=== PATIENT | male | born 1940 | race Hispanic/Latino ===

== ENCOUNTER 2018-05-10 09:44 | Emergency (ER) | payer OTHER ==
--- NOTE | 2018-05-10 10:45 | RAD REPORT ---
EXAM DESCRIPTION: RAD - Knee Left 3 View - 05/10/2018 10:40 am CLINICAL HISTORY: PAIN COMPARISON: No comparisons FINDINGS: Mild tricompartmental osteoarthritic changes are present, greatest in the medial joint com partment. No fracture, dislocation or joint effusion is evident. 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
--- NOTE | 2018-05-10 10:55 | ER ---
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 Transition of care: patient was not received from another setting of care. Onset of symptoms was May 10, 2018. Risk Assessment: Do you want to hurt yourself or someone else? Patient reports no desire to harm self or others. Initial Sepsis Screen: Does the patient meet any 2 criteria? No. Patient's initial sepsis screen is negative. Does the patient have a suspected source of infection? No. Patient's initial sepsis screen is negative. Care prior to arrival: None. 10:08 Method Of Arrival: Ambulatory tw2 10:08 Acuity: [place] 4 tw2 Triage Assessment: 10:12 General: Appears in no apparent distress. well groomed, Behavior is calm, cooperative, tw2 appropriate for age. Pain: Complains of pain in left knee. Historical: - Allergies: 10:11 No Known Allergies; tw2 - Home Meds: 10:11 metoprolol tartrate 25 mg Oral tab 2 tabs once daily [Active]; atorvastatin 80 mg oral tw2 tab 1 tab once daily [Active]; glucosamine-chondroitin oral oral [Active]; Multiple Vitamins oral tab [Active]; - PMHx: 10:11 Hypertension; Hyperlipidemia; tw2 - PSHx: 10:11 hydrocele repair; Heart stents; tw2 - Immunization history:: Adult Immunizations. - Social history:: Smoking status: . - Ebola Screening: : Patient denies travel to an Ebola-affected area in the 21 days before illness onset. Screenin:50 Abuse screen: Denies threats or abuse. Denies injuries from another. Nutritional iw screening: No deficits noted. Tuberculosis screening: No symptoms or risk factors identified. Fall Risk None identified. Assessment: 10:30 General: Appears in no apparent distress. comfortable, Behavior is calm, cooperative. iw Pain: Complains of pain in left knee. Neuro: Level of Consciousness is awake, alert, obeys commands, Oriented to person, place, time. Cardiovascular: Patient's skin is warm and dry. Respiratory: Respiratory effort is even, unlabored. Derm: Skin is intact, is healthy with good turgor. Musculoskeletal: Range of motion: limited in left knee. Vital Signs: 10:11 BP 146 / 51; Pulse 66; Resp 18; Temp 97.2(O); Pulse Ox 99% on R/A; Pain 4/10; tw2 ED Course: 09:48 Patient arrived in ED. dl4 09:48 Justen Starks MD is Private Physician. dl4 10:09 Triage completed. tw2 10:12 Arm band placed on. tw2 10:16 Jostin Patterson PA is PHCP. jr8 10:16 Hans Feldman MD is Attending Physician. jr8 10:30 Patient has correct armband on for positive identification. iw 10:40 X-ray completed. Portable x-ray completed in exam room. Patient tolerated procedure sw well. 10:40 XRAY Knee LEFT 3 view In Process Unspecified. EDMS 10:49 Riddhi Yung, RN is Primary Nurse. iw 10:54 Heath Garcia MD is Referral Physician. jr8 11:00 No provider procedures requiring assistance completed. Patient did not have IV access iw during this emergency room visit. Administered Medications: No medications were administered Outcome: 10:55 Discharge ordered by . jr8 11:00 Discharged to home ambulatory. iw 11:00 Condition: good 11:00 Discharge instructions given to patient, Instructed on discharge instructions, follow up and referral plans. medication usage, Demonstrated understanding of instructions, follow-up care, medications, Prescriptions given X 1. 11:03 Patient left the ED. iw Signatures: Dispatcher [employer] EDMS Riddhi Yung RN RN iw Jostin Patterson PA PA jr8 Virginia Lambert Chaparrita Grimaldo RN RN tw2 Dk Bee dl4
--- NOTE | 2018-05-10 10:55 | EDPHYS ---
Physician Documentation [facility] Name: Cordell Patterson Age: 78 yrs Sex: Male : 1940 Arrival Date: 05/10/2018 Time: 09:48 Bed 11 Private MD: Justen Starks ED Physician Hans Feldman HPI: 05/10 10:50 This 78 yrs old Male presents to ER via Ambulatory with complaints of Knee jr8 Pain. 10:50 The patient presents with pain. The complaints affect the left knee. Onset: The jr8 symptoms/episode began/occurred gradually, 2 day(s) ago. Modifying factors: The symptoms are alleviated by elevating leg, remaining still, the symptoms are aggravated by movement, weight bearing, bending knee. Associated signs and symptoms: The patient has no apparent associated signs or symptoms. Severity of symptoms: At their worst the symptoms were mild, in the emergency department the symptoms are unchanged. The patient has not experienced similar symptoms in the past. The patient has not recently seen a physician. 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 Stated that he started to have left knee pain with mild swelling. Denies trauma. Historical: - Allergies: 10:11 No Known Allergies; tw2 - Home Meds: 10:11 metoprolol tartrate 25 mg Oral tab 2 tabs once daily [Active]; atorvastatin 80 mg oral tw2 tab 1 tab once daily [Active]; glucosamine-chondroitin oral oral [Active]; Multiple Vitamins oral tab [Active]; - PMHx: 10:11 Hypertension; Hyperlipidemia; tw2 - PSHx: 10:11 hydrocele repair; Heart stents; tw2 - Immunization history:: Adult Immunizations. - Social history:: Smoking status: . - Ebola Screening: : Patient denies travel to an Ebola-affected area in the 21 days before illness onset. ROS: 10:50 Eyes: Negative for injury, pain, redness, and discharge, ENT: Negative for injury, jr8 pain, and discharge, Neck: Negative for injury, pain, and swelling, Cardiovascular: Negative for chest pain, palpitations, and edema, Respiratory: Negative for shortness of breath, cough, wheezing, and pleuritic chest pain, Abdomen/GI: Negative for abdominal pain, nausea, vomiting, diarrhea, and constipation, Back: Negative for injury and pain, Skin: Negative for injury, rash, and discoloration, Neuro: Negative for headache, weakness, numbness, tingling, and seizure. 10:50 MS/extremity: Positive for pain, swelling, tenderness, of the left knee. Exam: 10:50 Eyes: Pupils equal round and reactive to light, extra-ocular motions intact. Lids and jr8 lashes normal. Conjunctiva and sclera are non-icteric and not injected. Cornea within normal limits. Periorbital areas with no swelling, redness, or edema. ENT: Nares patent. No nasal discharge, no septal abnormalities noted. Tympanic membranes are normal and external auditory canals are clear. Oropharynx with no redness, swelling, or masses, exudates, or evidence of obstruction, uvula midline. Mucous membranes moist. Neck: Trachea midline, no thyromegaly or masses palpated, and no cervical lymphadenopathy. Supple, full range of motion without nuchal rigidity, or vertebral point tenderness. No Meningismus. Cardiovascular: Regular rate and rhythm with a normal S1 and S2. No gallops, murmurs, or rubs. Normal PMI, no JVD. No pulse deficits. Respiratory: Lungs have equal breath sounds bilaterally, clear to auscultation and percussion. No rales, rhonchi or wheezes noted. No increased work of breathing, no retractions or nasal flaring. Abdomen/GI: Soft, non-tender, with normal bowel sounds. No distension or tympany. No guarding or rebound. No evidence of tenderness throughout. Back: No spinal tenderness. No costovertebral tenderness. Full range of motion. Skin: Warm, dry with normal turgor. Normal color with no rashes, no lesions, and no evidence of cellulitis. Neuro: Awake and alert, GCS 15, oriented to person, place, time, and situation. Cranial nerves II-XII grossly intact. Motor strength 5/5 in all extremities. Sensory grossly intact. Cerebellar exam normal. Normal gait. 10:50 Musculoskeletal/extremity: Extremities: grossly normal except: noted in the left knee: pain, tenderness, ROM: intact in all extremities, Circulation is intact in all extremities. Sensation intact. Vital Signs: 10:11 BP 146 / 51; Pulse 66; Resp 18; Temp 97.2(O); Pulse Ox 99% on R/A; Pain 4/10; tw2 MDM: 10:22 Patient medically screened. jr8 10:50 Data reviewed: vital signs, nurses notes, radiologic studies, plain films, and as a jr8 result, I will discharge patient. Data interpreted: Pulse oximetry: on room air is 99 %. Interpretation: normal. Counseling: I had a detailed discussion with the patient and/or guardian regarding: the historical points, exam findings, and any diagnostic results supporting the discharge/admit diagnosis, radiology results, the need for outpatient follow up, a orthopedic surgeon, to return to the emergency department if symptoms worsen or persist or if there are any questions or concerns that arise at home. 05/10 10:22 Order name: XRAY Knee LEFT 3 view; Complete Time: 10:50 jr8 Administered Medications: No medications were administered Disposition: 11:05 Co-signature as Attending Physician, Hans Feldman MD I agree with the assessment and kdr plan of care. Disposition: 05/10/18 10:55 Discharged to Home. Impression: Osteoarthritis of knee, Pain in left knee. - Condition is Stable. - Discharge Instructions: Joint Pain, Arthritis, Knee Pain. - Prescriptions for Mobic 7.5 mg Oral Tablet - take 1 tablet by ORAL route once daily for 7 days take with food; 7 tablet. - Medication Reconciliation Form, Thank You Letter, Antibiotic Education, Prescription Opioid Use form. - Follow up: Heath Garcia MD; When: 1 week; Reason: Recheck today's complaints, Continuance of care, Re-evaluation by your physician. - Problem is new. - Symptoms have improved. Signatures: Dispatcher [employer] EDNC Hans Feldman MD MD kdr Riddhi Yung, RICKEY RN iw Jostin Patterson PA PA jr8 Chaparrita Grimaldo, RN RN tw2 Corrections: (The following items were deleted from the chart) 11:03 10:55 05/10/2018 10:55 Discharged to Home. Impression: Osteoarthritis of knee; Pain in iw left knee. Condition is Stable. Forms are Medication Reconciliation Form, Thank You Letter, Antibiotic Education, Prescription Opioid Use. Follow up: Heath Garcia; When: 1 week; Reason: Recheck today's complaints, Continuance of care, Re-evaluation by your physician. Problem is new. Symptoms have improved. jr8
[2018-05-10 11:15] VITALS: BP 146/51; TEMP 97.2; O2SAT 99
== END 2018-05-10 11:03 | disposition home or self-care (01) ==
LOC: ER 09:44
DX: M17.12 Unilateral primary osteoarthritis, left knee (principal); I10 Essential (primary) hypertension; E78.5 Hyperlipidemia, unspecified; Z95.818 Presence of other cardiac implants and grafts
CPT/HCPCS: 99283

== ENCOUNTER 2018-05-15 08:08 | Emergency (ER) | payer OTHER ==
--- NOTE | 2018-05-15 08:43 | EDPHYS ---
Physician Documentation [facility] Name: Cordell Patterson Age: 78 yrs Sex: Male : 1940 Arrival Date: 05/15/2018 Time: 08:11 Bed 13 Private MD: Justen Starks ED Physician Chau Berrios HPI: 05/15 08:33 This 78 yrs old Male presents to ER via Ambulatory with complaints of Pain cp meds not working, Knee Pain. 08:34 The patient presents with pain, that is acute. The complaints affect the left knee. cp Context: resulted from an unknown cause, the patient can fully bear weight, can ambulate using a cane. Onset: The symptoms/episode began/occurred 2 week(s) ago. Associated signs and symptoms: Pertinent negatives fever, swelling, warmth, weakness. Treatment prior to arrival includes: prescription medications, Mobic. 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 Denies injury to knee and believes getting in and out of forklift has caused pain. Patient was seen 05-10-2018 for similar complaints and had xrays taken at that visit . 08:34 Patient reports he has appt with DR Winn . cp Historical: - Allergies: 08:16 No Known Allergies; ss - Home Meds: 08:16 atorvastatin 80 mg Oral tab 1 tab once daily [Active]; metoprolol tartrate 25 mg Oral ss tab 2 tabs once daily [Active]; glucosamine-chondroitin Oral [Active]; Multiple Vitamins Oral tab [Active]; Mobic oral oral [Active]; - PMHx: 08:16 Hyperlipidemia; Hypertension; ss - PSHx: 08:16 hydrocele repair; Heart stents; ss - Immunization history:: Adult Immunizations up to date. - Social history:: Smoking status: Patient/guardian denies using tobacco. - Ebola Screening: : Patient denies exposure to infectious person Patient denies travel to an Ebola-affected area in the 21 days before illness onset. ROS: 08:36 Constitutional: Negative for body aches, fever. cp 08:36 Cardiovascular: Negative for chest pain. 08:36 Respiratory: Negative for cough, shortness of breath, wheezing. 08:36 Abdomen/GI: Negative for abdominal pain, nausea, vomiting, and diarrhea. 08:36 MS/extremity: Positive for pain, of the left knee, Negative for injury or acute deformity, decreased range of motion, swelling. 08:36 Skin: Negative for cellulitis, rash. 08:36 All other systems are negative. Exam: 08:38 Head/Face: Normocephalic, atraumatic. cp 08:38 Constitutional: The patient appears in no acute distress, alert, awake, comfortable, non-toxic, well developed, well nourished. 08:39 Eyes: Periorbital structures: appear normal, Conjunctiva: normal, no exudate, no cp injection, Sclera: no appreciated abnormality, Lids and lashes: appear normal, bilaterally. 08:39 ENT: External ear(s): are unremarkable, Nose: is normal, Mouth: is normal. 08:39 Chest/axilla: Inspection: normal. 08:39 Cardiovascular: Rate: normal. 08:39 Respiratory: the patient does not display signs of respiratory distress, Respirations: normal, no use of accessory muscles, no retractions, no splinting, no tachypnea. 08:39 Abdomen/GI: Exam negative for discomfort, distension, guarding, Inspection: abdomen appears normal. 08:39 Back: pain, is absent. 08:39 Musculoskeletal/extremity: Joints: All joints are normal except the left knee displays pain with weight bearing, no ROM limit, no swelling, no erythema noted. Vital Signs: 08:16 BP 170 / 69; Pulse 56; Resp 16; Temp 97.7(TE); Pulse Ox 99% on R/A; Weight 81.65 kg; ss Height 5 ft. 8 in. (172.72 cm); Pain 10/10; 09:05 BP 168 / 70; Pulse 56; Resp 18; Pulse Ox 100% on R/A; hj 08:16 Body Mass Index 27.37 (81.65 kg, 172.72 cm) ss MDM: 08:18 Patient medically screened. cp 08:41 Data reviewed: vital signs, nurses notes, old medical records, and as a result, I will cp discharge patient. 08:41 Counseling: I had a detailed discussion with the patient and/or guardian regarding: the cp historical points, exam findings, and any diagnostic results supporting the discharge/admit diagnosis, the need for outpatient follow up, for definitive care, a orthopedic surgeon, to return to the emergency department if symptoms worsen or persist or if there are any questions or concerns that arise at home. Administered Medications: No medications were administered Disposition: 09:15 Chart complete. cp 14:30 Co-signature as Attending Physician, Chau Berrios MD. rn Disposition: 05/15/18 08:42 Discharged to Home. Impression: Pain in left knee. - Condition is Stable. - Discharge Instructions: Elastic Bandage and RICE, Knee Pain. - Prescriptions for Tramadol 50 mg Oral Tablet - take 1 tablet by ORAL route every 8 hours as needed. 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 - Medication Reconciliation Form, Thank You Letter, Antibiotic Education, Prescription Opioid Use form. - Follow up: Howard Winn MD; When: as scheduled; Reason: Recheck today's complaints. - Problem is an ongoing problem. - Symptoms are unchanged. Signatures: Chau Berrios MD MD rn Smirch, Shelby, RN RN ss Joaquin, Henry, RN RN hj Page, Corey, PA PA cp Corrections: (The following items were deleted from the chart) 09:05 08:42 05/15/2018 08:42 Discharged to Home. Impression: Pain in left knee. Condition is hj Stable. Forms are Medication Reconciliation Form, Thank You Letter, Antibiotic Education, Prescription Opioid Use. Follow up: Howard Winn; When: as scheduled; Reason: Recheck today's complaints. Problem is an ongoing problem. Symptoms are unchanged. cp
--- NOTE | 2018-05-15 08:43 | ER ---
Nurse's Notes [facility] Name: Cordell Patterson Age: 78 yrs Sex: Male : 1940 Arrival Date: 05/15/2018 Time: 08:11 Bed 13 Private MD: Justen Starks Diagnosis: Pain in left knee Presentation: 05/15 08:14 Presenting complaint: Patient states: L knee pain x 2 weeks. Pt was prescribed Mobic ss for pain, but reports it isn't helping at all with his pain. Transition of care: patient was not received from another setting of care. Onset of symptoms was May 01, 2018. Risk Assessment: Do you want to hurt yourself or someone else? Patient reports no desire to harm self or others. Initial Sepsis Screen: Does the patient meet any 2 criteria? No. Patient's initial sepsis screen is negative. Does the patient have a suspected source of infection? No. Patient's initial sepsis screen is negative. Care prior to arrival: None. 08:14 Method Of Arrival: Ambulatory ss 08:14 Acuity: [place] 4 ss Triage Assessment: 08:33 General: Appears in no apparent distress. uncomfortable, Behavior is calm, cooperative, hj appropriate for age. Pain: Complains of pain in left knee. Historical: - Allergies: 08:16 No Known Allergies; ss - Home Meds: 08:16 atorvastatin 80 mg Oral tab 1 tab once daily [Active]; metoprolol tartrate 25 mg Oral ss tab 2 tabs once daily [Active]; glucosamine-chondroitin Oral [Active]; Multiple Vitamins Oral tab [Active]; Mobic oral oral [Active]; - PMHx: 08:16 Hyperlipidemia; Hypertension; ss - PSHx: 08:16 hydrocele repair; Heart stents; ss - Immunization history:: Adult Immunizations up to date. - Social history:: Smoking status: Patient/guardian denies using tobacco. - Ebola Screening: : Patient denies exposure to infectious person Patient denies travel to an Ebola-affected area in the 21 days before illness onset. Screenin:33 Abuse screen: Denies threats or abuse. Denies injuries from another. Nutritional hj screening: No deficits noted. Tuberculosis screening: No symptoms or risk factors identified. Fall Risk None identified. Assessment: 08:34 General: Appears in no apparent distress. uncomfortable, Behavior is calm, cooperative, hj appropriate for age. Pain: Complains of pain in left knee. Neuro: Level of Consciousness is awake, alert, obeys commands, Oriented to person, place, time, situation, Appropriate for age. Cardiovascular: Capillary refill < 3 seconds Patient's skin is warm and dry. Respiratory: Airway is patent Respiratory effort is even, unlabored, Respiratory pattern is regular, symmetrical. GI: No signs and/or symptoms were reported involving the gastrointestinal system. : No signs and/or symptoms were reported regarding the genitourinary system. EENT: No signs and/or symptoms were reported regarding the EENT system. Derm: No signs and/or symptoms reported regarding the dermatologic system. Musculoskeletal: Circulation, motion, and sensation intact. Range of motion:. 09:04 Reassessment: Patient and/or family updated on plan of care and expected duration. Pain hj level reassessed. Patient is alert, oriented x 3, equal unlabored respirations, skin warm/dry/pink. D/C instructions given;. Vital Signs: 08:16 BP 170 / 69; Pulse 56; Resp 16; Temp 97.7(TE); Pulse Ox 99% on R/A; Weight 81.65 kg; ss Height 5 ft. 8 in. (172.72 cm); Pain 10/10; 09:05 BP 168 / 70; Pulse 56; Resp 18; Pulse Ox 100% on R/A; hj 08:16 Body Mass Index 27.37 (81.65 kg, 172.72 cm) ED Course: 08:11 Patient arrived in ED. mr 08:12 Justen Starks MD is Private Physician. mr 08:15 Triage completed. ss 08:16 Arm band placed on left wrist. ss 08:18 Elder Yap PA is PHCP. cp 08:18 Chau Berrios MD is Attending Physician. cp 08:20 Daniel Valerio RN is Primary Nurse. hj 08:33 Patient has correct armband on for positive identification. Bed in low position. Call hj light in reach. Side rails up X 1. Adult w/ patient. 08:41 Howard Winn MD is Referral Physician. cp 09:03 No provider procedures requiring assistance completed. Patient did not have IV access hj during this emergency room visit. Administered Medications: No medications were administered Outcome: 08:42 Discharge ordered by . cp 09:04 Discharged to home ambulatory. 09:04 Condition: stable 09:04 Discharge instructions given to patient, Instructed on discharge instructions, follow up and referral plans. medication usage, Demonstrated understanding of instructions, follow-up care, medications, Prescriptions given X 1. 09:05 Patient left the ED. Signatures: Holly Ha Shelby, RN RN Daniel Valerio RN RN hj Elder Yap, [place] DO cp
[2018-05-15 09:41] VITALS: TEMP 97.7
[2018-05-15 09:42] VITALS: BP 168/70; O2SAT 100
== END 2018-05-15 09:05 | disposition home or self-care (01) ==
LOC: ER 08:08
DX: M25.562 Pain in left knee (principal); E78.5 Hyperlipidemia, unspecified; I10 Essential (primary) hypertension
CPT/HCPCS: 99282

== ENCOUNTER 2018-09-22 08:46 | Emergency (ER) | payer OTHER ==
[2018-09-22 10:43] LABS: Basophils % 0.6 % (0-1.3); Hematocrit 38.7 % (39.6-49.0); Lymphocytes % 20.1 % (15.3-44.8); MPV 9.8 fL (7.6-11.3); RBC Red Blood Cell Count 3.99 M/uL (4.33-5.43)
--- NOTE | 2018-09-22 10:46 | RAD REPORT ---
EXAM DESCRIPTION: Umesh Single View09/22/2018 10:40 am CLINICAL HISTORY: Shortness of breath COMPARISON: 2013 FINDINGS: The lungs appear clear of acute infiltrate. The heart is normal size. Aorta is tortuous/e ctatic IMPRESSION: No acute abnormalities displayed
[2018-09-22 10:58] LABS: Protime INR 0.99
[2018-09-22 11:18] LABS: ALT/SGPT 26 U/L (12-78); AST/SGOT 17 U/L (15-37); Albumin 3.7 g/dL (3.4-5.0); Alkaline Phosphatase 113 U/L (45-117); BUN Blood Urea Nitrogen 24 mg/dL (7-18); Bicarbonate 29 mmol/L (21-32); Bilirubin Direct 0.1 mg/dL (0-0.2); Bilirubin Total 0.4 mg/dL (0.2-1.0); Glucose Level 146 mg/dL (74-106); Magnesium 2.3 mg/dL (1.8-2.4); NT PRO-BNP 104 pg/mL (<450); Potassium 3.9 mmol/L (3.5-5.1); Protein, Total 7.3 g/dL (6.4-8.2); Sodium Level 143 mmol/L (136-145); Troponin (Emerg Dept Use Only) < 0.02 ng/mL (0.0-0.045)
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
--- NOTE | 2018-09-22 12:17 | ER ---
Nurse's Notes [facility] Name: Cordell Patterson Age: 78 yrs Sex: Male : 1940 Arrival Date: 09/22/2018 Time: 08:49 Bed 13 Private MD: Justen Starks Diagnosis: Anxiety disorder, unspecified Presentation: 09/22 09:05 Presenting complaint: Patient states: "I keep getting anxiety attacks for about 6 weeks aa5 now and when I get them it's hard to breath". Pt states "I've had them since I was little". Pt calm in triage, appears comfortable. Transition of care: patient was not received from another setting of care. 09:05 Method Of Arrival: Ambulatory aa5 09:05 Acuity: [place] 3 aa5 09:07 Onset of symptoms was 2019. Risk Assessment: Do you want to hurt yourself or someone aa5 else? Patient reports no desire to harm self or others. Initial Sepsis Screen: Does the patient meet any 2 criteria? No. Patient's initial sepsis screen is negative. Does the patient have a suspected source of infection? No. Patient's initial sepsis screen is negative. Care prior to arrival: None. Historical: - Allergies: 09:00 No Known Allergies; aa5 - PMHx: 09:00 Hyperlipidemia; Hypertension; aa5 - PSHx: 09:00 hydrocele repair; Heart stents; aa5 - Immunization history:: Flu vaccine is up to date. - Social history:: Smoking status: Patient/guardian denies using tobacco. - Ebola Screening: : No symptoms or risks identified at this time. Screenin:32 Abuse screen: Denies threats or abuse. Denies injuries from another. Nutritional sg screening: No deficits noted. Tuberculosis screening: No symptoms or risk factors identified. Never had TB. Fall Risk None identified. Assessment: 10:30 Reassessment: pt reports having increased anxiety that causes shortness of breath. sg General: Appears in no apparent distress. well groomed, well developed, well nourished, Behavior is calm, cooperative, appropriate for age, quiet. Pain: Denies pain. Neuro: Level of Consciousness is awake, alert, obeys commands, Oriented to person, place, time, situation, [employer] Supervisor are equal bilaterally Moves all extremities. Full function Gait is steady, Speech is normal, Facial symmetry appears normal. Cardiovascular: Capillary refill is brisk in bilateral fingers Patient's skin is warm and dry. Chest pain is denied. Respiratory: Airway is patent Respiratory effort is even, unlabored, Respiratory pattern is regular, symmetrical. GI: Abdomen is round non-distended, Reports normal bowel habits, tolerance of fluids, tolerance of food. : No signs and/or symptoms were reported regarding the genitourinary system. EENT: No signs and/or symptoms were reported regarding the EENT system. Derm: Skin is pink, warm \\T\\ dry. Derm: No signs and/or symptoms reported regarding the dermatologic system. Musculoskeletal: Circulation, motion, and sensation intact. Range of motion: intact in all extremities. Vital Signs: 09:09 BP 127 / 68; Pulse 64; Resp 16 S; Temp 98.2(TE); Pulse Ox 98% on R/A; Weight 81.65 kg aa5 (R); Height 5 ft. 8 in. (172.72 cm) (R); Pain 0/10; 10:56 BP 127 / 68; Pulse 47; Resp 16; Temp 98.0(O); Pulse Ox 98% ; mh5 12:01 BP 131 / 61; Pulse 47; Resp 16; Temp 98.2(O); Pulse Ox 97% on R/A; mh5 09:09 Body Mass Index 27.37 (81.65 kg, 172.72 cm) aa5 ED Course: 08:49 Patient arrived in ED. rg4 08:50 Justen Starks MD is Private Physician. rg4 09:05 Arm band placed on. aa5 09:07 Triage completed. aa5 09:59 Heath Nolen, RICKEY is Primary Nurse. sg 10:03 Veronica Michele FNP-C is PHCP. kb 10:03 Jason Shoemaker MD is Attending Physician. kb 10:30 Initial lab(s) drawn, by me, sent to lab. Inserted saline lock: 20 gauge in right upper sg arm, using aseptic technique. Blood collected. 10:39 X-ray completed. Portable x-ray completed in exam room. Patient tolerated procedure jb2 well. 10:43 XRAY Chest (1 view) In Process Unspecified. EDMS 10:59 Basic Metabolic Panel Sent. mh5 10:59 Basic Metabolic Panel Sent. mh5 10:59 CBC with Diff Sent. [facility] 11:07 EKG done, by radiation technician. reviewed by Jason Shoemaker MD. dt2 12:01 Patient has correct armband on for positive identification. Bed in low position. Call [facility] light in reach. Side rails up X 1. Pulse ox on. NIBP on. 12:16 Justen Starks MD is Referral Physician. kb 12:30 No provider procedures requiring assistance completed. IV discontinued, intact, sg bleeding controlled, No redness/swelling at site. Pressure dressing applied. Administered Medications: No medications were administered Outcome: 12:16 Discharge ordered by MD. kb 12:30 Discharged to home ambulatory, with family. sg 12:30 Condition: good 12:30 Discharge instructions given to patient, Instructed on discharge instructions, follow up and referral plans. no drinking with medication, no driving heavy equipment, medication usage, safety practices, Demonstrated understanding of instructions, follow-up care, medications, Prescriptions given X 1. 12:37 Patient left the ED. aa5 Signatures: Dispatcher [employer] [facility] Veronica Michele, COLLECTIONS SPECIALIST-C COLLECTIONS SPECIALIST-CkHeath Guo, RN RN Rito Bone Audri, RN RN [email or web address] Sonal Merritt Maria 5 Jannet Crenshaw dt2 Corrections: (The following items were deleted from the chart) 09:08 09:05 Presenting complaint: Patient states: "I keep getting anxiety attacks for about 6 aa5 weeks now". Pt states "I've had them since I was little". Pt calm in triage, appears comfortable. aa5
[2018-09-22 12:45] VITALS: BP 131/61; TEMP 98.2; O2SAT 97
--- NOTE | 2018-09-22 15:37 | EKG ---
Test Date: 2018-09-22 Test Time: 10:50:27 [employer] Detective: NGOZI MEASUREMENT RESULTS: Intervals: Rate: 45 HI: 186 QRSD: 94 QT: 420 QTc: 363 [place]: P: 60 HI: 186 QRS: 72 T: 65 INTERPRETIVE STATEMENTS: Marked sinus bradycardia Septal infarct, age undetermined Possible Lateral infarct, age undetermined Abnormal ECG Compared to ECG 01/21/2014 07:26:17 No significant changes Electronically Signed On 09-22-18 15:35:18 CDT by Mitul Villegas
== END 2018-09-22 12:37 | disposition home or self-care (01) ==
LOC: ER 08:46
DX: F41.9 Anxiety disorder, unspecified (principal); I10 Essential (primary) hypertension; Z95.818 Presence of other cardiac implants and grafts
CPT/HCPCS: 36415; 71045; 80048; 80076; 83735; 83880; 84484; 85025; 85610; 93005; 99284

== ENCOUNTER 2022-01-20 12:23 | Emergency (ER) | payer OTHER ==
--- OUTSIDE RECORDS SUMMARY | 2022-01-20 12:26 | XMS REPORT | Continuity of Care Document ---
:1940 Author Organization [facility] t Address 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, left knee [facility] [id number] Pain, Problem Common joint, Spirit knee, left - [facility] [id number] 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 Social History Social Habit Start Date Stop Date Quantity Comments Source History of Tobacco Use Co mmon Spirit - [facility] Sex Assigned At Com mon [facility] Smoking Status Start Date Stop Date Source Former Smoker 2021-11-19 00:00:00 2021-11-19 00:00:00 [facility] Medications Ordered Filled Start Stop Current Ordering Indication Dosage Frequency Signature Comments Components Source Medication Medication Date Date Medication? Clinician (SIG) Name Name LIDOCAINE LIDOCAINE 2018-0 No 10mg Com mon HCL 10MG/ML HCL 10MG/ML 3-14 S pirit 00:00: - [facility] Depo Medrol Depo Medrol 2018-0 No 40mg Common (40mg) (40mg) 05-18 Spirit 00:00: - [facility] Depo Medrol Depo Medrol 2018-0 No 40mg Common (40mg) (40mg) 05-18 Spirit 00:00: - [facility] LIDOCAINE LIDOCAINE 2018-0 No 10mg Com mon HCL 10MG/ML HCL 10MG/ML 3-14 S pirit 00:00: - [facility] Depo Medrol Depo Medrol 2019-0 No 40mg Common (40mg) (40mg) 05-18 Spirit 00:00: - [facility] LIDOCAINE LIDOCAINE 2018-0 No 10mg Com mon HCL 10MG/ML HCL 10MG/ML 3-14 S pirit 00:00: - [facility] Depo Medrol Depo Medrol 2019-0 No 40mg Common (40mg) (40mg) 14 Spirit 00:00: - [facility] LIDOCAINE LIDOCAINE 2019-0 No 10mg Com mon HCL 10MG/ML HCL 10MG/ML 3-14 S pirit 00:00: - [facility] Metoprolol Metoprolol No Metoprolol Tartrate 25 Tartrate 25 Tartrate MG MG 25 MG Atorvastati Atorvastati No Atorvastat n Calcium n Calcium in Calcium 80 MG 80 MG 80 MG metFORMIN metFORMIN No 1{table QD metFORMIN HCl ER 500 HCl ER 500 t_with_ HCl ER 500 MG MG evening MG _meal} Aspirin 81 Aspirin 81 No 1{table QD Aspirin 81 81 MG 81 MG t} 81 MG metFORMIN metFORMIN No metFORMIN HCl ER 500 HCl ER 500 HCl ER 500 MG MG MG Metoprolol Metoprolol No Metoprolol Tartrate 25 Tartrate 25 Tartrate MG MG 25 MG Atorvastati Atorvastati No Atorvastat n Calcium n Calcium in Calcium 80 MG 80 MG 80 MG metFORMIN metFORMIN No 1{table QD metFORMIN HCl ER 500 HCl ER 500 t_with_ HCl ER 500 MG MG evening MG _meal} Co Q 10 100 Co Q 10 100 No Co Q 10 MG MG 100 MG Glucosamine Glucosamine No 1{capsu Glucosamin 500 MG 500 MG le_with e 500 MG _a_meal } Aspirin 81 Aspirin 81 No 1{table QD Aspirin 81 81 MG 81 MG t} 81 MG Co Q 10 100 Co Q 10 100 No Co Q 10 MG MG 100 MG Glucosamine Glucosamine No 1{capsu Glucosamin 500 MG 500 MG le_with e 500 MG _a_meal } Atorvastati Atorvastati No Atorvastat n Calcium n Calcium in Calcium 80 MG 80 MG 80 MG Metoprolol Metoprolol No Metoprolol Tartrate 25 Tartrate 25 Tartrate MG MG 25 MG metFORMIN metFORMIN No 1{table QD metFORMIN HCl ER 500 HCl ER 500 t_with_ HCl ER 500 MG MG evening MG _meal} Aspirin 81 Aspirin 81 No 1{table QD Aspirin 81 81 MG 81 MG t} 81 MG Co Q 10 100 Co Q 10 100 No Co Q 10 MG MG 100 MG Glucosamine Glucosamine No 1{capsu Glucosamin 500 MG 500 MG le_with e 500 MG _a_meal } Atorvastati Atorvastati No Atorvastat n Calcium n Calcium in Calcium 80 MG 80 MG 80 MG Metoprolol Metoprolol No Metoprolol Tartrate 25 Tartrate 25 Tartrate MG MG 25 MG metFORMIN metFORMIN No 1{table QD metFORMIN HCl ER 500 HCl ER 500 t_with_ HCl ER 500 MG MG evening MG _meal} Aspirin 81 Aspirin 81 No 1{table QD Aspirin 81 81 MG 81 MG t} 81 MG Co Q 10 100 Co Q 10 100 No Co Q 10 MG MG 100 MG Glucosamine Glucosamine No 1{capsu Glucosamin 500 MG 500 MG le_with e 500 MG _a_meal } Atorvastati Atorvastati No Atorvastat n Calcium n Calcium in Calcium 80 MG 80 MG 80 MG Metoprolol Metoprolol No Metoprolol Tartrate 25 Tartrate 25 Tartrate MG MG 25 MG metFORMIN metFORMIN No 1{table QD metFORMIN HCl ER 500 HCl ER 500 t_with_ HCl ER 500 MG MG evening MG _meal} Atorvastati Atorvastati No Atorvastat n Calcium n Calcium in Calcium 80 MG 80 MG 80 MG metFORMIN metFORMIN No 1{table QD metFORMIN HCl ER 500 HCl ER 500 t_with_ HCl ER 500 MG MG evening MG _meal} Aspirin 81 Aspirin 81 No 1{table QD Aspirin 81 81 MG 81 MG t} 81 MG Glucosamine Glucosamine No 1{capsu Glucosamin 500 MG 500 MG le_with e 500 MG _a_meal } Metoprolol Metoprolol No Metoprolol Tartrate 25 Tartrate 25 Tartrate MG MG 25 MG Co Q 10 100 Co Q 10 100 No Co Q 10 MG MG 100 MG traMADol traMADol No traMADol HCl 50 MG HCl 50 MG HCl 50 MG Atorvastati Atorvastati No Atorvastat n Calcium n Calcium in Calcium 80 MG 80 MG 80 MG metFORMIN metFORMIN No 1{table QD metFORMIN HCl ER 500 HCl ER 500 t_with_ HCl ER 500 MG MG evening MG _meal} Aspirin 81 Aspirin 81 No 1{table QD Aspirin 81 81 MG 81 MG t} 81 MG Glucosamine Glucosamine No 1{capsu Glucosamin 500 MG 500 MG le_with e 500 MG _a_meal } Metoprolol Metoprolol No Metoprolol Tartrate 25 Tartrate 25 Tartrate MG MG 25 MG Co Q 10 100 Co Q 10 100 No Co Q 10 MG MG 100 MG traMADol traMADol No traMADol HCl 50 MG HCl 50 MG HCl 50 MG Glucosamine Glucosamine No 1{capsu Glucosamin 500 MG 500 MG le_with e 500 MG _a_meal } Co Q 10 100 Co Q 10 100 No Co Q 10 MG MG 100 MG Aspirin 81 Aspirin 81 No 1{table QD Aspirin 81 81 MG 81 MG t} 81 MG Immunizations Ordered Immunization Filled Immunization Date Status Commen ts Source Name Name LIDOCAINE HCL LIDOCAINE HCL 2018-05-18 Completed Common S pirit 10MG/ML 10MG/ML 09:28:00 - [facility] Depo Medrol (40mg) Depo Medrol (40mg) 2018-05-18 Completed Common Spirit 09:27:00 - [facility] Vital Signs Vital Name Observation Time Observation Value Comments Source height 2021-11-19 10:20:00 65.50 [in_i] [facility] 2021-11-19 10:20:00 172.2 [lb_av] Common [facility] temperature 2021-11-19 10:20:00 97.3 [degF] Common S pirit [facility] bmi 2021-11-19 10:20:00 28.22 kg/m2 Common S [facility] oximetry 2021-11-19 10:20:00 98 % Common S [facility] respiratory rate 2021-11-19 10:20:00 16 /min Comm on [facility] blood pressure 2021-11-19 10:20:00 130 mm[Hg] Common [facility] - systolic [facility] blood pressure 2021-11-19 10:20:00 62 mm[Hg] Common [facility] - diastolic [facility] height 2021-11-19 10:20:00 65.50 [in_i] Common [facility] weight 2021-11-19 10:20:00 172.2 [lb_av] Common [facility] temperature 2021-11-19 10:20:00 97.3 [degF] Common [facility] bmi 2021-11-19 10:20:00 28.22 kg/m2 [facility] oximetry 2021-11-19 10:20:00 98 % Common S [facility] respiratory rate 2021-11-19 10:20:00 16 /min Comm on [facility] blood pressure 2021-11-19 10:20:00 130 mm[Hg] Common [facility] - systolic [facility] blood pressure 2021-11-19 10:20:00 62 mm[Hg] Common [facility] - diastolic [facility] height 2021-09-24 08:20:00 65.50 [in_i] Common [facility] weight 2021-09-24 08:20:00 172.4 [lb_av] Common [facility] temperature 2021-09-24 08:20:00 97.2 [degF] Common [facility] bmi 2021-09-24 08:20:00 28.25 kg/m2 [facility] oximetry 2021-09-24 08:20:00 98 % [facility] respiratory rate 2021-09-24 08:20:00 16 /min Comm on [facility] blood pressure 2021-09-24 08:20:00 136 mm[Hg] Common [facility] - systolic [facility] blood pressure 2021-09-24 08:20:00 72 mm[Hg] Common [facility] diastolic [facility] height 2021-03-26 08:20:00 68 [in_i] [facility] weight 2021-03-26 08:20:00 172 [lb_av] [facility] temperature 2021-03-26 08:20:00 96.4 [degF] Common [facility] bmi 2021-03-26 08:20:00 26.15 kg/m2 [facility] oximetry 2021-03-26 08:20:00 99 % [facility] respiratory rate 2021-03-26 08:20:00 24 /min Comm on [facility] blood pressure 2021-03-26 08:20:00 138 mm[Hg] Common [facility] systolic [facility] blood pressure 2021-03-26 08:20:00 78 mm[Hg] Common [facility] diastolic [facility] Procedures This patient has no known procedures. Encounters Start End Encounter Admission Attending Care Care Encounter Source Date/Time Date/Time Type Type Clinicians Facility Department ID 2021-11-17 Outpatient Belle Luna [facility] [id number] 2 Common 10:22:02 [facility] 2021-09-22 Outpatient Belle Luna [facility] [id number] 2 Common 13:16:01 [facility] 2021-04-01 Outpatient Luna, Na STLMLC STLML[facility] [id number] 2 Common 14:37:38 [facility] 2021-04-01 Outpatient Luna, Na STLMLC STLMLC [id number] 2 Common 13:27:39 [id number] [facility] 2021-04-01 Outpatient Luna, Na STLMLC STLMLC [id number] 2 Common 13:05:35 [id number] [facility] 2021-04-01 Outpatient Luna, Na STLMLC STLMLC [id number] 2 Common 13:04:59 [id number] [facility] 2021-11-19 2021-11-19 SUB ANNUAL STLMLC STLMLC [id number] Common 00:00:00 00:00:00 MCR [facility] VISIT [facility] 2021-11-19 2021-11-19 NO CHARGE STLMLC STLMLC [id number] Common 00:00:00 00:00:00 [facility] 2021-09-24 2021-09-24 OFFICE STLMLC STLMLC [id number] Co mmon 00:00:00 00:00:00 VISIT [facility] PT - CHI LEVEL 4 [facility] 2021-03-26 2021-03-26 OFFICE STLMLC STLMLC [id number] Co mmon 00:00:00 00:00:00 VISIT [facility] PT - CHI LEVEL 4 [facility] 2021-02-23 2021-02-23 (TEL) STLMLC STLMLC [id number] Co mmon 00:00:00 00:00:00 [facility] 2020-12-22 2020-12-22 (TEL) STLMLC STLMLC [id number] Co mmon 00:00:00 00:00:00 [facility] 2020-09-23 2020-09-23 Outpatient STLMLC STLMLC [id number] Common 00:00:00 00:00:00 [facility] 2020-09-23 2020-09-23 Outpatient STLMLC STLMLC [id number] Common 00:00:00 00:00:00 [facility] 2020-09-23 2020-09-23 [facility] [id number] Common 00:00:00 00:00:00 [facility] Results This patient has no known results.
--- NOTE | 2022-01-20 13:43 | RAD REPORT ---
EXAM DESCRIPTION: CT - CTHCSPWOC - 01/20/2022 1:18 pm CLINICAL HISTORY: Trauma, head and neck injury. fall COMPARISON: No comparisons TECHNIQUE: Axial 5 mm thick images of the head were obtained. Axial 2 mm thick images of the cervical spine were obtained with sagittal and coronal reconstruction images generated and reviewed. All CT scans are performed using dose optimization technique as appropriate and may include automated exposure control or mA/KV adjustment according to patient size. FINDINGS: CT HEAD WITHOUT CONTRAST: No acute hemorrhage, hydrocephalus or extra-axial collection is identified.Moderate brain atrophy.No areas of brain edema or midline shift. The paranasal sinuses and mastoids are clear.Moderate lower cervical degenerative changes.The calvari um is intact. Mild carotid atherosclerosis. CT CERVICAL SPINE WITHOUT CONTRAST: No fracture or subluxation.No prevertebral soft tissues swelling is identified. IMPRESSION: No acute intracranial or cervical spine findings. Moderate lower cervical degenerative changes.
--- NOTE | 2022-01-20 13:45 | RAD REPORT ---
EXAM DESCRIPTION: RAD - Knee Left 3 View - 01/20/2022 1:41 pm CLINICAL HISTORY: PAIN COMPARISON: Knee Left 3 View dated 05/10/2018 FINDINGS: Multipart fracture is present involving the patella. Moderate soft tissue swelling anterio r to the patella. Small suprapatellar joint effusion. IMPRESSION: Multipart patella fracture.
--- NOTE | 2022-01-20 13:47 | RAD REPORT ---
EXAM DESCRIPTION: RAD - Hand Left 3 View - 01/20/2022 1:40 pm CLINICAL HISTORY: PAIN COMPARISON: No comparisons FINDINGS: Diffuse osteopenia is seen. The degree of osteopenia somewhat limits assessment. Slight co rtical step-off seen involving the region of the radial styloid, could be fracture if the patient is point tender in this region.
--- NOTE | 2022-01-20 14:47 | EDPHYS ---
Physician Documentation [facility] Name: Cordell Patterson Age: 81 yrs Sex: Male : 1940 Arrival Date: 01/20/2022 Time: 12:48 Bed DIS3 Private MD: ED Physician Elder Cruz HPI: 01/20 13:05 This 81 yrs old Male presents to ER via Wheelchair with complaints of Fall cp Injury. 13:05 Details of fall: The patient fell from an upright position, while walking. cp 13:05 Onset: The symptoms/episode began/occurred just prior to arrival. Associated injuries: cp The patient sustained injury to the head, abrasion, left hand, painful injury, swelling, left knee cap, decreased range of motion, deformity, painful injury. 13:05 Severity of symptoms: in the emergency department the symptoms are unchanged, despite cp home interventions. Historical: - Allergies: 13:00 No Known Allergies; ll1 - PMHx: 13:00 Hyperlipidemia; Hypertension; ll1 - PSHx: 13:00 heart stent; ll1 - Immunization history:: Client reports receiving the 2nd dose of the Covid vaccine. - Social history:: Smoking status: Patient denies any tobacco usage or history of. ROS: 13:10 Constitutional: Negative for body aches, chills, fever, poor PO intake. cp 13:10 Eyes: Negative for injury, pain, redness, and discharge. cp 13:10 ENT: Negative for drainage from ear(s), ear pain, sore throat, difficulty swallowing, difficulty handling secretions. 13:10 Neck: Negative for stiffness. 13:10 Cardiovascular: Negative for chest pain, palpitations. 13:10 Respiratory: Negative for cough, shortness of breath, wheezing. 13:10 Abdomen/GI: Negative for abdominal pain, nausea, vomiting, and diarrhea. 13:10 Back: Negative for pain at rest, pain with movement. 13:10 MS/extremity: Positive for injury or acute deformity, decreased range of motion, pain, swelling, tenderness, of the left knee. 13:10 Neuro: Negative for altered mental status, headache, numbness, syncope, weakness. 13:10 All other systems are negative. Exam: 13:20 Constitutional: The patient appears in no acute distress, alert, awake, non-toxic, well cp developed, well nourished. 13:20 Head/face: Noted is abrasion(s), that are mild, of the right yazidism. cp 13:20 Eyes: Periorbital structures: appear normal, Pupils: equal, round, and reactive to light and accomodation, Extraocular movements: intact throughout, Conjunctiva: normal, no exudate, no injection, Sclera: no appreciated abnormality, Lids and lashes: appear normal, bilaterally. 13:20 ENT: External ear(s): are unremarkable, Nose: is normal, Mouth: Lips: moist, Oral mucosa: pink and intact, moist, Posterior pharynx: Airway: no evidence of obstruction, patent. 13:20 Neck: C-spine: vertebral tenderness, is not appreciated, crepitus, is not appreciated, ROM/movement: is normal, is supple, without pain, no range of motions limitations, no nuchal rigidity. 13:20 Chest/axilla: Inspection: normal, Palpation: is normal, no crepitus, no tenderness. 13:20 Cardiovascular: Rate: tachycardic, Rhythm: regular. 13:20 Respiratory: the patient does not display signs of respiratory distress, Respirations: normal, no use of accessory muscles, no retractions, labored breathing, is not present, Breath sounds: are clear throughout, no decreased breath sounds, no stridor, no wheezing. 13:20 Abdomen/GI: Inspection: abdomen appears normal, Palpation: abdomen is soft and non-tender, in all quadrants. 13:20 Back: pain, is absent, ROM is normal, vertebral tenderness, is not appreciated. 13:20 Musculoskeletal/extremity: Extremities: noted in the left patella: decreased ROM, pain, swelling, tenderness, noted in the left hand: swelling, tenderness, ROM: limited active range of motion, in the left knee, Perfusion: the extremity is normally perfused throughout, Sensation intact. 13:20 Neuro: Orientation: to person, place \T\ time. Mentation: is normal, Motor: moves all fours, strength is normal. Vital Signs: 12:57 BP 155 / 72; Pulse 52; Resp 16; Temp 97.7; Pulse Ox 97% ; Weight 79.38 kg; Pain 9/10; ll1 15:04 BP 158 / 70; Pulse 51; Pulse Ox 98% ; ap3 Procedures: 15:00 Splinting: Splint applied to left knee using knee immobilizer, applied by nurse. cp Examined by me, post splint application: neurovascular intact, Patient tolerated well. MDM: 14:20 Patient medically screened. cp 14:45 Data reviewed: vital signs, nurses notes, radiologic studies, plain films, and as a cp result, I will discharge patient. 14:45 Test interpretation: by ED physician or midlevel provider: plain radiologic studies. cp Counseling: I had a detailed discussion with the patient and/or guardian regarding: the historical points, exam findings, and any diagnostic results supporting the discharge/admit diagnosis, radiology results. 14:45 Response to treatment: the patient's symptoms have markedly improved after treatment, cp and as a result, I will discharge patient. 01/20 13:00 Order name: CT Head C Spine; Complete Time: 14:20 cp 01/20 14:20 Interpretation: Reviewed report. cp 01/20 13:00 Order name: XRAY Hand LEFT 3 View; Complete Time: 14:20 cp 01/20 14:41 Interpretation: Report reviewed. cp 01/20 13:00 Order name: XRAY Knee LEFT 3 view; Complete Time: 14:20 cp 01/20 14:42 Order name: Wrist Splint; Complete Time: 14:58 cp 01/20 14:42 Order name: Knee Immobilizer; Complete Time: 14:57 cp 01/20 14:42 Order name: Crutches; Complete Time: 14:57 cp Administered Medications: 15:03 Drug: Hydrocodone-Acetaminophen (7.5 mg-325 mg) 1 tabs Route: PO; [facility] 15:04 Follow up: Response: Medication administered at discharge. [facility] 15:03 Drug: Ibuprofen 800 mg Route: PO; jl7 15:04 Follow up: Response: Medication administered at discharge. jl7 Disposition: 01/21 09:29 Co-signature as Attending Physician, Elder Cruz MD I agree with the assessment and aidee plan of care. Disposition Summary: 01/20/22 14:46 Discharge Ordered Location: Home cp Problem: new cp Symptoms: have improved cp Condition: Stable cp Diagnosis - Displaced comminuted fracture of left patella, initial encounter for closed fracturecp - Nondisplaced fracture of left radial styloid process, initial encounter for closed cp fracture - Contusion of other part of head, initial encounter cp Followup: cp - With: Franklyn Bates MD - When: 2 - 3 days - Reason: left patella fracture and left wrist fracture Discharge Instructions: - Discharge Summary Sheet cp - Facial or Scalp Contusion cp - Patellar Fracture, Adult cp - Radial Fracture cp Forms: - Medication Reconciliation Form cp - Thank You Letter cp - Antibiotic Education cp - Prescription Opioid Use cp Prescriptions: - Ibuprofen 800 mg Oral Tablet - take 1 tablet by ORAL route every 8 hours As needed take with food; 30 tablet; cp Refills: 0, Product Selection Permitted - Tramadol 50 mg Oral Tablet - take 1 tablet by ORAL route every 8 hours as needed; 12 tablet; Refills: 0, cp Product Selection Permitted Signatures: Dispatcher [employer] EDElder Roche MD MD cha Page, Corey, PA PA Dave Loo RN RN jl7 Rory Melgar RN RN ll1 Corrections: (The following items were deleted from the chart) 15:06 11/16 10:20 Constitutional: The patient appears in no acute distress, alert, awake, cp non-toxic, well developed, well nourished, cp
--- NOTE | 2022-01-20 14:47 | ER ---
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 States L knee ll1 "is broken in half". Slight L wrist pain,. Abrasion R side of head, baby aspirin only. Coronavirus screen: Vaccine status: Patient reports receiving the 2nd dose of the covid vaccine. Client denies travel out of the [place] in the last 14 days. At this time, the client does not indicate any symptoms associated with coronavirus-19. Ebola Screen: Patient denies travel to an Ebola-affected area in the 21 days before illness onset. Initial Sepsis Screen: Does the patient meet any 2 criteria? No. Patient's initial sepsis screen is negative. Does the patient have a suspected source of infection? Yes: Skin breakdown/wound Bone or joint infection. Risk Assessment: Do you want to hurt yourself or someone else? Patient reports no desire to harm self or others. Onset of symptoms was January 20, 2022. 12:57 Method Of Arrival: Wheelchair ll1 12:57 Acuity: [place] 3 ll1 Triage Assessment: 13:01 General: Appears uncomfortable, Behavior is cooperative, appropriate for age. Pain: ll1 Complains of pain in left leg. Neuro: Reports headache. Derm: abrasion R eye area. Musculoskeletal: Reports pain in left arm and left leg. Historical: - Allergies: 13:00 No Known Allergies; ll1 - PMHx: 13:00 Hyperlipidemia; Hypertension; ll1 - PSHx: 13:00 heart stent; ll1 - Immunization history:: Client reports receiving the 2nd dose of the Covid vaccine. - Social history:: Smoking status: Patient denies any tobacco usage or history of. Screenin:03 Abuse screen: Denies threats or abuse. Denies injuries from another. Nutritional jl7 screening: No deficits noted. Tuberculosis screening: No symptoms or risk factors identified. Fall Risk Total Miller Fall Scale indicates Low Risk Score (25-44 pts). Fall prevention measures have been instituted. As available Patient and Family Educated on Fall Prevention Program and strategies. Vital Signs: 12:57 BP 155 / 72; Pulse 52; Resp 16; Temp 97.7; Pulse Ox 97% ; Weight 79.38 kg; Pain 9/10; ll1 15:04 BP 158 / 70; Pulse 51; Pulse Ox 98% ; ap3 ED Course: 12:48 Patient arrived in ED. as 12:59 Elder Yap PA is PHCP. cp 12:59 Elder Cruz MD is Attending Physician. cp 13:00 Triage completed. ll1 13:01 Arm band placed on. ll1 13:20 CT Head C Spine In Process Unspecified. EDMS 13:41 XRAY Hand LEFT 3 View In Process Unspecified. EDMS 13:41 XRAY Knee LEFT 3 view In Process Unspecified. EDMS 14:42 Franklyn Bates MD is Referral Physician. cp 15:03 Dave Gardner, RICKEY is Primary Nurse. jl7 15:03 Patient has correct armband on for positive identification. jl7 15:03 Crutch training done. Velcro wrist splint applied to left wrist. Knee immobilizer jl7 applied on left knee. 15:04 No provider procedures requiring assistance completed. Patient did not have IV access ap3 during this emergency room visit. Administered Medications: 15:03 Drug: Hydrocodone-Acetaminophen (7.5 mg-325 mg) 1 tabs Route: PO; jl7 15:04 Follow up: Response: Medication administered at discharge. jl7 15:03 Drug: Ibuprofen 800 mg Route: PO; jl7 15:04 Follow up: Response: Medication administered at discharge. jl7 Medication: 15:04 VIS not applicable for this client. jl7 Outcome: 14:46 Discharge ordered by . cp 15:05 Discharged to home via wheelchair, with crutches. ap3 15:05 Condition: good 15:05 Discharge instructions given to patient, Instructed on discharge instructions, follow up and referral plans. medication usage, crutch walking, Demonstrated understanding of instructions, follow-up care, medications, crutch walking, Prescriptions given X 2. 15:09 Patient left the ED. jl7 Signatures: Dispatcher [employer] Maribeth Whaley Corey, PA PA cp Leal, Jahala RN RN jl7 Dianna Restrepo RN RN ap3 Rory Melgar RN RN ll1
[2022-01-20] MEDS ORDERED: HYDROCODONE/APAP 7.5/325 MG TAB ONE (15:00)
[2022-01-20] MEDS ORDERED: IBUPROFEN 400 MG TAB ONE (15:00)
[2022-01-20 15:14] VITALS: TEMP 97.7
[2022-01-20 15:15] VITALS: BP 158/70; O2SAT 98
== END 2022-01-20 15:09 | disposition home or self-care (01) ==
LOC: ER 12:23
PROC: 2W3MX1Z Immobilization of Left Lower Extremity using Splint (ICD-10-PCS; principal; 2022-01-20)
PROC: 2W3DX1Z Immobilization of Left Lower Arm using Splint (ICD-10-PCS; 2022-01-20)
DX: S82.042A Displaced comminuted fracture of left patella, initial encounter for closed fracture (principal); S52.515A Nondisplaced fracture of left radial styloid process, initial encounter for closed fracture; S00.83XA Contusion of other part of head, initial encounter; I10 Essential (primary) hypertension; Z95.818 Presence of other cardiac implants and grafts
CPT/HCPCS: 70450; 72125; 99284

== ENCOUNTER 2022-01-26 09:27 | Day surgery (SDC) | payer OTHER ==
[2022-01-25 09:55] LABS: Absolute Lymphocytes (CBC) 1.2 K/uL (0.7-4.9); Hematocrit 37.1 % (39.6-49.0); Lymphocytes % 18.5 % (15.3-44.8); MCV 95.8 fL (80-100); RBC Red Blood Cell Count 3.87 M/uL (4.33-5.43)
[2022-01-25 10:14] LABS: Potassium 4.2 mmol/L (3.5-5.1)
--- NOTE | 2022-01-25 15:28 | EKG ---
Test Date: 2022-01-25 Test Time: 08:49:05 Clinical Care Coordinator: JULIET MEASUREMENT RESULTS: Intervals: Rate: 53 MO: 150 QRSD: 86 QT: 408 QTc: 382 Alpha: P: MO: 150 QRS: 59 T: 56 INTERPRETIVE STATEMENTS: Sinus bradycardia Septal infarct, age undetermined Possible Lateral infarct, age undetermined Abnormal ECG Compared to ECG 09/22/2018 10:50:27 No significant changes Electronically Signed On 01-25-22 15:27:12 NURSE ADMINISTRATOR by Marcelo Castano
[2022-01-26] MEDS ORDERED: NA CHLORIDE 0.9% 1,000 ML ONE (09:55)
[2022-01-26] MEDS ORDERED: CEFAZOLIN SODIUM 1 GM/VIAL ONE (09:55)
[2022-01-26] MEDS ORDERED: FENTANYL CITR 100 MCG/2 ML ONE (10:32)
[2022-01-26] MEDS ORDERED: MIDAZOLAM HCL 2 MG/2 ML INJ ONE (10:32)
[2022-01-26] MEDS ORDERED: LIDOCAINE 1% MPF 5 ML VIAL ONE (10:32)
[2022-01-26] MEDS ORDERED: dexAMETHasone 10 MG/ML VIAL ONE (10:32)
[2022-01-26] MEDS ORDERED: EPINEPHRINE/PF 1 MG/ML AMP ONE (10:33)
[2022-01-26] MEDS ORDERED: TRANEXAMIC ACID 1,000 MG/10 ML VIAL IV ONE (10:40)
[2022-01-26] MEDS ORDERED: propofoL 200 MG/20 ML VIAL IV ONE (12:52)
[2022-01-26] MEDS ORDERED: LIDOCAINE 2% MPF 5 ML VIAL ONE (12:52)
[2022-01-26] MEDS ORDERED: GLYCOPYRROLATE 0.2 MG/ML SYR ONE (14:09)
[2022-01-26 17:34] VITALS: BP 155/64; TEMP 96.6; O2SAT 97
--- NOTE | 2022-01-26 19:19 | RAD REPORT ---
EXAM DESCRIPTION: RAD - Fluoroscopy <1 Hour - 01/26/2022 4:22 pm CLINICAL HISTORY: ORIF LT PATELLA COMPARISON: No comparisons FINDINGS/IMPRESSION: Nine intraoperative fluoroscopic images were submitted showing fixation of a pa tellar fracture. Fluoro time: 0.1 minutes Cumulative dose: 0.357 mGy
--- NOTE | 2022-01-26 20:03 | OP ---
Date of Procedure: 01/26/2022 Surgeon: Heath Garcia MD Preoperative Diagnoses: 1.Left radial styloid fracture. 2.Left comminuted highly displaced patellar fracture. Procedures: 1.Open reduction and internal fixation of highly comminuted patella fracture. 2.Casting of left distal radius fracture. Estimated Blood Loss: 20 cc. Complications: There were no complications. Indications For Operation: Mr. Patterson is a 81-year-old male, who unfortunately fell injuring his left lower extremity and left upper extremity. He came to see me in my office where he was in a knee immobilizer and arrived with x-rays, which demonstrated a nondisplaced radial styloid fracture as we ll as a highly displaced and comminuted left patella fracture. Risks, benefits, and alternatives of different methods of treatment of this have been discussed with him and at this time, we will treat h is left wrist nonoperatively in a cast as well as open reduction and internal fixation of his patella with possibility of partial patellectomy if too comminuted. He says he understands things as presen morena and wishes to proceed. Description Of Procedure: The patient was taken to the operating room, placed in supine position. G eneral anesthesia was obtained by the staff. Following this, a well-padded tourniquet was placed on the superior left thigh. Left lower extremity was then prepped and draped in the usual fashion proce josue. Following this, the leg was then elevated, but not exsanguinated and traction was placed on th e superior pole of the patella to try to lengthen the quadriceps. The tourniquet was raised. After this, a standard anterior incision was taken down carefully through the skin and soft tissues. Metic ulous hemostasis being maintained using Bovie electrocautery. This leads down to the patella. The f racture site was meticulously clean. It was found to be highly comminuted distal fragment; however, it appeared to hold together quite well. The decision was not to move forward with partial patellect janice and to attempt open reduction and internal fixation, and two 0.062 K-wires were then placed anter iorly, which appeared to hold well in the cortex. After this, the tension band wire was then placed and tightened with a Castorena clamp. After this was placed and tightened, the knee was then brought up to full flexion without any obvious gapping or loss of fixation. Decision was made to bend the pins and use this as the final construct. The wound was then copiously irrigated and the skin was closed using interrupted 2-0 Vicryl sutures followed by mitchell. The patient was then placed in extremely w ell-padded sterile dressing as well as a posterior slab of Ortho-Glass and a knee immobilizer. Atten tion was then turned to the left wrist where a standard short-arm cast was placed without difficulty and allowed to harden. After this, he was awakened and taken to recovery room. CHRISTOPHER Voice ID: [id number] Report ID: [id number]
== END 2022-01-26 17:30 | disposition home or self-care (01) ==
LOC: OR 09:27
PROVIDERS: ATTEND Orthopaedic Surgery
PROC: 2W3FX1Z Immobilization of Left Hand using Splint (ICD-10-PCS; 2022-01-26)
PROC: 0QSF04Z Reposition Left Patella with Internal Fixation Device, Open Approach (ICD-10-PCS; principal; 2022-01-26 12:00)
DX: S52.512A Displaced fracture of left radial styloid process, initial encounter for closed fracture (principal); S82.042A Displaced comminuted fracture of left patella, initial encounter for closed fracture; E11.9 Type 2 diabetes mellitus without complications; I10 Essential (primary) hypertension; I25.10 Atherosclerotic heart disease of native coronary artery without angina pectoris; I25.2 Old myocardial infarction
CPT/HCPCS: 93005; 85025; 80048; 36415; 82947 ×2; 97161; 27524; 29125; J2704; J0171; J2001 ×2; J2250; J3010; J1100; J7030; J0690; 76000

== ENCOUNTER 2023-03-17 15:40 | Observation (INO) | payer OTHER ==
--- OUTSIDE RECORDS SUMMARY | 2023-03-17 15:44 | XMS REPORT | Continuity of Care Document ---
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 Role Phone Tl Griffiths Attending Clinician Unavailable Belle Luna Attending Clinician Unavailable Payers Payer Name Policy Type Policy Number Effective Date Expirati on Date Source [employer] MEDICARE PPO 53 [id number] 2020 00:00:00 [facility] Problems Condition Name Condition Details Condition Category Status Onset Date Resolution Date Last Treatment Date Treating Clinician Comments Source [id number] Displaced comminuted fracture of left patella, initial encounter for closed fracture Problem [facility] [id number] Nondisplac ed fracture of left radial styloid process, initial encounter for closed fracture Problem [facility] [id number] Pain in joint of left wrist Problem [facility] [id number] Closed Colles' fracture of left radius with routine healing, subsequent encounter Problem [facility] [id number] Unilateral primary osteoarthr itis, left knee Problem [facility] [id number] Pain, joint, knee, left Problem [facility] [id number] Coronary artery disease involving [place] coronary artery of [place] heart without angina pectoris Problem [facility] [id number] Mixed hyperlipid emia Problem [facility] [id number] Vitamin D deficiency Problem [facility] [id number] Essential hypertensi on Problem [facility] [id number] Controlled type 2 diabetes mellitus without complicati on, without long-term current use of insulin Problem [facility] [id number] 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 Ordering Clinician Indication Dosage Frequency Signature (SIG) Comments Components Source HYDROcodone -Acetaminop hen 5-325 MG HYDROcodone -Acetaminop hen 5-325 MG 2021-03 00:00: 00 No 1{table t_as_ne eded} HYDROcodon e-Acetamin ophen 5-325 MG HYDROcodone -Acetaminop hen 5-325 MG HYDROcodone -Acetaminop hen 5-325 MG 2021-03 00:00: 00 No 1{table t_as_ne eded} HYDROcodon e-Acetamin ophen 5-325 MG HYDROcodone -Acetaminop hen 5-325 MG HYDROcodone -Acetaminop hen 5-325 MG 2021-03 00:00: 00 No 1{table t_as_ne eded} HYDROcodon e-Acetamin ophen 5-325 MG HYDROcodone -Acetaminop hen 5-325 MG HYDROcodone -Acetaminop hen 5-325 MG 2021-03 00:00: 00 No 1{table t_as_ne eded} HYDROcodon e-Acetamin ophen 5-325 MG HYDROcodone -Acetaminop hen 5-325 MG HYDROcodone -Acetaminop hen 5-325 MG 2021-03 00:00: 00 No 1{table t_as_ne eded} HYDROcodon e-Acetamin ophen 5-325 MG HYDROcodone -Acetaminop hen 5-325 MG HYDROcodone -Acetaminop hen 5-325 MG 2021-03 00:00: 00 No 1{table t_as_ne eded} HYDROcodon e-Acetamin ophen 5-325 MG HYDROcodone -Acetaminop hen 5-325 MG HYDROcodone -Acetaminop hen 5-325 MG 2021-03 00:00: 00 No 1{table t_as_ne eded} HYDROcodon e-Acetamin ophen 5-325 MG LIDOCAINE HCL 10MG/ML LIDOCAINE HCL 10MG/ML 14 00:00: 00 No 10mg [facility] Depo Medrol (40mg) Depo Medrol (40mg) 05-18 00:00: 00 No 40mg [facility] Depo Medrol (40mg) Depo Medrol (40mg) 05-18 00:00: 00 No 40mg [facility] LIDOCAINE HCL 10MG/ML LIDOCAINE HCL 10MG/ML 05-18 00:00: 00 No 10mg [facility] Depo Medrol (40mg) Depo Medrol (40mg) 05-18 00:00: 00 No 40mg [facility] LIDOCAINE HCL 10MG/ML LIDOCAINE HCL 10MG/ML 05-18 00:00: 00 No 10mg [facility] Depo Medrol (40mg) Depo Medrol (40mg) 05-18 00:00: 00 No 40mg [facility] LIDOCAINE HCL 10MG/ML LIDOCAINE HCL 10MG/ML 05-18 00:00: 00 No 10mg [facility] Depo Medrol (40mg) Depo Medrol (40mg) 05-18 00:00: 00 No 40mg [facility] LIDOCAINE HCL 10MG/ML LIDOCAINE HCL 10MG/ML 0 05-18 00:00: 00 No 10mg [facility] Depo Medrol (40mg) Depo Medrol (40mg) 05-18 00:00: 00 No 40mg [facility] LIDOCAINE HCL 10MG/ML LIDOCAINE HCL 10MG/ML 0 3-14 00:00: 00 No 10mg [facility] Depo Medrol (40mg) Depo Medrol (40mg) 0 3-14 00:00: 00 No 40mg [facility] LIDOCAINE HCL 10MG/ML LIDOCAINE HCL 10MG/ML 0 14 00:00: 00 No 10mg [facility] Depo Medrol (40mg) Depo Medrol (40mg) 0 14 00:00: 00 No 40mg [facility] LIDOCAINE HCL 10MG/ML LIDOCAINE HCL 10MG/ML 0 14 00:00: 00 No 10mg [facility] Depo Medrol (40mg) Depo Medrol (40mg) 0 14 00:00: 00 No 40mg [facility] LIDOCAINE HCL 10MG/ML LIDOCAINE HCL 10MG/ML 0 14 00:00: 00 No 10mg [facility] Depo Medrol (40mg) Depo Medrol (40mg) 0 14 00:00: 00 No 40mg [facility] LIDOCAINE HCL 10MG/ML LIDOCAINE HCL 10MG/ML 0 14 00:00: 00 No 10mg [facility] Depo Medrol (40mg) Depo Medrol (40mg) 0 14 00:00: 00 No 40mg [facility] LIDOCAINE HCL 10MG/ML LIDOCAINE HCL 10MG/ML 0 14 00:00: 00 No 10mg [facility] Depo Medrol (40mg) Depo Medrol (40mg) 0 3-14 00:00: 00 No 40mg [facility] LIDOCAINE HCL 10MG/ML LIDOCAINE HCL 10MG/ML 0 314 00:00: 00 No 10mg [facility] Depo Medrol (40mg) Depo Medrol (40mg) 05-18 00:00: 00 No 40mg [facility] LIDOCAINE HCL 10MG/ML LIDOCAINE HCL 10MG/ML 05-18 00:00: 00 No 10mg [facility] Depo Medrol (40mg) Depo Medrol (40mg) 05-18 00:00: 00 No 40mg [facility] LIDOCAINE HCL 10MG/ML LIDOCAINE HCL 10MG/ML 05-18 00:00: 00 No 10mg [facility] Depo Medrol (40mg) Depo Medrol (40mg) 05-18 00:00: 00 No 40mg [facility] LIDOCAINE HCL 10MG/ML LIDOCAINE HCL 10MG/ML 05-18 00:00: 00 No 10mg [facility] Depo Medrol (40mg) Depo Medrol (40mg) 05-18 00:00: 00 No 40mg [facility] LIDOCAINE HCL 10MG/ML LIDOCAINE HCL 10MG/ML 05-18 00:00: 00 No 10mg [facility] Depo Medrol (40mg) Depo Medrol (40mg) 05-18 00:00: 00 No 40mg [facility] LIDOCAINE HCL 10MG/ML LIDOCAINE HCL 10MG/ML 05-18 00:00: 00 No 10mg [facility] Depo Medrol (40mg) Depo Medrol (40mg) 05-18 00:00: 00 No 40mg [facility] LIDOCAINE HCL 10MG/ML LIDOCAINE HCL 10MG/ML 05-18 00:00: 00 No 10mg [facility] Aspirin 81 81 MG Aspirin 81 81 MG No 1{table t} QD Aspirin 81 81 MG metFORMIN HCl ER 500 MG metFORMIN HCl ER 500 MG No metFORMIN HCl ER 500 MG Metoprolol Tartrate 25 MG Metoprolol Tartrate 25 MG No Metoprolol Tartrate 25 MG Atorvastati n Calcium 80 MG Atorvastati n Calcium 80 MG No Atorvastat in Calcium 80 MG metFORMIN HCl ER 500 MG metFORMIN HCl ER 500 MG No 1{table t_with_ evening _meal} QD metFORMIN HCl ER 500 MG Co Q 10 100 MG Co Q 10 100 MG No Co Q 10 100 MG Glucosamine 500 MG Glucosamine 500 MG No 1{capsu le_with _a_meal } Glucosamin e 500 MG Aspirin 81 81 MG Aspirin 81 81 MG No 1{table t} QD Aspirin 81 81 MG Co Q 10 100 MG Co Q 10 100 MG No Co Q 10 100 MG Glucosamine 500 MG Glucosamine 500 MG No 1{capsu le_with _a_meal } Glucosamin e 500 MG Atorvastati n Calcium 80 MG Atorvastati n Calcium 80 MG No Atorvastat in Calcium 80 MG Metoprolol Tartrate 25 MG Metoprolol Tartrate 25 MG No Metoprolol Tartrate 25 MG metFORMIN HCl ER 500 MG metFORMIN HCl ER 500 MG No 1{table t_with_ evening _meal} QD metFORMIN HCl ER 500 MG Aspirin 81 81 MG Aspirin 81 81 MG No 1{table t} QD Aspirin 81 81 MG Co Q 10 100 MG Co Q 10 100 MG No Co Q 10 100 MG Glucosamine 500 MG Glucosamine 500 MG No 1{capsu le_with _a_meal } Glucosamin e 500 MG Atorvastati n Calcium 80 MG Atorvastati n Calcium 80 MG No Atorvastat in Calcium 80 MG Metoprolol Tartrate 25 MG Metoprolol Tartrate 25 MG No Metoprolol Tartrate 25 MG metFORMIN HCl ER 500 MG metFORMIN HCl ER 500 MG No 1{table t_with_ evening _meal} QD metFORMIN HCl ER 500 MG Glucosamine 500 MG Glucosamine 500 MG No 1{capsu le_with _a_meal } Glucosamin e 500 MG Co Q 10 100 MG Co Q 10 100 MG No Co Q 10 100 MG Aspirin 81 81 MG Aspirin 81 81 MG No 1{table t} QD Aspirin 81 81 MG Atorvastati n Calcium 80 MG Atorvastati n Calcium 80 MG No Atorvastat in Calcium 80 MG metFORMIN HCl ER 500 MG metFORMIN HCl ER 500 MG No 1{table t_with_ evening _meal} QD metFORMIN HCl ER 500 MG Metoprolol Tartrate 25 MG Metoprolol Tartrate 25 MG No Metoprolol Tartrate 25 MG Glucosamine 500 MG Glucosamine 500 MG No 1{capsu le_with _a_meal } Glucosamin e 500 MG Co Q 10 100 MG Co Q 10 100 MG No Co Q 10 100 MG Aspirin 81 81 MG Aspirin 81 81 MG No 1{table t} QD Aspirin 81 81 MG Atorvastati n Calcium 80 MG Atorvastati n Calcium 80 MG No Atorvastat in Calcium 80 MG metFORMIN HCl ER 500 MG metFORMIN HCl ER 500 MG No 1{table t_with_ evening _meal} QD metFORMIN HCl ER 500 MG Metoprolol Tartrate 25 MG Metoprolol Tartrate 25 MG No Metoprolol Tartrate 25 MG Glucosamine 500 MG Glucosamine 500 MG No 1{capsu le_with _a_meal } Glucosamin e 500 MG Co Q 10 100 MG Co Q 10 100 MG No Co Q 10 100 MG Aspirin 81 81 MG Aspirin 81 81 MG No 1{table t} QD Aspirin 81 81 MG metFORMIN HCl ER 500 MG metFORMIN HCl ER 500 MG No 1{table t_with_ evening _meal} QD metFORMIN HCl ER 500 MG Atorvastati n Calcium 80 MG Atorvastati n Calcium 80 MG No Atorvastat in Calcium 80 MG Metoprolol Tartrate 25 MG Metoprolol Tartrate 25 MG No Metoprolol Tartrate 25 MG metFORMIN HCl ER 500 MG metFORMIN HCl ER 500 MG No 1{table t_with_ evening _meal} QD metFORMIN HCl ER 500 MG Metoprolol Tartrate 25 MG Metoprolol Tartrate 25 MG No Metoprolol Tartrate 25 MG Glucosamine 500 MG Glucosamine 500 MG No 1{capsu le_with _a_meal } Glucosamin e 500 MG Aspirin 81 81 MG Aspirin 81 81 MG No 1{table t} QD Aspirin 81 81 MG Atorvastati n Calcium 80 MG Atorvastati n Calcium 80 MG No Atorvastat in Calcium 80 MG Co Q 10 100 MG Co Q 10 100 MG No Co Q 10 100 MG Glucosamine 500 MG Glucosamine 500 MG No 1{capsu le_with _a_meal } Glucosamin e 500 MG Aspirin 81 81 MG Aspirin 81 81 MG No 1{table t} QD Aspirin 81 81 MG Metoprolol Tartrate 25 MG Metoprolol Tartrate 25 MG No Metoprolol Tartrate 25 MG Co Q 10 100 MG Co Q 10 100 MG No Co Q 10 100 MG Atorvastati n Calcium 80 MG Atorvastati n Calcium 80 MG No Atorvastat in Calcium 80 MG metFORMIN HCl ER 500 MG metFORMIN HCl ER 500 MG No metFORMIN HCl ER 500 MG Glucosamine 500 MG Glucosamine 500 MG No 1{capsu le_with _a_meal } Glucosamin e 500 MG Atorvastati n Calcium 80 MG Atorvastati n Calcium 80 MG No Atorvastat in Calcium 80 MG Aspirin 81 81 MG Aspirin 81 81 MG No 1{table t} QD Aspirin 81 81 MG metFORMIN HCl ER 500 MG metFORMIN HCl ER 500 MG No metFORMIN HCl ER 500 MG Metoprolol Tartrate 25 MG Metoprolol Tartrate 25 MG No Metoprolol Tartrate 25 MG Co Q 10 100 MG Co Q 10 100 MG No Co Q 10 100 MG Glucosamine 500 MG Glucosamine 500 MG No 1{capsu le_with _a_meal } Glucosamin e 500 MG Vitamin D Vitamin D No Vitamin D Atorvastati n Calcium 80 MG Atorvastati n Calcium 80 MG No Atorvastat in Calcium 80 MG Metoprolol Tartrate 25 MG Metoprolol Tartrate 25 MG No Metoprolol Tartrate 25 MG metFORMIN HCl ER 500 MG metFORMIN HCl ER 500 MG No 1{table t_with_ evening _meal} QD metFORMIN HCl ER 500 MG Co Q 10 100 MG Co Q 10 100 MG No Co Q 10 100 MG Aspirin 81 81 MG Aspirin 81 81 MG No 1{table t} QD Aspirin 81 81 MG metFORMIN HCl ER 500 MG metFORMIN HCl ER 500 MG No metFORMIN HCl ER 500 MG Co Q 10 100 MG Co Q 10 100 MG No Co Q 10 100 MG Atorvastati n Calcium 80 MG Atorvastati n Calcium 80 MG No Atorvastat in Calcium 80 MG Vitamin D Vitamin D No Vitamin D metFORMIN HCl ER 500 MG metFORMIN HCl ER 500 MG No metFORMIN HCl ER 500 MG Metoprolol Tartrate 25 MG Metoprolol Tartrate 25 MG No Metoprolol Tartrate 25 MG Glucosamine 500 MG Glucosamine 500 MG No 1{capsu le_with _a_meal } Glucosamin e 500 MG Aspirin 81 81 MG Aspirin 81 81 MG No 1{table t} QD Aspirin 81 81 MG Co Q 10 100 MG Co Q 10 100 MG No Co Q 10 100 MG Atorvastati n Calcium 80 MG Atorvastati n Calcium 80 MG No Atorvastat in Calcium 80 MG Vitamin D Vitamin D No Vitamin D metFORMIN HCl ER 500 MG metFORMIN HCl ER 500 MG No metFORMIN HCl ER 500 MG Metoprolol Tartrate 25 MG Metoprolol Tartrate 25 MG No Metoprolol Tartrate 25 MG Glucosamine 500 MG Glucosamine 500 MG No 1{capsu le_with _a_meal } Glucosamin e 500 MG Aspirin 81 81 MG Aspirin 81 81 MG No 1{table t} QD Aspirin 81 81 MG Co Q 10 100 MG Co Q 10 100 MG No Co Q 10 100 MG Atorvastati n Calcium 80 MG Atorvastati n Calcium 80 MG No Atorvastat in Calcium 80 MG Vitamin D Vitamin D No Vitamin D metFORMIN HCl ER 500 MG metFORMIN HCl ER 500 MG No metFORMIN HCl ER 500 MG Metoprolol Tartrate 25 MG Metoprolol Tartrate 25 MG No Metoprolol Tartrate 25 MG Glucosamine 500 MG Glucosamine 500 MG No 1{capsu le_with _a_meal } Glucosamin e 500 MG Aspirin 81 81 MG Aspirin 81 81 MG No 1{table t} QD Aspirin 81 81 MG Co Q 10 100 MG Co Q 10 100 MG No Co Q 10 100 MG Atorvastati n Calcium 80 MG Atorvastati n Calcium 80 MG No Atorvastat in Calcium 80 MG Vitamin D Vitamin D No Vitamin D metFORMIN HCl ER 500 MG metFORMIN HCl ER 500 MG No metFORMIN HCl ER 500 MG Metoprolol Tartrate 25 MG Metoprolol Tartrate 25 MG No Metoprolol Tartrate 25 MG Glucosamine 500 MG Glucosamine 500 MG No 1{capsu le_with _a_meal } Glucosamin e 500 MG Aspirin 81 81 MG Aspirin 81 81 MG No 1{table t} QD Aspirin 81 81 MG Co Q 10 100 MG Co Q 10 100 MG No Co Q 10 100 MG Atorvastati n Calcium 80 MG Atorvastati n Calcium 80 MG No Atorvastat in Calcium 80 MG Vitamin D Vitamin D No Vitamin D metFORMIN HCl ER 500 MG metFORMIN HCl ER 500 MG No metFORMIN HCl ER 500 MG Metoprolol Tartrate 25 MG Metoprolol Tartrate 25 MG No Metoprolol Tartrate 25 MG Glucosamine 500 MG Glucosamine 500 MG No 1{capsu le_with _a_meal } Glucosamin e 500 MG Aspirin 81 81 MG Aspirin 81 81 MG No 1{table t} QD Aspirin 81 81 MG Co Q 10 100 MG Co Q 10 100 MG No Co Q 10 100 MG Atorvastati n Calcium 80 MG Atorvastati n Calcium 80 MG No Atorvastat in Calcium 80 MG Vitamin D Vitamin D No Vitamin D metFORMIN HCl ER 500 MG metFORMIN HCl ER 500 MG No metFORMIN HCl ER 500 MG Metoprolol Tartrate 25 MG Metoprolol Tartrate 25 MG No Metoprolol Tartrate 25 MG Glucosamine 500 MG Glucosamine 500 MG No 1{capsu le_with _a_meal } Glucosamin e 500 MG Aspirin 81 81 MG Aspirin 81 81 MG No 1{table t} QD Aspirin 81 81 MG Aspirin 81 81 MG Aspirin 81 81 MG No 1{table t} QD Aspirin 81 81 MG Co Q 10 100 MG Co Q 10 100 MG No Co Q 10 100 MG Atorvastati n Calcium 80 MG Atorvastati n Calcium 80 MG No Atorvastat in Calcium 80 MG Vitamin D Vitamin D No Vitamin D metFORMIN HCl ER 500 MG metFORMIN HCl ER 500 MG No metFORMIN HCl ER 500 MG Metoprolol Tartrate 25 MG Metoprolol Tartrate 25 MG No Metoprolol Tartrate 25 MG Glucosamine 500 MG Glucosamine 500 MG No 1{capsu le_with _a_meal } Glucosamin e 500 MG Co Q 10 100 MG Co Q 10 100 MG No Co Q 10 100 MG Aspirin 81 81 MG Aspirin 81 81 MG No 1{table t} QD Aspirin 81 81 MG Glucosamine 500 MG Glucosamine 500 MG No 1{capsu le_with _a_meal } Glucosamin e 500 MG Atorvastati n Calcium 80 MG Atorvastati n Calcium 80 MG No Atorvastat in Calcium 80 MG Metoprolol Tartrate 25 MG Metoprolol Tartrate 25 MG No Metoprolol Tartrate 25 MG metFORMIN HCl ER 500 MG metFORMIN HCl ER 500 MG No 1{table t_with_ evening _meal} QD metFORMIN HCl ER 500 MG Atorvastati n Calcium 80 MG Atorvastati n Calcium 80 MG No Atorvastat in Calcium 80 MG metFORMIN HCl ER 500 MG metFORMIN HCl ER 500 MG No 1{table t_with_ evening _meal} QD metFORMIN HCl ER 500 MG Aspirin 81 81 MG Aspirin 81 81 MG No 1{table t} QD Aspirin 81 81 MG Glucosamine 500 MG Glucosamine 500 MG No 1{capsu le_with _a_meal } Glucosamin e 500 MG Metoprolol Tartrate 25 MG Metoprolol Tartrate 25 MG No Metoprolol Tartrate 25 MG Co Q 10 100 MG Co Q 10 100 MG No Co Q 10 100 MG traMADol HCl 50 MG traMADol HCl 50 MG No traMADol HCl 50 MG Atorvastati n Calcium 80 MG Atorvastati n Calcium 80 MG No Atorvastat in Calcium 80 MG metFORMIN HCl ER 500 MG metFORMIN HCl ER 500 MG No 1{table t_with_ evening _meal} QD metFORMIN HCl ER 500 MG Aspirin 81 81 MG Aspirin 81 81 MG No 1{table t} QD Aspirin 81 81 MG Glucosamine 500 MG Glucosamine 500 MG No 1{capsu le_with _a_meal } Glucosamin e 500 MG Metoprolol Tartrate 25 MG Metoprolol Tartrate 25 MG No Metoprolol Tartrate 25 MG Co Q 10 100 MG Co Q 10 100 MG No Co Q 10 100 MG traMADol HCl 50 MG traMADol HCl 50 MG No traMADol HCl 50 MG Glucosamine 500 MG Glucosamine 500 MG No 1{capsu le_with _a_meal } Glucosamin e 500 MG Co Q 10 100 MG Co Q 10 100 MG No Co Q 10 100 MG Aspirin 81 81 MG Aspirin 81 81 MG No 1{table t} QD Aspirin 81 81 MG Metoprolol Tartrate 25 MG Metoprolol Tartrate 25 MG No Metoprolol Tartrate 25 MG Atorvastati n Calcium 80 MG Atorvastati n Calcium 80 MG No Atorvastat in Calcium 80 MG metFORMIN HCl ER 500 MG metFORMIN HCl ER 500 MG No 1{table t_with_ evening _meal} QD metFORMIN HCl ER 500 MG Immunizations Ordered Immunization Name Filled Immunization Name Date Status Comments Source Moderna COVID-19 Vaccine, Bivalent Moderna COVID-19 Vaccine, Bivalent 2021-12-11 17:25:00 Completed [facility] Moderna COVID-19 Vaccine, Bivalent Moderna COVID-19 Vaccine, Bivalent 2021-12-11 17:25:00 Completed [facility] Moderna COVID-19 Vaccine, Bivalent Moderna COVID-19 Vaccine, Bivalent 2021-12-11 17:25:00 Completed [facility] Moderna COVID-19 Vaccine, Bivalent Moderna COVID-19 Vaccine, Bivalent 2021-12-11 17:25:00 Completed [facility] Moderna COVID-19 Vaccine, Bivalent Moderna COVID-19 Vaccine, Bivalent 2021-12-11 17:25:00 Completed [facility] Moderna COVID-19 Vaccine, Bivalent Moderna COVID-19 Vaccine, Bivalent 2021-12-11 17:25:00 Completed [facility] Moderna COVID-19 Vaccine, Bivalent Moderna COVID-19 Vaccine, Bivalent 2021-12-11 17:25:00 Completed [facility] FLUZONE HIGH DOSE OVER 65 FLUZONE HIGH DOSE OVER 65 2021-11-29 17:25:00 Completed [facility] FLUZONE HIGH DOSE OVER 65 FLUZONE HIGH DOSE OVER 65 2021-11-29 17:25:00 Completed [facility] FLUZONE HIGH DOSE OVER 65 FLUZONE HIGH DOSE OVER 65 2021-11-29 17:25:00 Completed [facility] FLUZONE HIGH DOSE OVER 65 FLUZONE HIGH DOSE OVER 65 2021-11-29 17:25:00 Completed [facility] FLUZONE HIGH DOSE OVER 65 FLUZONE HIGH DOSE OVER 65 2021-11-29 17:25:00 Completed [facility] FLUZONE HIGH DOSE OVER 65 FLUZONE HIGH DOSE OVER 65 2021-11-29 17:25:00 Completed [facility] FLUZONE HIGH DOSE OVER 65 FLUZONE HIGH DOSE OVER 65 2021-11-29 17:25:00 Completed [facility] LIDOCAINE HCL 10MG/ML LIDOCAINE HCL 10MG/ML 2018-05-18 09:28:00 Completed [facility] Depo Medrol (40mg) Depo Medrol (40mg) 2018-05-18 09:27:00 Completed [facility] Moderna COVID-19 Vaccine, Bivalent Moderna COVID-19 Vaccine, Bivalent Unknown Completed [facility] FLUZONE HIGH DOSE OVER 65 FLUZONE HIGH DOSE OVER 65 Unknown Completed [facility] Moderna COVID-19 Vaccine, Bivalent Moderna COVID-19 Vaccine, Bivalent Unknown Completed [facility] FLUZONE HIGH DOSE OVER 65 FLUZONE HIGH DOSE OVER 65 Unknown Completed [facility] Moderna COVID-19 Vaccine, Bivalent Moderna COVID-19 Vaccine, Bivalent Unknown Completed [facility] FLUZONE HIGH DOSE OVER 65 FLUZONE HIGH DOSE OVER 65 Unknown Completed [facility] Moderna COVID-19 Vaccine, Bivalent Moderna COVID-19 Vaccine, Bivalent Unknown Completed [facility] FLUZONE HIGH DOSE OVER 65 FLUZONE HIGH DOSE OVER 65 Unknown Completed [facility] Moderna COVID-19 Vaccine, Bivalent Moderna COVID-19 Vaccine, Bivalent Unknown Completed [facility] FLUZONE HIGH DOSE OVER 65 FLUZONE HIGH DOSE OVER 65 Unknown Completed [facility] Moderna COVID-19 Vaccine, Bivalent Moderna COVID-19 Vaccine, Bivalent Unknown Completed [facility] FLUZONE HIGH DOSE OVER 65 FLUZONE HIGH DOSE OVER 65 Unknown Completed [facility] Moderna COVID-19 Vaccine, Bivalent Moderna COVID-19 Vaccine, Bivalent Unknown Completed [facility] FLUZONE HIGH DOSE OVER 65 FLUZONE HIGH DOSE OVER 65 Unknown Completed [facility] Vital Signs Vital Name Observation Time Observation Value Comments S ource height 2022-11-18 08:30:00 65.50 [in_i] Com [facility] weight 2022-11-18 08:30:00 173.6 [lb_av] Co mmon [facility] temperature 2022-11-18 08:30:00 97.9 [degF] Com [facility] bmi 2022-11-18 08:30:00 28.45 kg/m2 Comm on [facility] oximetry 2022-11-18 08:30:00 97 % Commo n [facility] respiratory rate 2022-11-18 08:30:00 17 /min [facility] blood pressure systolic 2022-11-18 08:30:00 137 mm[Hg] [facility] blood pressure diastolic 2022-11-18 08:30:00 68 mm[Hg] [facility] height 2022-11-18 08:40:00 65.50 [in_i] Com [facility] weight 2022-11-18 08:40:00 173.6 [lb_av] Co [facility] temperature 2022-11-18 08:40:00 97.9 [degF] Com [facility] bmi 2022-11-18 08:40:00 28.45 kg/m2 Comm on [facility] oximetry 2022-11-18 08:40:00 97 % Commo n [facility] respiratory rate 2022-11-18 08:40:00 17 /min [facility] blood pressure systolic 2022-11-18 08:40:00 137 mm[Hg] Common [facility] blood pressure diastolic 2022-11-18 08:40:00 68 mm[Hg] [facility] height 2022-08-18 11:20:00 65.50 [in_i] Com [facility] weight 2022-08-18 11:20:00 173.6 [lb_av] Co [facility] temperature 2022-08-18 11:20:00 98.1 [degF] Com [facility] bmi 2022-08-18 11:20:00 28.45 kg/m2 Comm on [facility] oximetry 2022-08-18 11:20:00 98 % Commo n [facility] respiratory rate 2022-08-18 11:20:00 18 /min Common [facility] blood pressure systolic 2022-08-18 11:20:00 140 mm[Hg] Common [facility] blood pressure diastolic 2022-08-18 11:20:00 64 mm[Hg] Common [facility] height 2022-05-10 13:30:00 65.50 [in_i] Com [facility] weight 2022-05-10 13:30:00 171.0 [lb_av] Co mmon [facility] temperature 2022-05-10 13:30:00 97.0 [degF] Com [facility] bmi 2022-05-10 13:30:00 28.02 kg/m2 Comm on [facility] oximetry 2022-05-10 13:30:00 98 % Commo n [facility] respiratory rate 2022-05-10 13:30:00 17 /min Common [facility] blood pressure systolic 2022-05-10 13:30:00 138 mm[Hg] Common [facility] blood pressure diastolic 2022-05-10 13:30:00 67 mm[Hg] [facility] height 2022-03-10 09:15:00 65.50 [in_i] Com [facility] weight 2022-03-10 09:15:00 174 [lb_av] Comm on [facility] temperature 2022-03-10 09:15:00 98.4 [degF] Com [facility] bmi 2022-03-10 09:15:00 28.51 kg/m2 Comm on [facility] blood pressure systolic 2022-03-10 09:15:00 134 mm[Hg] Common [facility] blood pressure diastolic 2022-03-10 09:15:00 78 mm[Hg] Common [facility] height 2022-02-24 10:00:00 65.50 [in_i] Com [facility] weight 2022-02-24 10:00:00 172 [lb_av] Comm on [facility] temperature 2022-02-24 10:00:00 98.5 [degF] Com [facility] bmi 2022-02-24 10:00:00 28.18 kg/m2 Comm on [facility] blood pressure systolic 2022-02-24 10:00:00 128 mm[Hg] [facility] blood pressure diastolic 2022-02-24 10:00:00 81 mm[Hg] Common [facility] height 2022-02-10 09:00:00 65.50 [in_i] Com [facility] weight 2022-02-10 09:00:00 172 [lb_av] Comm on [facility] temperature 2022-02-10 09:00:00 98.6 [degF] Com [facility] bmi 2022-02-10 09:00:00 28.18 kg/m2 Comm on [facility] blood pressure systolic 2022-02-10 09:00:00 132 mm[Hg] Common [facility] blood pressure diastolic 2022-02-10 09:00:00 70 mm[Hg] Common [facility] height 2022-01-21 10:30:00 65.50 [in_i] Com [facility] weight 2022-01-21 10:30:00 172.2 [lb_av] Co [facility] temperature 2022-01-21 10:30:00 97.6 [degF] Com [facility] bmi 2022-01-21 10:30:00 28.22 kg/m2 Comm on [facility] blood pressure systolic 2022-01-21 10:30:00 130 mm[Hg] Common [facility] blood pressure diastolic 2022-01-21 10:30:00 62 mm[Hg] Common [facility] height 2021-11-19 10:20:00 65.50 [in_i] Com [facility] weight 2021-11-19 10:20:00 172.2 [lb_av] Co [facility] temperature 2021-11-19 10:20:00 97.3 [degF] Com [facility] bmi 2021-11-19 10:20:00 28.22 kg/m2 Comm on [facility] oximetry 2021-11-19 10:20:00 98 % Commo n [facility] respiratory rate 2021-11-19 10:20:00 16 /min Common [facility] blood pressure systolic 2021-11-19 10:20:00 130 mm[Hg] Common [facility] blood pressure diastolic 2021-11-19 10:20:00 62 mm[Hg] [facility] height 2021-11-19 10:20:00 65.50 [in_i] Com [facility] weight 2021-11-19 10:20:00 172.2 [lb_av] Co mmon [facility] temperature 2021-11-19 10:20:00 97.3 [degF] Com [facility] bmi 2021-11-19 10:20:00 28.22 kg/m2 Comm on [facility] oximetry 2021-11-19 10:20:00 98 % Commo n [facility] respiratory rate 2021-11-19 10:20:00 16 /min Common [facility] blood pressure systolic 2021-11-19 10:20:00 130 mm[Hg] [facility] blood pressure diastolic 2021-11-19 10:20:00 62 mm[Hg] Common [facility] height 2021-09-24 08:20:00 65.50 [in_i] Com [facility] weight 2021-09-24 08:20:00 172.4 [lb_av] Co mmon [facility] temperature 2021-09-24 08:20:00 97.2 [degF] Com [facility] bmi 2021-09-24 08:20:00 28.25 kg/m2 Comm on [facility] oximetry 2021-09-24 08:20:00 98 % Commo n [facility] respiratory rate 2021-09-24 08:20:00 16 /min Common [facility] blood pressure systolic 2021-09-24 08:20:00 136 mm[Hg] Common [facility] blood pressure diastolic 2021-09-24 08:20:00 72 mm[Hg] Common [facility] height 2021-03-26 08:20:00 68 [in_i] Commo n [facility] weight 2021-03-26 08:20:00 172 [lb_av] Comm on [facility] temperature 2021-03-26 08:20:00 96.4 [degF] Com mon [facility] bmi 2021-03-26 08:20:00 26.15 kg/m2 Comm on [facility] oximetry 2021-03-26 08:20:00 99 % Commo n [facility] respiratory rate 2021-03-26 08:20:00 24 /min [facility] blood pressure systolic 2021-03-26 08:20:00 138 mm[Hg] [facility] blood pressure diastolic 2021-03-26 08:20:00 78 mm[Hg] Common [facility] height 2020-07-15 15:20:00 68 [in_i] Commo n [facility] weight 2020-07-15 15:20:00 176.0 [lb_av] Co mmon [facility] temperature 2020-07-15 15:20:00 97.3 [degF] Com mon [facility] bmi 2020-07-15 15:20:00 26.76 kg/m2 Comm on [facility] oximetry 2020-07-15 15:20:00 97 % Commo n [facility] respiratory rate 2020-07-15 15:20:00 16 /min [facility] blood pressure systolic 2020-07-15 15:20:00 156 mm[Hg] Common [facility] blood pressure diastolic 2020-07-15 15:20:00 74 mm[Hg] [facility] Encounters Start Date/Time End Date/Time Encounter Type Admission Type Attending Clinicians Care Facility Care Department Encounter ID Source 2022-11-16 08:03:00 Outpatient Tl Griffiths STLMLC STLMLC [id number] [facility] 2022-08-10 11:24:00 Outpatient Tl Griffiths STLMLC STLMLC [id number] [facility] 2022-01-21 08:39:01 Outpatient Belle Luna STLMLC STLMLC [id number] [facility] 2021-11-17 10:22:02 Outpatient Belle Luna STSUKHJINDERLC STLMLC [id number] [facility] 2021-09-22 13:16:01 Outpatient Belle Luna STLMLC STLMLC [id number] [facility] 2021-04-01 14:37:38 Outpatient Belle Luna STLMLC STLMLC [id number] [facility] 2021-04-01 13:27:39 Outpatient Belle Luna STLMLC STLMLC [id number] [facility] 2021-04-01 13:05:35 Outpatient Belle Luna STLMLC STLMLC [id number] [facility] 2021-04-01 13:04:59 Outpatient Belle Luna STLMLC STLMLC [id number] [facility] 2022-11-18 00:00:00 2022-11-18 00:00:00 OFFICE VISIT ESTAB PT LEVEL 4 STLMLC STLC [id number] [facility] 2022-11-18 00:00:00 2022-11-18 00:00:00 SUB ANNUAL [facility] [id number] [facility] 2022-09-28 00:00:00 2022-09-28 00:00:00 (TEL) STLMLC STLMLC [id number] [facility] 2022-09-27 00:00:00 2022-09-27 00:00:00 (TEL) STLMLC STLMLC [id number] [facility] 2022-08-18 00:00:00 2022-08-18 00:00:00 OFFICE VISIT ESTAB PT LEVEL 4 STLMLC STLMLC [id number] [facility] 2022-08-10 00:00:00 2022-08-10 00:00:00 (TEL) STLMLC STLMLC [id number] [facility] 2022-05-10 00:00:00 2022-05-10 00:00:00 OFFICE VISIT ESTAB PT LEVEL 4 STLMLC STLMLC [id number] [facility] 2022-03-10 00:00:00 2022-03-10 00:00:00 NON-BILLAB LE VISIT STLMLC STLMLC [id number] [facility] 2022-02-24 00:00:00 2022-02-24 00:00:00 NON-BILLAB LE VISIT STLMLC STLMLC [id number] [facility] 2022-02-10 00:00:00 2022-02-10 00:00:00 NON-BILLAB LE VISIT STLMLC STLMLC [id number] [facility] 2022-02-04 00:00:00 2022-02-04 00:00:00 (TEL) STLMLC STLMLC [id number] [facility] 2022-01-25 00:00:00 2022-01-25 00:00:00 (TEL) STLMLC STLMLC [id number] [facility] 2022-01-21 00:00:00 2022-01-21 00:00:00 OFFICE VISIT NEW PT LEVEL 3 STLMLC STLMLC [id number] [facility] 2021-11-19 00:00:00 2021-11-19 00:00:00 SUB ANNUAL MCR WELLNESS VISIT STLMLC STLMLC [id number] [facility] 2021-11-19 00:00:00 2021-11-19 00:00:00 NO CHARGE STLMLC STLMLC [id number] [facility] 2021-09-24 00:00:00 2021-09-24 00:00:00 OFFICE VISIT ESTAB PT LEVEL 4 STLMLC STLMLC [id number] [facility] 2021-03-26 00:00:00 2021-03-26 00:00:00 OFFICE VISIT ESTAB PT LEVEL 4 STLMLC STLMLC [id number] [facility] 2021-02-23 00:00:00 2021-02-23 00:00:00 (TEL) STLMLC STLMLC [id number] [facility] 2020-12-22 00:00:00 2020-12-22 00:00:00 (TEL) STLMLC STLMLC [id number] [facility] 2020-09-23 00:00:00 2020-09-23 00:00:00 Outpatient STLMLC STLMLC [id number] [facility] 2020-09-23 00:00:00 2020-09-23 00:00:00 Outpatient STLMLC STLMLC [id number] [facility] 2020-09-23 00:00:00 2020-09-23 00:00:00 Outpatient STLMLC STLMLC [id number] [facility] 2020-07-15 00:00:00 2020-07-15 00:00:00 OFFICE VISIT NEW PT LEVEL 4 STLMLC STLMLC [id number] [facility] Results Test Description Test Time Test Comments Results Result Co mments Source HEMOGLOBIN [id number] 00:00:00* Test Item Value Reference Range Interpretation Comme nts HEMOGLOBIN A1c (test code = 4548-4) 6.7 % See_Comment H [[facility]] The system which generated this result transmitted reference range: 4.2-5.6 %. The reference range was not used to interpret this result as normal/abnormal. VITAMIN D, 25 [id number] 00:00:00* Test Item Value Reference Range Interpretation Comme nts VITAMIN D, 25 OH (test code = 1988-3) 51 NG/ML SEE BELOW NG/ML LIPID PANEL WITH REFLEX DIRECT [id number] 00:00:00* Test Item Value Reference Range Interpretation Comme nts CALC LDL CHOL (test code = 90328-8) 58 MG/DL See_Comment [[facility]] The system which generated this result transmitted reference range: <100 MG/DL. The reference range was not used to interpret this result as normal/abnormal. CHOLESTEROL (test code = 2093-3) 131 MG/DL See_Comment [[facility]] The system which generated this result transmitted reference range: <200 MG/DL. The reference range was not used to interpret this result as normal/abnormal. HDL CHOLESTEROL (test code = 2085-9) 60 MG/DL See_Comment [[facility]] The system which generated this result transmitted reference range: >39 MG/DL. The reference range was not used to interpret this result as normal/abnormal. RISK RATIO LDL/HDL (test code = 70872-4) 0.97 RATIO See_Comment [Automated message] The system which generated this result transmitted reference range: <3.55 RATIO. The reference range was not used to interpret this result as normal/abnormal. TRIGLYCERIDES (test code = 2571-8) 45 MG/DL See_Comment [[facility]] The system which generated this result transmitted reference range: <150 MG/DL. The reference range was not used to interpret this result as normal/abnormal. ALBUMIN/CREATININE RATIO, RANDOM [id number] 00:00:00* Test Item Value Reference Range Interpretation Comme nts ALBUMIN, URINE, RANDOM (test code = 43704-6) 1.4 MG/DL NOT ESTAB MG/DL CALC ALBUMIN/CREAT, RND (test code = 53677-5) 12 MG/G See_Comment [[facility]] The system which generated this result transmitted reference range: <30 MG/G. The reference range was not used to interpret this result as normal/abnormal. CREATININE, URINE, CONC. (test code = 2161-8) 112.4 MG/DL NOT ESTAB MG/DL COMPREHENSIVE METABOLIC [id number] 00:00:00* Test Item Value Reference Range Interpretation Comme nts ALBUMIN (test code = 1751-7) 4.6 G/DL See_Comment [Automated messa ge] The system which generated this result transmitted reference range: 3.5-5.2 G/DL. The reference range was not used to interpret this result as normal/abnormal. ALKALINE PHOSPHATASE (test code = 6768-6) 95 U/L See_Comment [Automated message] The system which generated this result transmitted reference range: 40-125 U/L. The reference range was not used to interpret this result as normal/abnormal. BILIRUBIN, TOTAL (test code = 1975-2) 0.3 MG/DL See_Comment [Automated message] The system which generated this result transmitted reference range: <=1.2 MG/DL. The reference range was not used to interpret this result as normal/abnormal. BUN (test code = 3094-0) 28 MG/DL See_Comment H [Automated messa ge] The system which generated this result transmitted reference range: 8-23 MG/DL. The reference range was not used to interpret this result as normal/abnormal. CALCIUM (test code = 34065-1) 9.9 MG/DL See_Comment [Automated messa ge] The system which generated this result transmitted reference range: 8.5-10.5 MG/DL. The reference range was not used to interpret this result as normal/abnormal. CALC A/G RATIO (test code = 1759-0) 1.8 RATIO See_Comment [Automated messa ge] The system which generated this result transmitted reference range: 1.0-2.6 RATIO. The reference range was not used to interpret this result as normal/abnormal. CALC BUN/CREAT (test code = 3097-3) 32 RATIO See_Comment H [Automated messa ge] The system which generated this result transmitted reference range: 6-28 RATIO. The reference range was not used to interpret this result as normal/abnormal. CALC GLOBULIN (test code = 21639-4) 2.6 G/DL See_Comment [Automated messa ge] The system which generated this result transmitted reference range: 1.9-3.7 G/DL. The reference range was not used to interpret this result as normal/abnormal. CARBON DIOXIDE (test code = 1963-8) 27 MEQ/L See_Comment [Automated messa ge] The system which generated this result transmitted reference range: 19-31 MEQ/L. The reference range was not used to interpret this result as normal/abnormal. CHLORIDE (test code = 2075-0) 106 MEQ/L See_Comment [Automated messa ge] The system which generated this result transmitted reference range: 95-107 MEQ/L. The reference range was not used to interpret this result as normal/abnormal. CREATININE (test code = 2160-0) 0.88 MG/DL See_Comment [Automated messa ge] The system which generated this result transmitted reference range: 0.80-1.40 MG/DL. The reference range was not used to interpret this result as normal/abnormal. eGFR (2020 CKD-EPI) (test code = 03181-0) 87 ML/MIN/1.73 See_Comment [Automated messa ge] The system which generated this result transmitted reference range: >60 ML/MIN/1.73. The reference range was not used to interpret this result as normal/abnormal. GLUCOSE (test code = 1558-6) 102 MG/DL See_Comment H [Automated messa ge] The system which generated this result transmitted reference range: 70-99 MG/DL. The reference range was not used to interpret this result as normal/abnormal. POTASSIUM (test code = 2823-3) 4.6 MEQ/L See_Comment [Automated messa ge] The system which generated this result transmitted reference range: 3.5-5.4 MEQ/L. The reference range was not used to interpret this result as normal/abnormal. PROTEIN, TOTAL (test code = 2885-2) 7.2 G/DL See_Comment [Automated messa ge] The system which generated this result transmitted reference range: 6.1-8.3 G/DL. The reference range was not used to interpret this result as normal/abnormal. AST (test code = 1920-8) 21 U/L See_Comment [Automated messa ge] The system which generated this result transmitted reference range: 9-50 U/L. The reference range was not used to interpret this result as normal/abnormal. ALT (test code = 1742-6) 18 U/L See_Comment [Automated messa ge] The system which generated this result transmitted reference range: 5-50 U/L. The reference range was not used to interpret this result as normal/abnormal. SODIUM (test code = 2951-2) 143 MEQ/L See_Comment [Automated messa ge] The system which generated this result transmitted reference range: 133-146 MEQ/L. The reference range was not used to interpret this result as normal/abnormal. CBC W/AUTO [id number] 00:00:00* Test Item Value Reference Range Interpretation Comme nts NUCLEATED RBCS (test code = 35938-7) 0.0 /100 WBC'S See_Comment [Automated messa ge] The system which generated this result transmitted reference range: 0.0 /100 WBC'S. The reference range was not used to interpret this result as normal/abnormal. ABSOLUTE EOSINOPHILS (test code = 97384-3) 0.21 K/UL See_Comment [Automated messa ge] The system which generated this result transmitted reference range: 0.00-0.50 K/UL. The reference range was not used to interpret this result as normal/abnormal. ABSOLUTE LYMPHOCYTES (test code = 15401-7) 1.57 K/UL See_Comment [Automated messa ge] The system which generated this result transmitted reference range: 1.00-4.00 K/UL. The reference range was not used to interpret this result as normal/abnormal. ABSOLUTE MONOCYTES (test code = 22250-5) 0.53 K/UL See_Comment [Automated messa ge] The system which generated this result transmitted reference range: 0.20-1.00 K/UL. The reference range was not used to interpret this result as normal/abnormal. ABSOLUTE NEUTROPHILS (test code = 97189-6) 4.05 K/UL See_Comment [Automated messa ge] The system which generated this result transmitted reference range: 1.50-7.50 K/UL. The reference range was not used to interpret this result as normal/abnormal. BASOPHILS (test code = 55512-0) 0.5 % EOSINOPHILS (test code = 74182-9) 3.3 % HEMATOCRIT (test code = 09331-3) 39.8 % See_Comment L [Automated messa ge] The system which generated this result transmitted reference range: 40.0-51.0 %. The reference range was not used to interpret this result as normal/abnormal. HEMOGLOBIN (test code = 718-7) 13.6 G/DL See_Comment [Automated messa ge] The system which generated this result transmitted reference range: 13.5-17.0 G/DL. The reference range was not used to interpret this result as normal/abnormal. LYMPHOCYTES (test code = 38130-4) 24.4 % MCH (test code = 20815-3) 32.0 PG See_Comment [Automated messa ge] The system which generated this result transmitted reference range: 25.0-33.0 PG. The reference range was not used to interpret this result as normal/abnormal. MCHC (test code = 33541-5) 34.2 G/DL See_Comment [Automated messa ge] The system which generated this result transmitted reference range: 31.0-36.0 G/DL. The reference range was not used to interpret this result as normal/abnormal. MCV (test code = 09240-8) 93.6 fL See_Comment [Automated messa ge] The system which generated this result transmitted reference range: 80.0-99.0 fL. The reference range was not used to interpret this result as normal/abnormal. MONOCYTES (test code = 55879-5) 8.2 % NEUTROPHILS (test code = 40842-9) 62.8 % PLATELET COUNT (test code = 55440-2) 181 K/UL See_Comment [Automated messa ge] The system which generated this result transmitted reference range: 130-400 K/UL. The reference range was not used to interpret this result as normal/abnormal. RBC (test code = 38776-7) 4.25 M/UL See_Comment L [Automated messa ge] The system which generated this result transmitted reference range: 4.50-6.10 M/UL. The reference range was not used to interpret this result as normal/abnormal. RDW (test code = 04662-4) 13.8 % See_Comment [Automated messa ge] The system which generated this result transmitted reference range: 11.5-15.0 %. The reference range was not used to interpret this result as normal/abnormal. WBC (test code = 84492-5) 6.4 K/UL See_Comment [Automated messa ge] The system which generated this result transmitted reference range: 3.5-11.0 K/UL. The reference range was not used to interpret this result as normal/abnormal. HEMOGLOBIN [id number] 00:00:00* Test Item Value Reference Range Interpretation [facility] HEMOGLOBIN A1c (test code = 4548-4) 6.7 % See_Comment H [[facility]] The system which generated this result transmitted reference range: 4.2-5.6 %. The reference range was not used to interpret this result as normal/abnormal. VITAMIN D, 25 [id number] 00:00:00* Test Item Value Reference Range Interpretation [facility] VITAMIN D, 25 OH (test code = 1989-3) 56 NG/ML SEE BELOW NG/ML LIPID PANEL WITH REFLEX DIRECT [id number] 00:00:00* Test Item Value Reference Range Interpretation [facility] CALC LDL CHOL (test code = 36304-1) 65 MG/DL See_Comment [[facility]] The system which generated this result transmitted reference range: <100 MG/DL. The reference range was not used to interpret this result as normal/abnormal. CHOLESTEROL (test code = 2093-3) 138 MG/DL See_Comment [[facility]] The system which generated this result transmitted reference range: <200 MG/DL. The reference range was not used to interpret this result as normal/abnormal. HDL CHOLESTEROL (test code = 2085-9) 60 MG/DL See_Comment [[facility]] The system which generated this result transmitted reference range: >39 MG/DL. The reference range was not used to interpret this result as normal/abnormal. RISK RATIO LDL/HDL (test code = 49709-5) 1.08 RATIO See_Comment [Automated message] The system which generated this result transmitted reference range: <3.55 RATIO. The reference range was not used to interpret this result as normal/abnormal. TRIGLYCERIDES (test code = 2571-8) 53 MG/DL See_Comment [[facility]] The system which generated this result transmitted reference range: <150 MG/DL. The reference range was not used to interpret this result as normal/abnormal. COMPREHENSIVE METABOLIC [id number] 00:00:00* Test Item Value Reference Range Interpretation [facility] ALBUMIN (test code = 1751-7) 4.6 G/DL See_Comment [[facility]] The system which generated this result transmitted reference range: 3.5-5.2 G/DL. The reference range was not used to interpret this result as normal/abnormal. ALKALINE PHOSPHATASE (test code = 6768-6) 114 U/L See_Comment [Automated message] The system which generated this result transmitted reference range: 40-125 U/L. The reference range was not used to interpret this result as normal/abnormal. BILIRUBIN, TOTAL (test code = 1975-2) 0.4 MG/DL See_Comment [Automated message] The system which generated this result transmitted reference range: <=1.2 MG/DL. The reference range was not used to interpret this result as normal/abnormal. BUN (test code = 3094-0) 20 MG/DL See_Comment [Automated messa ge] The system which generated this result transmitted reference range: 8-23 MG/DL. The reference range was not used to interpret this result as normal/abnormal. CALCIUM (test code = 96017-7) 9.6 MG/DL See_Comment [Automated messa ge] The system which generated this result transmitted reference range: 8.5-10.5 MG/DL. The reference range was not used to interpret this result as normal/abnormal. CALC A/G RATIO (test code = 1759-0) 1.5 RATIO See_Comment [Automated messa ge] The system which generated this result transmitted reference range: 1.0-2.6 RATIO. The reference range was not used to interpret this result as normal/abnormal. CALC BUN/CREAT (test code = 3097-3) 23 RATIO See_Comment [Automated messa ge] The system which generated this result transmitted reference range: 6-28 RATIO. The reference range was not used to interpret this result as normal/abnormal. CALC GLOBULIN (test code = 13872-2) 3.0 G/DL See_Comment [Automated messa ge] The system which generated this result transmitted reference range: 1.9-3.7 G/DL. The reference range was not used to interpret this result as normal/abnormal. CARBON DIOXIDE (test code = 1963-8) 28 MEQ/L See_Comment [Automated messa ge] The system which generated this result transmitted reference range: 19-31 MEQ/L. The reference range was not used to interpret this result as normal/abnormal. CHLORIDE (test code = 2075-0) 101 MEQ/L See_Comment [Automated messa ge] The system which generated this result transmitted reference range: 95-107 MEQ/L. The reference range was not used to interpret this result as normal/abnormal. CREATININE (test code = 2160-0) 0.87 MG/DL See_Comment [Automated messa ge] The system which generated this result transmitted reference range: 0.80-1.40 MG/DL. The reference range was not used to interpret this result as normal/abnormal. eGFR (2020 CKD-EPI) (test code = 04656-7) 87 ML/MIN/1.73 See_Comment [Automated messa ge] The system which generated this result transmitted reference range: >60 ML/MIN/1.73. The reference range was not used to interpret this result as normal/abnormal. GLUCOSE (test code = 1558-6) 118 MG/DL See_Comment H [Automated messa ge] The system which generated this result transmitted reference range: 70-99 MG/DL. The reference range was not used to interpret this result as normal/abnormal. POTASSIUM (test code = 2823-3) 4.7 MEQ/L See_Comment [Automated messa ge] The system which generated this result transmitted reference range: 3.5-5.4 MEQ/L. The reference range was not used to interpret this result as normal/abnormal. PROTEIN, TOTAL (test code = 2885-2) 7.6 G/DL See_Comment [Automated messa ge] The system which generated this result transmitted reference range: 6.1-8.3 G/DL. The reference range was not used to interpret this result as normal/abnormal. AST (test code = 1920-8) 20 U/L See_Comment [Automated messa ge] The system which generated this result transmitted reference range: 9-50 U/L. The reference range was not used to interpret this result as normal/abnormal. ALT (test code = 1742-6) 18 U/L See_Comment [Automated messa ge] The system which generated this result transmitted reference range: 5-50 U/L. The reference range was not used to interpret this result as normal/abnormal. SODIUM (test code = 2951-2) 139 MEQ/L See_Comment [Automated messa ge] The system which generated this result transmitted reference range: 133-146 MEQ/L. The reference range was not used to interpret this result as normal/abnormal.
[2023-03-17] MEDS ORDERED: SOTALOL HCL 80 MG TAB ONE (16:04)
[2023-03-17] MEDS ORDERED: MAGNESIUM SULFATE 1 gm IVPB 1 GM/100 ML BAG IV ONE (16:04)
[2023-03-17] MEDS ORDERED: NA CHLORIDE 0.9% 250 ML ONE (16:04)
[2023-03-17 16:36] LABS: Absolute Lymphocytes (CBC) 1.4 K/uL (0.7-4.9); Hematocrit 37.6 % (39.6-49.0); Lymphocytes % 22.3 % (15.3-44.8); MCV 94.2 fL (80-100); MPV 9.4 fL (7.6-11.3); Platelets 159 thou/uL (152-406); RBC Red Blood Cell Count 3.99 M/uL (4.33-5.43)
[2023-03-17 16:38] LABS: Potassium 3.8 mEq/L (3.5-5.1); Troponin High Sensitivity 16.5 pg/mL (<58.9)
--- NOTE | 2023-03-17 16:59 | EDPHYS ---
Physician Documentation [facility] Name: Cordell Patterson Age: 82 yrs Sex: Male : 1940 Arrival Date: 03/17/2023 Time: 15:40 Bed 2 Private MD: ED Physician Chau Berrios HPI: 03/17 16:53 This 82 yrs old Male presents to ER via Ambulatory with complaints of Chest rn Pain. 16:54 The patient presents with a history of heart racing. Context: The symptoms occur at rn rest. Onset: The symptoms/episode began/occurred today. Duration: The patient or guardian reports multiple episodes, that are intermittent. Modifying factors: The symptoms are aggravated by nothing. The symptoms are alleviated by nothing. Severity of symptoms: At their worst the symptoms were moderate in the emergency department the symptoms are unchanged. The patient has not experienced similar symptoms in the past. Patient reports palpitations and chest pain that began today. Is intermittent. No history of arrhythmia in the past. Seen by Dr. Castano recently and scheduled for outpatient cath on April 01. Patient has known CAD with previous CA. Denies any fever or chills. Denies syncope. Used to be on Plavix but had GI bleed and taken off. Currently only takes aspirin. Historical: - Allergies: 15:56 No Known Allergies; ph - PMHx: 15:52 Hyperlipidemia; Hypertension; Coronary atherosclerosis; ph - PSHx: 15:52 heart stent; ph - Immunization history:: Client reports receiving the 2nd dose of the Covid vaccine. - Social history:: Smoking status: Patient reports the use of cigarette tobacco products, denies chronic smoking, but will smoke occasionally. - Family history:: not pertinent. - Hospitalizations: : No recent hospitalization is reported. ROS: 16:54 Constitutional: Negative for fever, chills, and weight loss, Cardiovascular: Positive rn for chest pain and palpitations Respiratory: Positive for shortness of breath Abdomen/GI: Negative for abdominal pain, nausea, vomiting, diarrhea, and constipation, MS/Extremity: Negative for injury and deformity, Skin: Negative for injury, rash, and discoloration, Neuro: Negative for headache, weakness, numbness, tingling, and seizure, Exam: 16:34 ECG was reviewed by the Attending Physician. rn 16:54 Constitutional: This is a well developed, well nourished patient who is awake, alert, rn and in no acute distress. Cardiovascular: Tachycardic, regular. No pulse deficits Respiratory: No increased work of breathing, no retractions or nasal flaring. MS/ Extremity: Pulses equal, no cyanosis. Neurovascular intact. Full, normal range of motion. Equal circumference. Neuro: Awake and alert, GCS 15 Vital Signs: 15:45 Pulse 146; ph 15:51 BP 121 / 75; Pulse 75; Resp 18; Temp 98.1(O); Pulse Ox 98% on R/A; Weight 78.93 kg; ph Height 5 ft. 8 in. ; Pain 1/10; 16:18 BP 146 / 92; Pulse 99; Resp 15; Pulse Ox 99% ; ko1 19:51 BP 111 / 72; Pulse 70; Resp 18 S; Pulse Ox 96% on R/A; as6 15:51 Body Mass Index 26.46 (78.93 kg, 172.72 cm) ph 15:51 Pain Scale: Adult ph MDM: 15:48 Patient medically screened. rn 16:54 Differential diagnosis: arrythmia, dehydration, stress disorder, CAD, acute CA, rn unstable angina. Data reviewed: vital signs, nurses notes. Data reviewed: vital signs, lab test result(s), EKG, and as a result, I will admit patient. Consideration of Admission/Observation Patient was admitted/placed on observation. Escalation of care including admission/observation considered. Management of patient was discussed with the following: Hospitalist: Will evaluate and admit. Care significantly affected by the following chronic conditions: Hypertension, Coronary artery disease. Counseling: I had a detailed discussion with the patient and/or guardian regarding the historical points, exam findings, and any diagnostic results supporting the discharge/admit diagnosis, lab results, the need for further work-up and treatment in the hospital. Response to treatment: the patient's symptoms have markedly improved after treatment, and as a result, I will admit patient. ED course: Current heart rate down to 95 from 146. Patient denies any chest pain or shortness of breath. Patient with ECG showing rate related changes. Will admit to hospitalist service for further care and cardiology consultation.. 16:54 ED course: I personally spent 35 minutes engaged in work directly related to the rn individual patient's care. This does not include any time spent performing procedures. The patient has been deemed critically ill because of atrial flutter with rapid ventricular rate, chest pain, known CAD, requiring rate control and admission for further care.. 03/17 15:56 Order name: Basic Metabolic Panel; Complete Time: 16:39 03/17 15:56 Order name: CBC with Diff; Complete Time: 16:39 03/17 15:56 Order name: NT PRO-BNP; Complete Time: 16:39 03/17 15:56 Order name: Troponin HS; Complete Time: 16:39 03/17 17:54 Order name: Basic Metabolic Panel [facility] 03/17 17:54 Order name: Basic Metabolic Panel [facility] 03/17 17:54 Order name: CBC with Automated Diff [facility] 03/17 17:54 Order name: CBC with Automated Diff [facility] 03/17 17:54 Order name: Lipid Profile [facility] 03/17 17:54 Order name: Lipid Profile [facility] 03/17 17:54 Order name: Troponin High Sensitivity [facility] 03/17 17:54 Order name: Troponin High Sensitivity [facility] 03/17 17:54 Order name: Troponin High Sensitivity [facility] 03/17 15:56 Order name: XRAY Chest (1 view) 03/17 17:54 Order name: Echo with Doppler [facility] 03/17 15:56 Order name: EKG; Complete Time: 15:57 03/17 17:54 Order name: CONS Physician Consult [facility] 03/17 15:56 Order name: Cardiac monitoring; Complete Time: 16:05 03/17 15:56 Order name: EKG - Nurse/Tech; Complete Time: 16:14 03/17 15:56 Order name: IV Saline Lock; Complete Time: 16:14 03/17 15:56 Order name: Labs collected and sent; Complete Time: 16:14 03/17 15:56 Order name: O2 Per Protocol; Complete Time: 16:03 03/17 15:56 Order name: O2 Sat Monitoring; Complete Time: 16:03 rn EC:34 Rate is 146 beats/min. Rhythm is regular. QRS [place] is Normal. QRS interval is normal. rn QT interval is normal. ST Segment is depressed in leads II, III, aVF. Clinical impression: Atrial Flutter. Interpreted by me. Reviewed by me. Administered Medications: 16:01 CANCELLED (Duplicate Order): dtplrpxbma95.5 mg PO once rn 16:14 Drug: Magnesium Sulfate IVPB 1 grams IVPB once over 1 hrs Route: IVPB; Infused Over: 1 ld1 hrs; Site: right antecubital; 20:30 Follow up: Response: No adverse reaction; IV Status: Completed infusion; IV Intake: as6 100ml 16:14 Drug: NS 0.9% IV 250 ml IV at calculated rate once Route: IV; Rate: calculated rate; ld1 Site: right antecubital; 20:30 Follow up: Response: No adverse reaction; IV Status: Completed infusion; IV Intake: as6 250ml 16:14 Drug: Sotalol PO 80 mg PO once Route: PO; ld1 20:30 Follow up: Response: No adverse reaction as6 Disposition Summary: 03/17/23 16:59 Hospitalization Ordered Notes: Hospitalization Status: Inpatient Admission rn Provider: Lakisha Pearson rn Location: Telemetry/[facility] (Inpatient) rn Condition: Stable rn Problem: new rn Symptoms: have improved rn Bed/Room Type: Standard rn Room Assignment: 411(03/17/23 20:02) Diagnosis - Unspecified atrial flutter - with rapid ventricular rate rn - Chest pain, unspecified rn Forms: - Medication Reconciliation Form rn - SBAR form rn - Leadership Thank You Letter rn maternity time excluding procedures: 16:54 Critical care time: Bedside Care: 30 minutes, Consultation: 5 minutes. Total time: 35 rn minutes Signatures: Dispatcher [employer] EDChau Flores MD MD rn Martinez, Eric em1 Montserrat Brown RN RN Virgen Albert RN RN Maranda Slaughter RN RN ld1 Wilbert Oquendo RN as6 Corrections: (The following items were deleted from the chart) 16:01 15:57 Metoprolol PO 12.5 mg PO once ordered. rn rn 18:15 16:59 rn em1 20:02 18:15 410 em1
--- NOTE | 2023-03-17 16:59 | ER ---
Nurse's Notes [facility] Name: Cordell Patterson Age: 82 yrs Sex: Male : 1940 Arrival Date: 03/17/2023 Time: 15:40 Bed 2 Private MD: Diagnosis: Unspecified atrial flutter-with rapid ventricular rate;Chest pain, unspecified Presentation: 03/17 15:51 Chief complaint: Patient states: Chest pain along with left sided jaw pain, onset about ph an hour ago. Chest pain resolved, still having slight jaw pain. Ebola Screen: Patient denies travel to an Ebola-affected area in the 21 days before illness onset. Initial Sepsis Screen: Does the patient meet any 2 criteria? HR > 90 bpm. No. Patient's initial sepsis screen is negative. Does the patient have a suspected source of infection? No. Patient's initial sepsis screen is negative. Risk Assessment: Do you want to hurt yourself or someone else? Patient reports no desire to harm self or others. Onset of symptoms was March 17, 2023 at 15:00. 15:51 Method Of Arrival: Ambulatory ph 15:51 Acuity: [place] 2 ph 15:51 Coronavirus screen: Vaccine status: Patient reports receiving the 2nd dose of the covid ph vaccine. Historical: - Allergies: 15:56 No Known Allergies; ph - PMHx: 15:52 Hyperlipidemia; Hypertension; Coronary atherosclerosis; ph - PSHx: 15:52 heart stent; ph - Immunization history:: Client reports receiving the 2nd dose of the Covid vaccine. - Social history:: Smoking status: Patient reports the use of cigarette tobacco products, denies chronic smoking, but will smoke occasionally. - Family history:: not pertinent. - Hospitalizations: : No recent hospitalization is reported. Screenin:18 [facility] ED Fall Risk Assessment (Adult) History of falling in the last 3 months, ko1 including since admission No falls in past 3 months (0 pts) Confusion or Disorientation No (0 pts) Intoxicated or Sedated No (0 pts) Impaired Gait No (0 pts) Mobility Assist Device Used No (0 pt) Altered Elimination No (0 pt) Score/Fall Risk Level 0 - 2 = Low Risk Oriented to surroundings, Maintained a safe environment, Educated pt \T\ family on fall prevention, incl call for assistance when getting out of bed, Assessed \T\ reinforced patient's understanding of fall precautions, Provided non-skid footwear, Hourly rounding (assess needs \T\ fall precautionary measures) done, Used ambulatory aids as needed (educated on \T\ assisted with), Used gait belt as appropriate. Abuse screen: Denies threats or abuse. Denies injuries from another. Nutritional screening: No deficits noted. Tuberculosis screening: No symptoms or risk factors identified. Assessment: 16:14 Pain: Denies pain. ld1 16:18 General: Appears in no apparent distress. comfortable, Behavior is calm, cooperative, ko1 appropriate for age. Pain: Pain does not radiate. Pain began gradually. Neuro: No deficits noted. Cardiovascular: Rhythm is atrial fibrillation with rapid ventricular response. Respiratory: No deficits noted. GI: No deficits noted. : No deficits noted. EENT: No deficits noted. Derm: No deficits noted. Musculoskeletal: No deficits noted. 19:59 General: attempted to call report . as6 Vital Signs: 15:45 Pulse 146; ph 15:51 BP 121 / 75; Pulse 75; Resp 18; Temp 98.1(O); Pulse Ox 98% on R/A; Weight 78.93 kg; ph Height 5 ft. 8 in. ; Pain 1/10; 16:18 BP 146 / 92; Pulse 99; Resp 15; Pulse Ox 99% ; ko1 19:51 BP 111 / 72; Pulse 70; Resp 18 S; Pulse Ox 96% on R/A; as6 15:51 Body Mass Index 26.46 (78.93 kg, 172.72 cm) ph 15:51 Pain Scale: Adult ph Vitals: 16:18 Cardiac Rhythm Assessment Atrial fibrillation. ko1 ED Course: 15:44 Patient arrived in ED. ae5 15:48 Chau Berrios MD is Attending Physician. rn 15:52 Triage completed. ph 15:53 Arm band placed on right wrist. ph 16:05 Denise Parnell, RICKEY is Primary Nurse. ko1 16:18 Patient has correct armband on for positive identification. Placed in gown. Bed in low ko1 position. Call light in reach. Side rails up X 1. Client placed on continuous cardiac and pulse oximetry monitoring. NIBP monitoring applied. playground monitor on. Door closed. Noise minimized. Lights dimmed. Warm blanket given. Pillow given. 16:18 Inserted saline lock: 20 gauge in right antecubital area, using aseptic technique. ko1 Blood collected. Patient maintains SpO2 saturation greater than 95% on room air. 16:58 Lakisha Pearson MD is Hospitalizing Provider. rn 17:00 XRAY Chest (1 view) In Process Unspecified. EDMS 20:31 Provided Education on: need for admit. as6 20:31 No provider procedures requiring assistance completed. Patient admitted, IV remains in as6 place. Administered Medications: 16:01 CANCELLED (Duplicate Order): jdkjgundwc90.5 mg PO once rn 16:14 Drug: Magnesium Sulfate IVPB 1 grams IVPB once over 1 hrs Route: IVPB; Infused Over: 1 ld1 hrs; Site: right antecubital; 20:30 Follow up: Response: No adverse reaction; IV Status: Completed infusion; IV Intake: as6 100ml 16:14 Drug: NS 0.9% IV 250 ml IV at calculated rate once Route: IV; Rate: calculated rate; ld1 Site: right antecubital; 20:30 Follow up: Response: No adverse reaction; IV Status: Completed infusion; IV Intake: as6 250ml 16:14 Drug: Sotalol PO 80 mg PO once Route: PO; ld1 20:30 Follow up: Response: No adverse reaction as6 Medication: 20:31 VIS not applicable for this client. as6 Intake: 20:30 IV: 100ml; Total: 100ml. as6 20:30 IV: 250ml; Total: 350ml. as6 Outcome: 16:59 Decision to Hospitalize by Provider. rn 20:31 Admitted to Tele accompanied by tech, via stretcher, room 411, with chart, as6 20:31 Condition: stable 20:31 Instructed on the need for admit, 20:31 Patient left the ED. as6 Signatures: Dispatcher [employer] EDMS Chau Berrios MD MD rn Hall, Patricia, RN RN Maranda Pitt RN RN laura1 Wilbert Oquendo RN RN as6 Denise Parnell RN RN ko1 Kelsey Jimenez ae5 Corrections: (The following items were deleted from the chart) 15:56 15:51 BP 121 / 75; Pulse 75bpm; Resp 18bpm; Pulse Ox 98% RA; Temp 98.1F Oral; ph ph
[2023-03-17] MEDS ORDERED: ACETAMINOPHEN 500 MG TAB PO PRN (17:47)
--- NOTE | 2023-03-17 17:55 | P.HP ---
Certification for Inpatient Patient admitted to: Observation With expected LOS: <2 Midnights Patient will require the following post-hospital care: None Practitioner: I am a practitioner with admitting privileges, knowledge of patient current condition, hospital course, and medical plan of care. Services: Services provided to patient in accordance with Admission requirements found in Title 42 Section 412.3 of the Code of Federal Regulations <Lakisha Pearson - Last Filed: 03/17/23 17:54> Patient admitted to: Observation With expected LOS: <2 Midnights Patient will require the following post-hospital care: Home Health Services Practitioner: I am a practitioner with admitting privileges, knowledge of patient current condition, hospital course, and medical plan of care. Services: Services provided to patient in accordance with Admission requirements found in Title 42 Section 412.3 of the Code of Federal Regulations <Bindu Vázquez - Last Filed: 03/18/23 09:24> Patient History Date of Service: 03/17/23 Reason for admission: Aflutter RVR - Past Medical/Surgical History Diabetic: No -: DC -: hydrocele repair - Social History Alcohol use: Yes CD- Drugs: No Caffeine use: Yes <Lakisha Pearson - Last Filed: 03/17/23 17:54> History of Present Illness: 82-year-old male with a past medical history of hypertension, hyperlipidemia, CAD, presents emergency room with chest pain, chest pain started today. Are described as intermittent, nothing makes them better, nothing makes them worse. Reports associated palpitations reports seen Dr. Castano for cardiology scheduled for outpatient cath on April 01. Denies fever, cough, nausea vomiting diarrhea syncope.1 BP 121 / 75; Pulse 75; Resp 18; Temp 98.1(O); Pulse Ox 98% on R/A; Weight 78.93 kg; ph Height 5 ft. 8 in. ; Pain 1/10; EKG 4 Rate is 146 beats/min. Rhythm is regular. QRS [place] is Normal. QRS interval is normal. rn QT interval is normal. ST Segment is depressed in leads II, III, aVF. Clinical impression: Atrial Flutter. treated ER : Magnesium Sulfate IVPB 1 grams IVPB once over 1 hrs Route: IVPB, Sotalol PO 80 mg PO once Route: PO; plan to admit for Unspecified atrial flutter - with rapid ventricular rate rn - Chest pain, unspecified Lab troponin 16.5, 309.3, 110.4, <Bindu Vázquez - Last Filed: 03/18/23 09:24> Allergies No Known Allergies Allergy (Verified 01/25/22 08:33) Home Medications: Atorvastatin Calcium [Lipitor] 80 mg PO DAILY 01/20/14 Glucosamine/Chondroitin Sulf A [Glucosamine Chondroitin Cap] 1 each PO DAILY 01/20/14 Metoprolol Tartrate [Lopressor] 25 mg PO BID 01/20/14 Aspirin [Aspirin EC] 81 mg PO DAILY 03/18/14 Metformin HCl [Glucophage] 500 mg PO DAILY AT SUPPER 01/25/22 Cholecalciferol (Vitamin D3) [Vitamin D 1000 Iu Tab] 4,000 unit PO DAILY 03/17/23 Review of Systems per HPI <Bindu Vázquez - Last Filed: 03/18/23 09:24> Physical Examination - Studies Laboratory Data (last 24 hrs) 03/17/23 03/17/23 16:12 16:12 WBC 6.50 Hgb 13.0 L Hct 37.6 L Plt Count 159 Sodium 139 Potassium 3.8 BUN 26 H Creatinine 1.00 Glucose 119 H <Lakisha Pearson - Last Filed: 03/17/23 17:54> - Physical Exam General: Alert, In no apparent distress, Oriented x3 HEENT: Atraumatic, Normocephalic Neck: Supple, 2+ carotid pulse no bruit Respiratory: Clear to auscultation bilaterally, Normal air movement Cardiovascular: Other (AFlutter HR 140 Tachycardic, regular) Capillary refill: <2 Seconds Gastrointestinal: Normal bowel sounds, Soft and benign Integumentary: No rashes, No breakdown Neurological: Normal speech, Normal strength at 5/5 x4 extr - Studies Laboratory Data (last 24 hrs) 03/17/23 03/17/23 16:12 16:12 WBC 6.50 Hgb 13.0 L Hct 37.6 L Plt Count 159 Sodium 139 Potassium 3.8 BUN 26 H Creatinine 1.00 Glucose 119 H <Bindu Vázquez - Last Filed: 03/18/23 09:24> Assessment & Plan - Advance Directives Does patient have a Living Will: No Does patient have a Durable POA for Healthcare: No <Lakisha Pearsonzal - Last Filed: 03/17/23 17:54> - Plan Assessment plan Atrial flutter Chest pain Elevated troponin Cardiology, telemetry, p.o. sotalol Dr. Castano for cardiology scheduled for outpatient cath on April 01. BP 121 / 75; Pulse 75; Resp 18; Temp 98.1(O); Pulse Ox 98% on R/A; Weight 78.93 kg Height 5 ft. 8 in. ; Pain 1/10; EKG 4 Rate is 146 beats/min. Rhythm is regular. QRS [place] is Normal. QRS interval is normal. QT interval is normal. ST Segment is depressed in leads II, III, aVF. Clinical impression: Atrial Flutter. treated ER : Magnesium Sulfate IVPB 1 grams IVPB once over 1 hrs Route: IVPB, Sotalol PO 80 mg PO once Route: PO; Lab troponin 16.5, 309.3, 110.4, Hypertension Hyperlipidemia full code DVT Lovenox 1 mg/kg diet NPO after MN Discharge Plan: Home Plan to discharge in: 24 Hours - Code Status/Comfort Care Code Status: Full Code Time Spent Managing PTS Care (In Minutes): 55 <Bindu Vázquez - Last Filed: 03/18/23 09:24>
--- NOTE | 2023-03-17 18:01 | RAD REPORT ---
EXAM DESCRIPTION: Shadet Single View03/17/2023 4:58 pm CLINICAL HISTORY: CHEST PAIN COMPARISON: Chest Single View dated 09/22/2018; CHEST SINGLE VIEW dated 01/20/2014; CHEST PA AND LAT 2 VIEW dated 02/06/2009; CHEST SINGLE VIEW dated 12/05/2007 TECHNIQUE: Portable AP view of the chest. FINDINGS: The lungs are clear. No pneumothorax or effusion. The cardiomediastinal contours are unre markable. IMPRESSION: No acute cardiopulmonary process.
[2023-03-17] MEDS: ENOXAPARIN 80 MG/0.8 ML SQ SCH (21:18)
[2023-03-17 21:52] VITALS: BMI 26.8
[2023-03-18 04:16] LABS: Absolute Lymphocytes (CBC) 1.7 K/uL (0.7-4.9); Hematocrit 37.4 % (39.6-49.0); Lymphocytes % 23.2 % (15.3-44.8); MCV 94.7 fL (80-100); Platelets 149 thou/uL (152-406); RBC Red Blood Cell Count 3.95 M/uL (4.33-5.43)
[2023-03-18 04:33] LABS: Potassium 4.1 mEq/L (3.5-5.1)
[2023-03-18] MEDS: SOTALOL HCL 80 MG TAB PO SCH ×2 (06:12→17:58)
[2023-03-18] MEDS: ENOXAPARIN 80 MG/0.8 ML SQ SCH (08:24)
[2023-03-18] MEDS ORDERED: ASPIRIN EC 81 MG TAB PO SCH (09:00)
--- NOTE | 2023-03-18 09:25 | P.PN ---
Subjective Date of Service: 03/18/23 Chief Complaint: Aflutter RVR - Physical Exam General: Alert, In no apparent distress, Oriented x3 HEENT: Atraumatic, Normocephalic Neck: Supple, 2+ carotid pulse no bruit Respiratory: Clear to auscultation bilaterally, Normal air movement Cardiovascular: RRR, Capillary refill: <2 Seconds Gastrointestinal: Normal bowel sounds, Soft and benign Integumentary: No rashes, No breakdown Neurological: Normal speech, Normal strength at 5/5 x4 extr Physical Examination - Vital Signs Temperature: 97.1 F Blood Pressure: 116/68 Pulse: 66 Respirations: 18 Pulse Ox (%): 98 - Studies Laboratory Data (last 24 hrs) 03/17/23 03/17/23 16:12 16:12 WBC 6.50 Hgb 13.0 L Hct 37.6 L Plt Count 159 Sodium 139 Potassium 3.8 BUN 26 H Creatinine 1.00 Glucose 119 H Assessment And Plan - Plan Assessment plan Atrial flutter Chest pain Elevated troponin Cardiology, telemetry, p.o. sotalol Dr. Castano for cardiology scheduled for outpatient cath on April 01. BP 121 / 75; Pulse 75; Resp 18; Temp 98.1(O); Pulse Ox 98% on R/A; Weight 78.93 kg Height 5 ft. 8 in. ; Pain 1/10; EKG 4 Rate is 146 beats/min. Rhythm is regular. QRS [place] is Normal. QRS interval is normal. QT interval is normal. ST Segment is depressed in leads II, III, aVF. Clinical impression: Atrial Flutter. treated ER : Magnesium Sulfate IVPB 1 grams IVPB once over 1 hrs Route: IVPB, Sotalol PO 80 mg PO once Route: PO; Lab troponin 16.5, 309.3, 110.4, Hypertension Hyperlipidemia full code DVT Lovenox 1 mg/kg diet NPO after MN
--- NOTE | 2023-03-18 13:24 | EKG ---
Test Date: 2023-03-17 Test Time: 15:45:08 Extrusion Press Operator: DEB MEASUREMENT RESULTS: Intervals: Rate: 146 PA: 150 QRSD: 120 QT: 344 QTc: 536 [place]: P: PA: 150 QRS: 36 T: -73 INTERPRETIVE STATEMENTS: Sinus tachycardia Septal infarct, age undetermined ST & T wave abnormality, consider inferior ischemia Abnormal ECG Compared to ECG 01/25/2022 08:49:05 ST (T wave) deviation now present Possible ischemia now present Sinus bradycardia no longer present Myocardial infarct finding still present Electronically Signed On 03-18-23 13:22:37 TRANSPORTATION MUSEUM HELPER by Marcelo Castano
--- NOTE | 2023-03-18 13:29 | P.DS ---
Admission Date: 03/17/23 Discharge Date: 03/18/23 Disposition: ROUTINE DISCHARGE Discharge Condition: GOOD Reason for Admission: Aflutter RVR Brief History of Present Illness: 82-year-old male with a past medical history of hypertension, hyperlipidemia, CAD, presents emergency room with chest pain, chest pain started today. Are described as intermittent, nothing makes them better, nothing makes them worse. Reports associated palpitations reports seen Dr. Castano for cardiology scheduled for outpatient cath on April 01. Denies fever, cough, nausea vomiting diarrhea syncope.1 BP 121 / 75; Pulse 75; Resp 18; Temp 98.1(O); Pulse Ox 98% on R/A; Weight 78.93 kg; ph Height 5 ft. 8 in. ; Pain 1/10; EKG 4 Rate is 146 beats/min. Rhythm is regular. QRS Lefor is Normal. QRS interval is normal. rn QT interval is normal. ST Segment is depressed in leads II, III, aVF. Clinical impression: Atrial Flutter. treated ER : Magnesium Sulfate IVPB 1 grams IVPB once over 1 hrs Route: IVPB, Sotalol PO 80 mg PO once Route: PO; plan to admit for Unspecified atrial flutter - with rapid ventricular rate rn - Chest pain, unspecified Lab troponin 16.5, 309.3, 110.4, - Physical Exam General: Alert, In no apparent distress, Oriented x3 HEENT: Atraumatic, Normocephalic Neck: Supple, 2+ carotid pulse no bruit Respiratory: Clear to auscultation bilaterally, Normal air movement Cardiovascular: RRR, Capillary refill: <2 Seconds Gastrointestinal: Normal bowel sounds, Soft and benign Integumentary: No rashes, No breakdown Hospital Course: Patient presented with palpitations and atrial flutter. Was noted to have atrial flutter on EKG. Was seen by cardiology consult. Was treated with p.o. Betapace, therapeutic Lovenox. Condition improved with IV magnesium in the emergency room started on p.o. Betapace. Stable for discharge with follow-up cardiology appointment. Plan to discharge home on new prescription of Betapace medications. PROBLEM: Atrial flutter Afib controlled rate 81 at discharge Follow-up with cardiology in 1 to 2 weeks New prescription Betapace 80 mg 1 tablet by mouth. twice daily New prescription for Eliquis 5 mg 1 p.o. twice daily GOAL: Clear understanding of disease process INSTRUCTIONS: Physician Discharge Instructions: -DC IV and DC home -Follow-up with PCP in 1 to 2 weeks -Please call Dr. Pearson at [phone] if any questions regarding hospital stay -Please call nursing station at [phone] if any nursing or medication questions -Return to the emergency room if symptoms worsen Diet: ADA, low sodium Activity: Fall precautions DME: Date Ordered: Name of Company: [employer] Services Needed: None Date or Referral: IMMUNIZATION Influenza Vaccine Indicated: Influenza Vaccine Given: Date Given: Pneumonia Vaccine Indicated: Pneumonia Vaccine Given: Date Given: Vital Signs/Physical Exam: Temp Pulse Resp BP Pulse Ox 97.5 F 71 18 125/64 97 03/18/23 12:00 03/18/23 12:00 03/18/23 12:00 03/18/23 12:00 03/18/23 12:00 Laboratory Data at Discharge: WBC 7.30 thou/uL (4.3-10.9) 03/18/23 03:55 Hgb 12.7 g/dL (13.6-17.9) L 03/18/23 03:55 Hct 37.4 % (39.6-49.0) L 03/18/23 03:55 Plt Count 149 thou/uL (152-406) L 03/18/23 03:55 Sodium 139 mEq/L (136-145) 03/18/23 03:55 Potassium 4.1 mEq/L (3.5-5.1) 03/18/23 03:55 BUN 17 mg/dL (7-18) 03/18/23 03:55 Creatinine 0.84 mg/dL (0.70-1.30) 03/18/23 03:55 Glucose 100 mg/dL (74-106) 03/18/23 03:55 Triglycerides Cancelled 03/18/23 04:00 Cholesterol Cancelled 03/18/23 04:00 HDL Cholesterol Cancelled 03/18/23 04:00 Cholesterol/HDL Ratio Cancelled 03/18/23 04:00 Home Medications: Atorvastatin Calcium [Lipitor] 80 mg PO DAILY 01/20/14 Glucosamine/Chondroitin Sulf A [Glucosamine Chondroitin Cap] 1 each PO DAILY 01/20/14 Aspirin [Aspirin EC 81 MG] 81 mg PO DAILY 03/18/14 Metformin HCl [Glucophage*] 500 mg PO DAILY AT SUPPER 01/25/22 Cholecalciferol (Vitamin D3) [Vitamin D 1000 Iu Tab*] 4,000 unit PO DAILY 03/17/23 Apixaban [Eliquis] 5 mg PO BID #60 tab 03/18/23 Sotalol HCl [Betapace*] 80 mg PO BID 6AM 6PM #60 tab 03/18/23 New Medications: Sotalol HCl [Betapace*] 80 mg PO BID 6AM 6PM #60 tab Apixaban [Eliquis] 5 mg PO BID #60 tab Physician Discharge Instructions: -DC IV and DC home -Follow-up with PCP in 1 to 2 weeks -Follow-up with Cardiology in 1 to 2 weeks -Please call Dr. Pearson at [phone] if any questions regarding hospital stay -Please call nursing station at [phone] if any nursing or medication questions -Return to the emergency room if symptoms worsen Followup: Tl Griffiths, DO [Primary Care Provider] - Time spent managing pt's care (in minutes): 55
[2023-03-18 16:40] VITALS: O2SAT 96
[2023-03-18 16:52] VITALS: BP 106/60; TEMP 97.6
[2023-03-18] MEDS ORDERED: APIXABAN 5 MG TABLET PO SCH (18:00)
== END 2023-03-18 18:45 | disposition home or self-care (01) ==
LOC: ER 15:40 → ERHOLD 18:15 → 4TH 20:01
PROVIDERS: ADMIT Hospitalist; ATTEND Hospitalist
DX: I48.92 Unspecified atrial flutter (principal); R79.89 Other specified abnormal findings of blood chemistry; R07.9 Chest pain, unspecified; I10 Essential (primary) hypertension; E78.5 Hyperlipidemia, unspecified; I25.10 Atherosclerotic heart disease of native coronary artery without angina pectoris; F17.210 Nicotine dependence, cigarettes, uncomplicated
CPT/HCPCS: 96365; 96368; 93005; 85025 ×2; 80048 ×2; 36415; 80061; 84484 ×3; 83880; 71045; 99285; 96366; J3475; J7050; G0378 ×4

== ENCOUNTER 2023-04-04 10:46 | Day surgery (SDC) | payer OTHER ==
[2023-03-29 11:12] LABS: Absolute Lymphocytes (CBC) 1.3 K/uL (0.7-4.9); Hematocrit 36.7 % (39.6-49.0); Lymphocytes % 27.2 % (15.3-44.8); MCV 94.7 fL (80-100); MPV 9.6 fL (7.6-11.3); Platelets 142 thou/uL (152-406); RBC Red Blood Cell Count 3.88 M/uL (4.33-5.43)
[2023-03-29 11:20] LABS: Protime INR 1.32
[2023-03-29 11:28] LABS: Potassium 4.4 mEq/L (3.5-5.1)
--- NOTE | 2023-03-30 17:26 | EKG ---
Test Date: 2023-03-29 Test Time: 11:35:01 It Applications Analyst: JENI MEASUREMENT RESULTS: Intervals: Rate: 47 CO: 156 QRSD: 92 QT: 442 QTc: 391 [place]: P: 43 CO: 156 QRS: 79 T: 46 INTERPRETIVE STATEMENTS: Marked sinus bradycardia Septal infarct, age undetermined Lateral infarct, age undetermined Abnormal ECG Compared to ECG 03/18/2023 19:12:45 Atrial fibrillation no longer present Myocardial infarct finding still present Electronically Signed On 03-30-23 17:23:33 EDUCATION MANAGER by Marcelo Castano
[2023-04-04] MEDS ORDERED: NA CHLORIDE 0.9% 500 ML ONE (10:48)
[2023-04-04] MEDS ORDERED: HEPA 1000U/500MLS 2,000 UNIT/1,000 ML BAG IV ONE (11:04)
[2023-04-04] MEDS ORDERED: LIDOCAINE 1% 20 ML MDV ONE (11:05)
[2023-04-04] MEDS ORDERED: NITROGLYCERIN/D5W 25 MG/250 ML BTL IV ONE (11:20)
[2023-04-04] MEDS ORDERED: VERAPAMIL HCL 10 MG/4 ML VIAL IV ONE (11:20)
[2023-04-04] MEDS ORDERED: FENTANYL CITR 100 MCG/2 ML ONE (11:21)
[2023-04-04] MEDS ORDERED: HEPARIN 5000 UNIT/ML 1 ML VIAL ONE (11:21)
[2023-04-04] MEDS ORDERED: ATROPINE SULF 1 MG/10 ML SYR IV ONE (11:21)
[2023-04-04] MEDS ORDERED: MIDAZOLAM HCL 2 MG/2 ML INJ ONE (11:21)
[2023-04-04] MEDS ORDERED: TICAGRELOR 90 MG TABLET PO ONE (11:21)
[2023-04-04] MEDS ORDERED: HEPARIN 10,000 UNIT/10 ML VIAL IV ONE (11:22)
[2023-04-04] MEDS ORDERED: CLOPIDOGREL 75 MG TABLET ONE (11:22)
[2023-04-04] MEDS ORDERED: ASPIRIN 325 MG TAB ONE (11:22)
[2023-04-04 12:54] VITALS: TEMP 97.9
--- NOTE | 2023-04-04 13:48 | OP ---
Date of Procedure: 04/04/2023 Surgeon: JOSE SRINIVASAN Procedures Performed: 1.Selective coronary angiogram. 2.Left heart catheterization. Indication: Abnormal stress test with chest pain. Access: Right radial artery 6-Egyptian closed with TR band. Complications: None. Bleeding: Less than 20 mL. Anesthesia: Total sedation time was 30 minutes. Description Of Procedure: After risks, benefits, alternatives were explained, the patient agreed to procedure and signed informed consent. The patient was brought into cardiac catheterization laborato , prepped and draped in the usual sterile fashion. Then I accessed right radial artery using pedia tric micropuncture kit, placed 6-Egyptian Slender sheath and took 5-Egyptian Huntington 4.0 catheter into aort ic root, engaged left main and then the right coronary artery, took standard views and then the ely ter was pushed over the wire into the LV, measured the LVEDP. Pullback did not record any gradient. Then I removed the catheter and the sheath, placed TR band with good hemostasis. Findings: 1.Left main; large, with 20% stenosis. 2.LAD; proximal segment has a diffuse disease and then becomes a APPLICATIONS ENGINEER 100% occluded LAD after diagona l takeoff. It is getting collaterals from the right coronary artery. 3.Left circumflex; large and codominant. Mid to distal 40% stenosis. 4.RCA; large and codominant. Diffuse plaque is present proximally with luminal irregularities. The mid segment has 30% to 40% stenosis and there are collaterals to the LAD. 5.LVEDP is 9 mmHg. Conclusion: 1.Severe LAD stenosis. It is a APPLICATIONS ENGINEER with collaterals from the right. 2.Moderate coronary artery disease elsewhere. Recommendation: Maximize medical therapy. If the patient continues to be symptomatic, then we will plan for APPLICATIONS ENGINEER intervention at [facility]. /SUMEET Voice ID: [id number] Report ID: [id number]
[2023-04-04 15:44] VITALS: BP 170/65; O2SAT 98
== END 2023-04-04 15:35 | disposition home or self-care (01) ==
LOC: CCL 10:46
PROVIDERS: ATTEND Internal Medicine
PROC: 4A023N7 Measurement of Cardiac Sampling and Pressure, Left Heart, Percutaneous Approach (ICD-10-PCS; principal; 2023-04-04)
PROC: B2111ZZ Fluoroscopy of Multiple Coronary Arteries using Low Osmolar Contrast (ICD-10-PCS; 2023-04-04)
DX: I25.110 Atherosclerotic heart disease of native coronary artery with unstable angina pectoris (principal); I25.82 Chronic total occlusion of coronary artery; I65.23 Occlusion and stenosis of bilateral carotid arteries; I10 Essential (primary) hypertension; E11.9 Type 2 diabetes mellitus without complications; E78.5 Hyperlipidemia, unspecified; Z95.5 Presence of coronary angioplasty implant and graft; Z87.891 Personal history of nicotine dependence; Z79.82 Long term (current) use of aspirin; Z79.84 Long term (current) use of oral hypoglycemic drugs; Z79.899 Other long term (current) drug therapy; Z82.49 Family history of ischemic heart disease and other diseases of the circulatory system
CPT/HCPCS: 93005; 85025; 80048; 36415; 83721; 85610; 82947; 85730; 93458; J1644; J2001; J2250; J3010; J7040; 76937; 99152; 99153; C1893; J0461; Q9966

== ENCOUNTER 2024-03-03 16:05 | Emergency (ER) | payer OTHER ==
--- OUTSIDE RECORDS SUMMARY | 2024-03-03 16:08 | XMS REPORT | Continuity of Care Document ---
Author Name Unknown Address [address] [place] [id number] [place] [address] [facility]connect Address [address] [address] [address] [place] [address] Care Team Providers Care Economics Teacher Name Role Phone Tl Griffiths Attending Clinician Unavailable Belle Luna Attending Clinician Unavailable Payers Payer Name Policy Type Policy Number Effective Date Expirati on Date Source [employer] MED[employer]ARE PPO 53 [id number] 2020 00:00:00 [facility] Problems Condition Name Condition Details Condition Category Status Onset Date Resolution Date Last Treatment Date Treating Clinician Comments Source [id number] Closed displaced comminuted fracture of left patella with routine healing, subsequent encounter Problem [facility] [id number] Nondisplac ed fracture of left radial styloid process, initial encounter for closed fracture Problem [facility] [id number] Pain in joint of left wrist Problem [facility] [id number] Closed Colles' fracture of left radius with routine healing, subsequent encounter Problem [facility] [id number] Unilateral primary osteoarthr itis, left knee Problem [facility] [id number] Pain, joint, knee, left Problem [facility] [id number] 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 Problem [facility] [id number] Mixed hyperlipid emia Problem [facility] [id number] Vitamin D deficiency Problem [facility] [id number] Essential hypertensi on Problem [facility] [id number] Controlled type 2 diabetes mellitus without complicati on, without long-term current use of insulin Problem [facility] [id number] Atrial fibrillati on with RVR Problem [facility] Anemia Anemia, unspecifie d type Problem [facility] Overweight Overweight Problem Co mmon [facility] [id number] 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 Ordering Clinician Indication Dosage Frequency Signature (SIG) Comments Components Source LIDOCAINE HCL 10MG/ML LIDOCAINE HCL 10MG/ML 05-18 00:00: 00 No 10mg [facility] Depo Medrol (40mg) Depo Medrol (40mg) 05-18 00:00: 00 No 40mg [facility] metFORMIN HCl ER 500 MG metFORMIN HCl ER 500 MG No 1{table t_with_ evening _meal} QD metFORMIN HCl ER 500 MG Metoprolol Tartrate 25 MG Metoprolol Tartrate 25 MG No 1{table t_with_ food} BID Metoprolol Tartrate 25 MG Atorvastati n Calcium 80 MG Atorvastati n Calcium 80 MG No Atorvastat in Calcium 80 MG Glucosamine 500 MG Glucosamine 500 MG No 1{capsu le_with _a_meal } QD Glucosamin e 500 MG Eliquis 5 MG Eliquis 5 MG No Eliquis 5 MG Vitamin D 50 MCG (1999) Vitamin D 50 MCG (1999) No 1{table t} QD Vitamin D 50 MCG (1999) Co Q 10 100 MG Co Q 10 100 MG No Co Q 10 100 MG Immunizations Ordered Immunization Name Filled Immunization Name Date Status Comments Source Moderna COVID-19 Vaccine, Bivalent Moderna COVID-19 Vaccine, Bivalent 2021-12-11 17:25:00 Completed [facility] Moderna COVID-19 Vaccine, Bivalent Moderna COVID-19 Vaccine, Bivalent 2021-12-11 17:25:00 Completed [facility] Moderna COVID-19 Vaccine, Bivalent Moderna COVID-19 Vaccine, Bivalent 2021-12-11 17:25:00 Completed [facility] Moderna COVID-19 Vaccine, Bivalent Moderna COVID-19 Vaccine, Bivalent 2021-12-11 17:25:00 Completed [facility] Moderna COVID-19 Vaccine, Bivalent Moderna COVID-19 Vaccine, Bivalent 2021-12-11 17:25:00 Completed [facility] Moderna COVID-19 Vaccine, Bivalent Moderna COVID-19 Vaccine, Bivalent 2021-12-11 17:25:00 Completed [facility] Moderna COVID-19 Vaccine, Bivalent Moderna COVID-19 Vaccine, Bivalent 2021-12-11 17:25:00 Completed [facility] FLUZONE HIGH DOSE OVER 65 FLUZONE HIGH DOSE OVER 65 2021-11-29 17:25:00 Completed [facility] FLUZONE HIGH DOSE OVER 65 FLUZONE HIGH DOSE OVER 65 2021-11-29 17:25:00 Completed [facility] FLUZONE HIGH DOSE OVER 65 FLUZONE HIGH DOSE OVER 65 2021-11-29 17:25:00 Completed [facility] FLUZONE HIGH DOSE OVER 65 FLUZONE HIGH DOSE OVER 65 2021-11-29 17:25:00 Completed [facility] FLUZONE HIGH DOSE OVER 65 FLUZONE HIGH DOSE OVER 65 2021-11-29 17:25:00 Completed [facility] FLUZONE HIGH DOSE OVER 65 FLUZONE HIGH DOSE OVER 65 2021-11-29 17:25:00 Completed [facility] FLUZONE HIGH DOSE OVER 65 FLUZONE HIGH DOSE OVER 65 2021-11-29 17:25:00 Completed [facility] LIDOCAINE HCL 10MG/ML LIDOCAINE HCL 10MG/ML 2018-05-18 09:28:00 Completed [facility] Depo Medrol (40mg) Depo Medrol (40mg) 2018-05-18 09:27:00 Completed [facility] Moderna COVID-19 Vaccine, Bivalent Moderna COVID-19 Vaccine, Bivalent Unknown Completed [facility] FLUZONE HIGH DOSE OVER 65 FLUZONE HIGH DOSE OVER 65 Unknown Completed [facility] Moderna COVID-19 Vaccine, Bivalent Moderna COVID-19 Vaccine, Bivalent Unknown Completed [facility] FLUZONE HIGH DOSE OVER 65 FLUZONE HIGH DOSE OVER 65 Unknown Completed [facility] Moderna COVID-19 Vaccine, Bivalent Moderna COVID-19 Vaccine, Bivalent Unknown Completed [facility] FLUZONE HIGH DOSE OVER 65 FLUZONE HIGH DOSE OVER 65 Unknown Completed [facility] Moderna COVID-19 Vaccine, Bivalent Moderna COVID-19 Vaccine, Bivalent Unknown Completed [facility] FLUZONE HIGH DOSE OVER 65 FLUZONE HIGH DOSE OVER 65 Unknown Completed [facility] Moderna COVID-19 Vaccine, Bivalent Moderna COVID-19 Vaccine, Bivalent Unknown Completed [facility] FLUZONE HIGH DOSE OVER 65 FLUZONE HIGH DOSE OVER 65 Unknown Completed [facility] Moderna COVID-19 Vaccine, Bivalent Moderna COVID-19 Vaccine, Bivalent Unknown Completed [facility] FLUZONE HIGH DOSE OVER 65 FLUZONE HIGH DOSE OVER 65 Unknown Completed [facility] Moderna COVID-19 Vaccine, Bivalent Moderna COVID-19 Vaccine, Bivalent Unknown Completed [facility] FLUZONE HIGH DOSE OVER 65 FLUZONE HIGH DOSE OVER 65 Unknown Completed [facility] Moderna COVID-19 Vaccine, Bivalent Moderna COVID-19 Vaccine, Bivalent Unknown Completed [facility] FLUZONE HIGH DOSE OVER 65 FLUZONE HIGH DOSE OVER 65 Unknown Completed [facility] Moderna COVID-19 Vaccine, Bivalent Moderna COVID-19 Vaccine, Bivalent Unknown Completed [facility] FLUZONE HIGH DOSE OVER 65 FLUZONE HIGH DOSE OVER 65 Unknown Completed [facility] Moderna COVID-19 Vaccine, Bivalent Moderna COVID-19 Vaccine, Bivalent Unknown Completed [facility] FLUZONE HIGH DOSE OVER 65 FLUZONE HIGH DOSE OVER 65 Unknown Completed [facility] Vital Signs Vital Name Observation Time Observation Value Comments Laney gudino height 2024-02-23 08:30:00 65.50 [in_i] Com [facility] weight 2024-02-23 08:30:00 175.6 [lb_av] Co [facility] temperature 2024-02-23 08:30:00 97.3 [degF] Com [facility] bmi 2024-02-23 08:30:00 28.77 kg/m2 Comm on [facility] oximetry 2024-02-23 08:30:00 97 % Commo n [facility] respiratory rate 2024-02-23 08:30:00 16 /min [facility] blood pressure systolic 2024-02-23 08:30:00 128 mm[Hg] [facility] blood pressure diastolic 2024-02-23 08:30:00 78 mm[Hg] [facility] height 2023-10-24 08:50:00 65.50 [in_i] Com [facility] weight 2023-10-24 08:50:00 168.8 [lb_av] Co [facility] temperature 2023-10-24 08:50:00 97.2 [degF] Com [facility] bmi 2023-10-24 08:50:00 27.66 kg/m2 Comm on [facility] oximetry 2023-10-24 08:50:00 98 % Commo n [facility] blood pressure systolic 2023-10-24 08:50:00 136 mm[Hg] [facility] blood pressure diastolic 2023-10-24 08:50:00 64 mm[Hg] [facility] height 2023-10-24 08:50:00 65.50 [in_i] Com [facility] weight 2023-10-24 08:50:00 168.8 [lb_av] Co [facility] temperature 2023-10-24 08:50:00 97.2 [degF] Com [facility] bmi 2023-10-24 08:50:00 27.66 kg/m2 Comm on [facility] oximetry 2023-10-24 08:50:00 98 % Commo n [facility] blood pressure systolic 2023-10-24 08:50:00 136 mm[Hg] [facility] blood pressure diastolic 2023-10-24 08:50:00 64 mm[Hg] [facility] height 2023-10-24 09:00:00 65.50 [in_i] Com [facility] weight 2023-10-24 09:00:00 168.8 [lb_av] Co [facility] temperature 2023-10-24 09:00:00 97.2 [degF] Com [facility] bmi 2023-10-24 09:00:00 27.66 kg/m2 Comm on [facility] oximetry 2023-10-24 09:00:00 98 % Commo n [facility] respiratory rate 2023-10-24 09:00:00 17 /min Common [facility] blood pressure systolic 2023-10-24 09:00:00 136 mm[Hg] [facility] blood pressure diastolic 2023-10-24 09:00:00 64 mm[Hg] [facility] height 2023-06-21 08:50:00 65.50 [in_i] Com [facility] weight 2023-06-21 08:50:00 169.6 [lb_av] Co mmon [facility] temperature 2023-06-21 08:50:00 97.2 [degF] Com [facility] bmi 2023-06-21 08:50:00 27.79 kg/m2 Comm on [facility] oximetry 2023-06-21 08:50:00 98 % Commo n [facility] blood pressure systolic 2023-06-21 08:50:00 137 mm[Hg] [facility] blood pressure diastolic 2023-06-21 08:50:00 67 mm[Hg] Common [facility] height 2023-03-21 08:30:00 65.50 [in_i] Com [facility] weight 2023-03-21 08:30:00 174.8 [facility]_av[facility]-03-21 08:30:00 97.5 [degF] Com [facility] bmi 2023-03-21 08:30:00 28.64 kg/m2 Comm on [facility] oximetry 2023-03-21 08:30:00 99 % Commo n [facility] blood pressure systolic 2023-03-21 08:30:00 138 mm[Hg] [facility] blood pressure diastolic 2023-03-21 08:30:00 62 mm[Hg] Common [facility] height 2022-11-18 08:30:00 65.50 [in_i] Com [facility] weight 2022-11-18 08:30:00 173.6 [lb_av] Co [facility] temperature 2022-11-18 08:30:00 97.9 [degF] Com [facility] bmi 2022-11-18 08:30:00 28.45 kg/m2 Comm on [facility] oximetry 2022-11-18 08:30:00 97 % Commo n [facility] respiratory rate 2022-11-18 08:30:00 17 /min [facility] blood pressure systolic 2022-11-18 08:30:00 137 mm[Hg] [facility] blood pressure diastolic 2022-11-18 08:30:00 68 mm[Hg] [facility] height 2022-11-18 08:40:00 65.50 [in_i] Com [facility] weight 2022-11-18 08:40:00 173.6 [lb_av] Co [facility] temperature 2022-11-18 08:40:00 97.9 [degF] Com [facility] bmi 2022-11-18 08:40:00 28.45 kg/m2 Comm on [facility] oximetry 2022-11-18 08:40:00 97 % Commo n [facility] respiratory rate 2022-11-18 08:40:00 17 /min [facility] blood pressure systolic 2022-11-18 08:40:00 137 mm[Hg] [facility] blood pressure diastolic 2022-11-18 08:40:00 68 mm[Hg] [facility] height 2022-08-18 11:20:00 65.50 [in_i] Com [facility] weight 2022-08-18 11:20:00 173.6 [lb_av] Co [facility] temperature 2022-08-18 11:20:00 98.1 [degF] Com [facility] bmi 2022-08-18 11:20:00 28.45 kg/m2 Comm on [facility] oximetry 2022-08-18 11:20:00 98 % Commo n [facility] respiratory rate 2022-08-18 11:20:00 18 /min Common [facility] blood pressure systolic 2022-08-18 11:20:00 140 mm[Hg] [facility] blood pressure diastolic 2022-08-18 11:20:00 64 mm[Hg] [facility] height 2022-05-10 13:30:00 65.50 [in_i] Com [facility] weight 2022-05-10 13:30:00 171.0 [lb_av] Co mmon [facility] temperature 2022-05-10 13:30:00 97.0 [degF] Com [facility] bmi 2022-05-10 13:30:00 28.02 kg/m2 Comm on [facility] oximetry 2022-05-10 13:30:00 98 % Commo n [facility] respiratory rate 2022-05-10 13:30:00 17 /min Common [facility] blood pressure systolic 2022-05-10 13:30:00 138 mm[Hg] [facility] blood pressure diastolic 2022-05-10 13:30:00 67 mm[Hg] [facility] height 2022-03-10 09:15:00 65.50 [in_i] Com [facility] weight 2022-03-10 09:15:00 174 [lb_av] Comm on [facility] temperature 2022-03-10 09:15:00 98.4 [degF] Com [facility] bmi 2022-03-10 09:15:00 28.51 kg/m2 Comm on [facility] blood pressure systolic 2022-03-10 09:15:00 134 mm[Hg] [facility] blood pressure diastolic 2022-03-10 09:15:00 78 mm[Hg] [facility] height 2022-02-24 10:00:00 65.50 [in_i] Com [facility] weight 2022-02-24 10:00:00 172 [lb_av] Comm on [facility] temperature 2022-02-24 10:00:00 98.5 [degF] Com [facility] bmi 2022-02-24 10:00:00 28.18 kg/m2 Comm on [facility] blood pressure systolic 2022-02-24 10:00:00 128 mm[Hg] [facility] blood pressure diastolic 2022-02-24 10:00:00 81 mm[Hg] [facility] height 2022-02-10 09:00:00 65.50 [in_i] Com [facility] weight 2022-02-10 09:00:00 172 [lb_av] Comm on [facility] temperature 2022-02-10 09:00:00 98.6 [degF] Com [facility] bmi 2022-02-10 09:00:00 28.18 kg/m2 Comm on [facility] blood pressure systolic 2022-02-10 09:00:00 132 mm[Hg] [facility] blood pressure diastolic 2022-02-10 09:00:00 70 mm[Hg] [facility] height 2022-01-21 10:30:00 65.50 [in_i] Com [facility] weight 2022-01-21 10:30:00 172.2 [facility]lb_av[facility] 2022-01-21 10:30:00 97.6 [degF] Com [facility] bmi 2022-01-21 10:30:00 28.22 kg/m2 Comm on [facility] blood pressure systolic 2022-01-21 10:30:00 130 mm[Hg] Common [facility] blood pressure diastolic 2022-01-21 10:30:00 62 mm[Hg] Common [facility] height 2021-11-19 10:20:00 65.50 [in_i] Com [facility] weight 2021-11-19 10:20:00 172.2 [lb_av] Co mmon [facility] temperature 2021-11-19 10:20:00 97.3 [degF] Com [facility] bmi 2021-11-19 10:20:00 28.22 kg/m2 Comm on [facility] oximetry 2021-11-19 10:20:00 98 % Commo n [facility] respiratory rate 2021-11-19 10:20:00 16 /min [facility] blood pressure systolic 2021-11-19 10:20:00 130 mm[Hg] [facility] blood pressure diastolic 2021-11-19 10:20:00 62 mm[Hg] [facility] height 2021-11-19 10:20:00 65.50 [in_i] Com [facility] weight 2021-11-19 10:20:00 172.2 [lb_av] [facility] 2021-11-19 10:20:00 97.3 [degF] Com [facility] bmi 2021-11-19 10:20:00 28.22 kg/m2 Comm on [facility] oximetry 2021-11-19 10:20:00 98 % Commo n [facility] respiratory rate 2021-11-19 10:20:00 16 /min [facility] blood pressure systolic 2021-11-19 10:20:00 130 mm[Hg] [facility] blood pressure diastolic 2021-11-19 10:20:00 62 mm[Hg] [facility] height 2021-09-24 08:20:00 65.50 [in_i] Com [facility] weight 2021-09-24 08:20:00 172.4 [lb_av] Co mmon [facility] temperature 2021-09-24 08:20:00 97.2 [degF] Com [facility] bmi 2021-09-24 08:20:00 28.25 kg/m2 Comm on [facility] oximetry 2021-09-24 08:20:00 98 % Commo n [facility] respiratory rate 2021-09-24 08:20:00 16 /min [facility] blood pressure systolic 2021-09-24 08:20:00 136 mm[Hg] Common [facility] blood pressure diastolic 2021-09-24 08:20:00 72 mm[Hg] [facility] height 2021-03-26 08:20:00 68 [in_i] Commo n [facility] weight 2021-03-26 08:20:00 172 [lb_av] Comm on [facility] temperature 2021-03-26 08:20:00 96.4 [degF] Com [facility] bmi 2021-03-26 08:20:00 26.15 kg/m2 Comm on [facility] oximetry 2021-03-26 08:20:00 99 % Commo n [facility] respiratory rate 2021-03-26 08:20:00 24 /min Common [facility] blood pressure systolic 2021-03-26 08:20:00 138 mm[Hg] [facility] blood pressure diastolic 2021-03-26 08:20:00 78 mm[Hg] Common [facility] height 2020-07-15 15:20:00 68 [in_i] Commo n [facility] weight 2020-07-15 15:20:00 176.0 [lb_av] Co mmon [facility] temperature 2020-07-15 15:20:00 97.3 [degF] Com mon [facility] bmi 2020-07-15 15:20:00 26.76 kg/m2 Comm on [facility] oximetry 2020-07-15 15:20:00 97 % Commo n [facility] respiratory rate 2020-07-15 15:20:00 16 /min [facility] blood pressure systolic 2020-07-15 15:20:00 156 mm[Hg] [facility] blood pressure diastolic 2020-07-15 15:20:00 74 mm[Hg] [facility] Encounters Start Date/Time End Date/Time Encounter Type Admission Type Attending [facility] Care Department Encounter ID Source 2022-11-16 08:03:00 Outpatient GriffithsCarlos Manuel wildeh [facility]LMLC ST[facility] [id number] [facility] 2022-08-10 11:24:00 Outpatient Tl Griffiths [facility] [id number] [facility] 2022-01-21 08:39:01 Outpatient Jeremy Na [facility] [id number] [facility] 2021-11-17 10:22:02 Outpatient Jeremy Na [facility] [id number] [facility] 2021-09-22 13:16:01 Outpatient Jeremy Na [facility] [id number] [facility] 2021-04-01 14:37:38 Outpatient Jeremy Na [facility] [id number] [facility] 2021-04-01 13:27:39 Outpatient Jeremy Na [facility] [id number] [facility] 2021-04-01 13:05:35 Outpatient Jeremy, Na STLMLC [facility] [id number] [facility] 2021-04-01 13:04:59 Outpatient Belle Luna [facility] [id number] [facility] 2024-02-23 00:00:00 2024-02-23 00:00:00 OFFICE VISIT ESTAB PT LEVEL 4 [facility] [id number] [facility] 2023-10-24 00:00:00 2023-10-24 00:00:00 OFFICE VISIT ESTAB PT LEVEL 4 [facility] [id number] [facility] 2023-10-24 00:00:00 2023-10-24 00:00:00 SUB ANNUAL MCR WELLNESS VISIT [facility] [id number] [facility] 2023-06-21 00:00:00 2023-06-21 00:00:00 OFFICE VISIT ESTAB PT LEVEL 4 [facility] [id number] [facility] 2023-03-21 00:00:00 2023-03-21 00:00:00 (ESTPT) Establishe d Patient [facility]C [facility] [id number] [facility] 2023-03-21 00:00:00 2023-03-21 00:00:00 (TEL) [facility]C ST[facility] [id number] [facility] 2022-11-18 00:00:00 2022-11-18 00:00:00 OFFICE VISIT ESTAB PT LEVEL 4 [facility] [id number] [facility] 2022-11-18 00:00:00 2022-11-18 00:00:00 SUB ANNUAL MCR WELLNESS VISIT [facility] [id number] [facility] 2022-09-28 00:00:00 2022-09-28 00:00:00 (TEL) [facility]C [facility] [id number] [facility] 2022-09-27 00:00:00 2022-09-27 00:00:00 (TEL) [facility]C [facility] [id number] [facility] 2022-08-18 00:00:00 2022-08-18 00:00:00 OFFICE VISIT ESTAB PT LEVEL 4 [facility] [id number] [facility] 2022-08-10 00:00:00 2022-08-10 00:00:00 (TEL) [facility]MLC [facility] [id number] [facility] 2022-05-10 00:00:00 2022-05-10 00:00:00 OFFICE VISIT ESTAB PT LEVEL 4 [facility] [id number] [facility] 2022-03-10 00:00:00 2022-03-10 00:00:00 NON-BILLAB LE VISIT [facility]C [facility] [id number] [facility] 2022-02-24 00:00:00 2022-02-24 00:00:00 NON-BILLAB LE VISIT [facility]LMLC [facility] [id number] [facility] 2022-02-10 00:00:00 2022-02-10 00:00:00 NON-BILLAB LE VISIT [facility]LMLC ST[facility] [id number] [facility] 2022-02-04 00:00:00 2022-02-04 00:00:00 (TEL) ST[facility]C ST[facility] [id number] [facility] 2022-01-25 00:00:00 2022-01-25 00:00:00 (TEL) [facility]C ST[facility] [id number] [facility] 2022-01-21 00:00:00 2022-01-21 00:00:00 OFFICE VISIT NEW PT LEVEL 3 [facility] [id number] [facility] 2021-11-19 00:00:00 2021-11-19 00:00:00 SUB ANNUAL MCR WELLNESS VISIT [facility] [id number] [facility] 2021-11-19 00:00:00 2021-11-19 00:00:00 NO CHARGE [facility]C [facility] [id number] [facility] 2021-09-24 00:00:00 2021-09-24 00:00:00 OFFICE VISIT ESTAB PT LEVEL 4 [facility] [id number] [facility] 2021-03-26 00:00:00 2021-03-26 00:00:00 OFFICE VISIT ESTAB PT LEVEL 4 [facility] [id number] [facility] 2021-02-23 00:00:00 2021-02-23 00:00:00 (TEL) ST[facility]C [facility] [id number] [facility] 2020-12-22 00:00:00 2020-12-22 00:00:00 (TEL) STL[facility]C [facility] [id number] [facility] 2020-09-23 00:00:00 2020-09-23 00:00:00 Outpatient [facility] [id number] [facility] 2020-09-23 00:00:00 2020-09-23 00:00:00 Outpatient [facility] [id number] [facility] 2020-09-23 00:00:00 2020-09-23 00:00:00 Outpatient [facility] [id number] [facility] 2020-07-15 00:00:00 2020-07-15 00:00:00 OFFICE VISIT NEW PT LEVEL 4 [facility] [id number] [facility] Results Test Description Test Time Test Comments Results Result Co mments Source HEMOGLOBIN [id number] 00:00:00* Test Item Value Reference Range Interpretation Comme nts HEMOGLOBIN A1c (test code = 4548-4) 6.8 % See_Comment H [Automated messa [employer]] The system which generated this result transmitted reference range: 4.2-5.6 %. The reference range was not used to interpret this result as normal/abnormal. CBC W/AUTO [id number] 00:00:00* Test Item Value Reference Range Interpretation Comme nts NUCLEATED RBCS (test code = 96422-1) 0.0 /100 WBC'S See_Comment [Automated messa ge] The system which generated this result transmitted reference range: 0.0 /100 WBC'S. The reference range was not used to interpret this result as normal/abnormal. ABSOLUTE EOSINOPHILS (test code = 05562-8) 0.08 K/UL See_Comment [Automated messa ge] The system which generated this result transmitted reference range: 0.00-0.50 K/UL. The reference range was not used to interpret this result as normal/abnormal. ABSOLUTE LYMPHOCYTES (test code = 59259-0) 1.63 K/UL See_Comment [Automated messa ge] The system which generated this result transmitted reference range: 1.00-4.00 K/UL. The reference range was not used to interpret this result as normal/abnormal. ABSOLUTE MONOCYTES (test code = 72991-1) 0.49 K/UL See_Comment [Automated messa ge] The system which generated this result transmitted reference range: 0.20-1.00 K/UL. The reference range was not used to interpret this result as normal/abnormal. ABSOLUTE NEUTROPHILS (test code = 10585-4) 3.45 K/UL See_Comment [Automated messa ge] The system which generated this result transmitted reference range: 1.50-7.50 K/UL. The reference range was not used to interpret this result as normal/abnormal. BASOPHILS (test code = 16338-7) 0.4 % EOSINOPHILS (test code = 84287-2) 1.4 % HEMATOCRIT (test code = 21657-6) 39.8 % See_Comment L [Automated messa ge] The system which generated this result transmitted reference range: 40.0-51.0 %. The reference range was not used to interpret this result as normal/abnormal. HEMOGLOBIN (test code = 718-7) 13.1 G/DL See_Comment L [Automated messa ge] The system which generated this result transmitted reference range: 13.5-17.0 G/DL. The reference range was not used to interpret this result as normal/abnormal. LYMPHOCYTES (test code = 15512-4) 28.6 % MCH (test code = 66280-8) 31.8 PG See_Comment [Automated messa ge] The system which generated this result transmitted reference range: 25.0-33.0 PG. The reference range was not used to interpret this result as normal/abnormal. MCHC (test code = 48668-4) 32.9 G/DL See_Comment [Automated messa ge] The system which generated this result transmitted reference range: 31.0-36.0 G/DL. The reference range was not used to interpret this result as normal/abnormal. MCV (test code = 62226-0) 96.6 fL See_Comment [Automated messa ge] The system which generated this result transmitted reference range: 80.0-99.0 fL. The reference range was not used to interpret this result as normal/abnormal. MONOCYTES (test code = 91197-1) 8.6 % NEUTROPHILS (test code = 55780-1) 60.5 % PLATELET COUNT (test code = 97045-1) 153 K/UL See_Comment [Automated messa ge] The system which generated this result transmitted reference range: 130-400 K/UL. The reference range was not used to interpret this result as normal/abnormal. RBC (test code = 03364-5) 4.12 M/UL See_Comment L [Automated messa ge] The system which generated this result transmitted reference range: 4.50-6.10 M/UL. The reference range was not used to interpret this result as normal/abnormal. RDW (test code = 93212-3) 13.4 % See_Comment [Automated messa ge] The system which generated this result transmitted reference range: 11.5-15.0 %. The reference range was not used to interpret this result as normal/abnormal. WBC (test code = 37759-1) 5.7 K/UL See_Comment [Automated messa ge] The system which generated this result transmitted reference range: 3.5-11.0 K/UL. The reference range was not used to interpret this result as normal/abnormal. CBC W/AUTO [id number] 00:00:00* Test Item Value Reference Range Interpretation Comme nts NUCLEATED RBCS (test code = 90735-2) 0.0 /100 WBC'S See_Comment [Automated messa ge] The system which generated this result transmitted reference range: 0.0 /100 WBC'S. The reference range was not used to interpret this result as normal/abnormal. ABSOLUTE EOSINOPHILS (test code = 94176-4) 0.21 K/UL See_Comment [Automated messa ge] The system which generated this result transmitted reference range: 0.00-0.50 K/UL. The reference range was not used to interpret this result as normal/abnormal. ABSOLUTE LYMPHOCYTES (test code = 91024-5) 1.57 K/UL See_Comment [Automated messa ge] The system which generated this result transmitted reference range: 1.00-4.00 K/UL. The reference range was not used to interpret this result as normal/abnormal. ABSOLUTE MONOCYTES (test code = 80963-4) 0.53 K/UL See_Comment [Automated messa ge] The system which generated this result transmitted reference range: 0.20-1.00 K/UL. The reference range was not used to interpret this result as normal/abnormal. ABSOLUTE NEUTROPHILS (test code = 74001-7) 4.05 K/UL See_Comment [Automated messa ge] The system which generated this result transmitted reference range: 1.50-7.50 K/UL. The reference range was not used to interpret this result as normal/abnormal. BASOPHILS (test code = 79605-2) 0.5 % EOSINOPHILS (test code = 24135-3) 3.3 % HEMATOCRIT (test code = 40288-5) 39.8 % See_Comment L [Automated messa ge] [...] result as normal/abnormal. LYMPHOCYTES (test code = 77098-8) 24.4 % MCH (test code = 14532-4) 32.0 PG See_Comment [Automated messa ge] The system which generated this result transmitted reference range: 25.0-33.0 PG. The reference range was not used to interpret this result as normal/abnormal. MCHC (test code = 11879-1) 34.2 G/DL See_Comment [Automated messa ge] The system which generated this result transmitted reference range: 31.0-36.0 G/DL. The reference range was not used to interpret this result as normal/abnormal. MCV (test code = 81313-8) 93.6 fL See_Comment [Automated messa ge] The system which generated this result transmitted reference range: 80.0-99.0 fL. The reference range was not used to interpret this result as normal/abnormal. MONOCYTES (test code = 43447-9) 8.2 % NEUTROPHILS (test code = 10900-6) 62.8 % PLATELET COUNT (test code = 34710-9) 181 K/UL See_Comment [Automated messa ge] The system which generated this result transmitted reference range: 130-400 K/UL. The reference range was not used to interpret this result as normal/abnormal. RBC (test code = 58544-2) 4.25 M/UL See_Comment L [Automated messa ge] The system which generated this result transmitted reference range: 4.50-6.10 M/UL. The reference range was not used to interpret this result as normal/abnormal. RDW (test code = 99109-0) 13.8 % See_Comment [Automated messa ge] The system which generated this result transmitted reference range: 11.5-15.0 %. The reference range was not used to interpret this result as normal/abnormal. WBC (test code = 96942-2) 6.4 K/UL See_Comment [Automated messa ge] The system which generated this result transmitted reference range: 3.5-11.0 K/UL. The reference range was not used to interpret this result as normal/abnormal.
--- NOTE | 2024-03-03 17:57 | RAD REPORT ---
EXAMINATION: CT HEAD WITHOUT CONTRAST CT CERVICAL SPINE WITHOUT CONTRAST CLINICAL INDICATION: Male, 83 years old. head trauma on eliquis TECHNIQUE: Axial CT images from the skull base to the vertex without intravenous contrast. Axial CT i mages through the cervical spine were obtained without intravenous contrast. Sagittal and coronal reformatted images were created from the data set. Coronal and sagittal reformatted images were creat ed from the data set. One or more of the following dose reduction techniques were used: Automated exposure control, adjustment of the mA and/or kV according to patient size, and/or iterative reconstr uction. Unless otherwise specified, incidental findings do not require dedicated imaging follow-up. [id number]. COMPARISON: 01/20/2022 FINDINGS: Head: INTRACRANIAL: No acute intracranial hemorrhage. No hydrocephalus. No mass effect or midline shift. Mi ld chronic small vessel ischemic changes. Cerebral atrophy. VASCULATURE: No visualized abnormalities in the arteries or dural venous sinuses. SCALP/SKULL: Left frontal scalp hematoma. No underlying skull fracture. SINUSES: The visualized paranasal sinuses and mastoid air cells are predominantly clear. Cervical spine: ALIGNMENT: The cervical spine has normal alignment without scoliosis or spondylolisthesis. BONE: Vertebral body heights are maintained. No aggressive osseous lesions. DEGENERATIVE CHANGES: Multilevel cervical spondylosis with varying degrees of neural foraminal narrow ing. No high-grade central spinal stenosis. SOFT TISSUE: No significant abnormalities in the soft tissue of the neck. The visualized lung apices are clear. IMPRESSION: No acute intracranial abnormality. No acute fracture or traumatic malalignment of the cervical spine.
--- NOTE | 2024-03-03 18:03 | EDPHYS ---
Physician Documentation [facility] Name: Cordell Patterson Age: 83 yrs Sex: Male : 1940 Arrival Date: 03/03/2024 Time: 16:05 Bed 4 Private MD: ED Physician Elder Cruz HPI: 03/03 16:57 This 83 yrs old Male presents to ER via Ambulatory with complaints of Head sb4 Injury-Adult. 16:57 The patient or guardian reports injury, pain, swelling, tenderness. The complaints sb4 affect the left side of forehead. Context of injury: The problem was sustained at home, resulted from a fall, slipped. Onset: The symptoms/episode began/occurred this morning. Associated signs and symptoms: The patient has no apparent associated signs or symptoms, Loss of consciousness: This patient did not experience any loss of consciousness. Pertinent negatives: the patient has not experienced a loss of conciousness, double vision, headache, neck pain, vomiting. The patient has not experienced similar symptoms in the past. Historical: - Allergies: 16:34 No Known Allergies; hb - Home Meds: 16:34 Eliquis oral [Active]; hb - PMHx: 16:34 coronary atherosclerosis; Hyperlipidemia; Hypertension; hb - PSHx: 16:34 heart stent; hb - Immunization history:: Adult Immunizations up to date. - Infectious Disease History:: Denies. - Social history:: Smoking status: Patient denies any tobacco usage or history of. ROS: 16:57 Constitutional: Negative for fever, chills, and weight loss, sb4 16:57 MS/extremity: Positive for per HPI, 16:57 All other systems are negative, Exam: 16:57 Constitutional: This is a well developed, well nourished patient who is awake, alert, sb4 and in no acute distress. Eyes: Extra-ocular motions intact. Periorbital areas with no swelling, redness, or edema. ENT: Mucous membranes moist. Cardiovascular: Regular rate and rhythm with a normal S1 and S2. Respiratory: No increased work of breathing, no retractions or nasal flaring. Abdomen/GI: Soft, non-tender, no distension. Skin: Warm, dry with normal turgor. Normal color with no rashes, no lesions, and no evidence of cellulitis. 16:57 Head/face: Noted is hematoma, that is moderate, of the left side of forehead, Vital Signs: 16:33 BP 156 / 67; Pulse 54; Resp 16; Temp 98.6; Pulse Ox 100% on R/A; Pain 3/10; hb 18:17 BP 151 / 61; Pulse 56; Resp 17; Pulse Ox 100% ; Pain 0/10; ll1 16:33 Pain Scale: Adult hb 18:17 Pain Scale: Adult ll1 [place] Coma Score: 16:33 Eye Response: spontaneous(4). Motor Response: obeys commands(6). Verbal Response: hb oriented(5). Total: 15. 16:57 Eye Response: spontaneous(4). Motor Response: obeys commands(6). Verbal Response: sb4 oriented(5). Total: 15. 17:29 Eye Response: spontaneous(4). Motor Response: obeys commands(6). Verbal Response: sb4 oriented(5). Total: 15. MDM: 16:34 Medical Screening Exam initiated sb4 17:29 Data reviewed: vital signs, nurses notes, radiologic studies, and as a result, I will sb4 discharge patient. Counseling: I had a detailed discussion with the patient and/or guardian regarding the historical points, exam findings, and any diagnostic results supporting the discharge/admit diagnosis, radiology results, to return to the emergency department if symptoms worsen or persist or if there are any questions or concerns that arise at home. 03/03 16:35 Order name: Head C Spine MPR Wo Con CT; Complete Time: 17:59 sb4 Administered Medications: No medications were administered Disposition: 21:27 Co-signature as Attending Physician, Elder Cruz MD I agree with the assessment and aidee plan of care. Disposition Summary: 03/03/24 18:02 Discharge Ordered Notes: Location: Home sb4 Problem: new sb4 Symptoms: have improved sb4 Condition: Stable sb4 Diagnosis - Unspecified injury of head, initial encounter - forehead contusion/hematoma sb4 Followup: sb4 - With: Emergency Department - When: As needed - Reason: Trouble breathing, Worsening of condition Discharge Instructions: - Discharge Summary Sheet sb4 - Head Injury, Adult, [id number] sb4 - Facial or Scalp Contusion, [id number] sb4 Forms: - Patient Portal Instructions sb4 - Leadership Thank You Letter sb4 Signatures: [employer] Elder Stratton MD MD cha Baxter, Heather, RICKEY RN Hannah Pink, EZRA MUNGUIA sb4
--- NOTE | 2024-03-03 18:03 | ER ---
Nurse's Notes [facility] Name: Cordell Patterson Age: 83 yrs Sex: Male : 1940 Arrival Date: 03/03/2024 Time: 16:05 Bed 4 Private MD: Diagnosis: Unspecified injury of head, initial encounter-forehead contusion/hematoma Presentation: 03/03 16:33 Chief complaint: Slipped in shower and hit head on side of tub this morning. Contusion hb noted to left forehead. Takes Eliquis. Coronavirus screen: At this time, the client does not indicate any symptoms associated with coronavirus-19. Ebola Screen: No symptoms or risks identified at this time. Initial Sepsis Screen: Does the patient meet any 2 criteria? No. Patient's initial sepsis screen is negative. Does the patient have a suspected source of infection? No. Patient's initial sepsis screen is negative. Risk Assessment: Do you want to hurt yourself or someone else? Patient reports no desire to harm self or others. Onset of symptoms was March 03, 2024. 16:33 Method Of Arrival: Ambulatory hb 16:33 Acuity: [place] 3 hb 18:18 Mechanism of Injury: resulted from a fall. ll1 Triage Assessment: 18:18 General: Appears in no apparent distress. Neuro: Level of Consciousness is awake, alert.ll1 Historical: - Allergies: 16:34 No Known Allergies; hb - Home Meds: 16:34 Eliquis oral [Active]; hb - PMHx: 16:34 coronary atherosclerosis; Hyperlipidemia; Hypertension; hb - PSHx: 16:34 heart stent; hb - Immunization history:: Adult Immunizations up to date. - Infectious Disease History:: Denies. - Social history:: Smoking status: Patient denies any tobacco usage or history of. Screenin:29 [facility] ED Fall Risk Assessment (Adult) History of falling in the last 3 months, ll1 including since admission Yes- single mechanical fall (1 pt) Confusion or Disorientation No (0 pts) Intoxicated or Sedated No (0 pts) Impaired Gait Yes (1 pt) Mobility Assist Device Used Yes (1 pt) Altered Elimination No (0 pt) Score/Fall Risk Level 3 or more points = High Risk Maintained a safe environment, Hourly rounding (assess needs \T\ fall precautionary measures) done. Abuse screen: Denies threats or abuse. Nutritional screening: No deficits noted. Tuberculosis screening: No symptoms or risk factors identified. Assessment: 17:29 General: Appears in no apparent distress. Behavior is calm, cooperative, appropriate ll1 for age. Pain: Complains of pain in left side of forehead Quality of pain is described as aching. Neuro: Reports headache in left frontal area. 18:17 Reassessment: No changes from previously documented assessment. Patient and/or family ll1 updated on plan of care and expected duration. Pain level reassessed. Patient is alert, oriented x 3, equal unlabored respirations, skin warm/dry/pink. Vital Signs: 16:33 BP 156 / 67; Pulse 54; Resp 16; Temp 98.6; Pulse Ox 100% on R/A; Pain 3/10; hb 18:17 BP 151 / 61; Pulse 56; Resp 17; Pulse Ox 100% ; Pain 0/10; ll1 16:33 Pain Scale: Adult hb 18:17 Pain Scale: Adult ll1 Piyush Coma Score: 16:33 Eye Response: spontaneous(4). Motor Response: obeys commands(6). Verbal Response: hb oriented(5). Total: 15. 16:57 Eye Response: spontaneous(4). Motor Response: obeys commands(6). Verbal Response: sb4 oriented(5). Total: 15. 17:29 Eye Response: spontaneous(4). Motor Response: obeys commands(6). Verbal Response: sb4 oriented(5). Total: 15. ED Course: 16:10 Patient arrived in ED. al6 16:10 Hannah Castro PA-C is PHCP. sb4 16:10 Elder Cruz MD is Attending Physician. sb4 16:34 Triage completed. hb 16:34 Arm band placed on. hb 17:29 Rory Melgar, RICKEY is Primary Nurse. ll1 17:29 Patient placed in an exam room, on a stretcher. ll1 17:30 Provided Education on: ER procedures and process. ll1 17:46 Head C Spine MPR Wo Con CT In Process Unspecified. EDMS 18:18 Patient has correct armband on for positive identification. Bed in low position. Call ll1 light in reach. Cardiac monitoring not applicable on this patient. 18:18 No provider procedures requiring assistance completed. Patient did not have IV access ll1 during this emergency room visit. Administered Medications: No medications were administered Medication: 17:30 VIS not applicable for this client. ll1 Outcome: 18:02 Discharge ordered by MD. whitman 18:18 Discharged to home ambulatory, ll1 18:18 Condition: stable 18:18 Discharge instructions given to patient, family, Instructed on discharge instructions, follow up and referral plans. Demonstrated understanding of instructions, follow-up care, 18:18 Patient left the ED. ll1 Signatures: [employer] EDMS Yakelin Head RN Rory Peoples RN RN ll1 Hannah Castro, PA-C PA-C Melody Chowdhury
[2024-03-03 19:40] VITALS: TEMP 98.6; O2SAT 100
[2024-03-03 19:41] VITALS: BP 151/61
== END 2024-03-03 18:18 | disposition home or self-care (01) ==
LOC: ER 16:05
DX: S00.83XA Contusion of other part of head, initial encounter (principal); W01.0XXA Fall on same level from slipping, tripping and stumbling without subsequent striking against object, initial encounter
CPT/HCPCS: 70450; 72125; 99282

== ENCOUNTER 2024-06-28 08:35 | Emergency (ER) | payer OTHER ==
--- OUTSIDE RECORDS SUMMARY | 2024-06-28 08:39 | XMS REPORT | Continuity of Care Document ---
Author Name Unknown Address [address] [place] [id number] [place] [address] [facility] Address [address] [place] [id number] Care Team Providers Care Hide Spreader Name Role Phone Tl Griffiths Attending Clinician Unavailable Belle Luna Attending Clinician Unavailable Payers Payer Name Policy Type Policy Number Effective Date Expirati on Date Source [employer] MED[employer]ARE PPO 53 [id number] 2020 00:00:00 [facility] Problems Condition Name Condition Details Condition Category Status Onset Date Resolution Date Last Treatment Date Treating Clinician Comments Source [id number] Closed displaced comminuted fracture of left patella with routine healing, subsequent encounter Problem [facility] [id number] Nondisplac ed fracture of left radial styloid process, initial encounter for closed fracture Problem [facility] [id number] Pain in joint of left wrist Problem [facility] [id number] Closed Colles' fracture of left radius with routine healing, subsequent encounter Problem [facility] [id number] Unilateral primary osteoarthr itis, left knee Problem [facility] [id number] Pain, joint, knee, left Problem [facility] [id number] Coronary artery disease involving [place] coronary artery of [place] heart without angina pectoris Problem [facility] [id number] Mixed hyperlipid emia Problem [facility] [id number] Vitamin D deficiency Problem [facility] [id number] Essential hypertensi on Problem [facility] [id number] Controlled type 2 diabetes mellitus without complicati on, without long-term current use of insulin Problem [facility] [id number] Atrial fibrillati on with RVR Problem [facility] Anemia Anemia, unspecifie d type Problem [facility] Overweight Overweight Problem [facility] [id number] 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 Ordering Clinician Indication Dosage Frequency Signature (SIG) Comments Components Source LIDOCAINE HCL 10MG/ML LIDOCAINE HCL 10MG/ML 05-18 00:00: 00 No 10mg [facility] Depo Medrol (40mg) Depo Medrol (40mg) 05-18 00:00: 00 No 40mg [facility] metFORMIN HCl ER 500 MG metFORMIN [...] No Co Q 10 100 MG Aspirin Adult Low Strength 81 MG Aspirin Adult Low Strength 81 MG No 1{table t} QD Aspirin Adult Low Strength 81 MG Immunizations Ordered Immunization Name Filled Immunization Name Date Status Comments Source Moderna COVID-19 Vaccine, Bivalent Moderna COVID-19 Vaccine, Bivalent 2021-12-11 17:25:00 Completed [facility] Moderna COVID-19 Vaccine, Bivalent Moderna COVID-19 Vaccine, Bivalent 2021-12-11 17:25:00 Completed [facility] Moderna COVID-19 Vaccine, Bivalent Moderna COVID-19 Vaccine, Bivalent 2021-12-11 17:25:00 Completed [facility] Moderna COVID-19 Vaccine, Bivalent Moderna COVID-19 Vaccine, Bivalent 2021-12-11 17:25:00 Completed [facility] Moderna COVID-19 Vaccine, Bivalent Moderna COVID-19 Vaccine, Bivalent 2021-12-11 17:25:00 Completed [facility] Moderna COVID-19 Vaccine, Bivalent Moderna COVID-19 Vaccine, Bivalent 2021-12-11 17:25:00 Completed [facility] Moderna COVID-19 Vaccine, Bivalent Moderna COVID-19 Vaccine, Bivalent 2021-12-11 17:25:00 Completed [facility] FLUZONE HIGH DOSE OVER 65 FLUZONE HIGH DOSE OVER 65 2021-11-29 17:25:00 Completed [facility] FLUZONE HIGH DOSE OVER 65 FLUZONE HIGH DOSE OVER 65 2021-11-29 17:25:00 Completed [facility] FLUZONE HIGH DOSE OVER 65 FLUZONE HIGH DOSE OVER 65 2021-11-29 17:25:00 Completed [facility] FLUZONE HIGH DOSE OVER 65 FLUZONE HIGH DOSE OVER 65 2021-11-29 17:25:00 Completed [facility] FLUZONE HIGH DOSE OVER 65 FLUZONE HIGH DOSE OVER 65 2021-11-29 17:25:00 Completed [facility] FLUZONE HIGH DOSE OVER 65 FLUZONE HIGH DOSE OVER 65 2021-11-29 17:25:00 Completed [facility] FLUZONE HIGH DOSE OVER 65 FLUZONE HIGH DOSE OVER 65 2021-11-29 17:25:00 Completed [facility] LIDOCAINE HCL 10MG/ML LIDOCAINE HCL 10MG/ML 2018-05-18 09:28:00 Completed [facility] Depo Medrol (40mg) Depo Medrol (40mg) 2018-05-18 09:27:00 Completed [facility] Moderna COVID-19 Vaccine, Bivalent Moderna COVID-19 Vaccine, Bivalent Unknown Completed [facility] FLUZONE HIGH DOSE OVER 65 FLUZONE HIGH DOSE OVER 65 Unknown Completed [facility] Moderna COVID-19 Vaccine, Bivalent Moderna COVID-19 Vaccine, Bivalent Unknown Completed [facility] FLUZONE HIGH DOSE OVER 65 FLUZONE HIGH DOSE OVER 65 Unknown Completed [facility] Moderna COVID-19 Vaccine, Bivalent Moderna COVID-19 Vaccine, Bivalent Unknown Completed [facility] FLUZONE HIGH DOSE OVER 65 FLUZONE HIGH DOSE OVER 65 Unknown Completed [facility] Moderna COVID-19 Vaccine, Bivalent Moderna COVID-19 Vaccine, Bivalent Unknown Completed [facility] FLUZONE HIGH DOSE OVER 65 FLUZONE HIGH DOSE OVER 65 Unknown Completed [facility] Moderna COVID-19 Vaccine, Bivalent Moderna COVID-19 Vaccine, Bivalent Unknown Completed [facility] FLUZONE HIGH DOSE OVER 65 FLUZONE HIGH DOSE OVER 65 Unknown Completed [facility] Moderna COVID-19 Vaccine, Bivalent Moderna COVID-19 Vaccine, Bivalent Unknown Completed [facility] FLUZONE HIGH DOSE OVER 65 FLUZONE HIGH DOSE OVER 65 Unknown Completed [facility] Moderna COVID-19 Vaccine, Bivalent Moderna COVID-19 Vaccine, Bivalent Unknown Completed [facility] FLUZONE HIGH DOSE OVER 65 FLUZONE HIGH DOSE OVER 65 Unknown Completed [facility] Moderna COVID-19 Vaccine, Bivalent Moderna COVID-19 Vaccine, Bivalent Unknown Completed [facility] FLUZONE HIGH DOSE OVER 65 FLUZONE HIGH DOSE OVER 65 Unknown Completed [facility] Moderna COVID-19 Vaccine, Bivalent Moderna COVID-19 Vaccine, Bivalent Unknown Completed [facility] FLUZONE HIGH DOSE OVER 65 FLUZONE HIGH DOSE OVER 65 Unknown Completed [facility] Moderna COVID-19 Vaccine, Bivalent Moderna COVID-19 Vaccine, Bivalent Unknown Completed [facility] FLUZONE HIGH DOSE OVER 65 FLUZONE HIGH DOSE OVER 65 Unknown Completed [facility] Vital Signs Vital Name Observation Time Observation Value Comments Laney gudino height 2024-02-23 08:30:00 65.50 [in_i] Com [facility] weight 2024-02-23 08:30:00 175.6 [lb_av] Co [facility] temperature 2024-02-23 08:30:00 97.3 [degF] Com [facility] bmi 2024-02-23 08:30:00 28.77 kg/m2 Comm [facility] oximetry 2024-02-23 08:30:00 97 % [facility] respiratory rate 2024-02-23 08:30:00 16 /min [facility] blood pressure systolic 2024-02-23 08:30:00 128 mm[Hg] [facility] blood pressure diastolic 2024-02-23 08:30:00 78 mm[Hg] [facility] height 2023-10-24 08:50:00 65.50 [in_i] Com [facility] weight 2023-10-24 08:50:00 168.8 [lb_av] Co [facility] temperature 2023-10-24 08:50:00 97.2 [degF] Com [facility] bmi 2023-10-24 08:50:00 27.66 kg/m2 Comm on [facility] oximetry 2023-10-24 08:50:00 98 % [facility] blood pressure systolic 2023-10-24 08:50:00 136 mm[Hg] [facility] blood pressure diastolic 2023-10-24 08:50:00 64 mm[Hg] [facility] height 2023-10-24 08:50:00 65.50 [in_i] Com [facility] weight 2023-10-24 08:50:00 168.8 [lb_av] [facility] temperature 2023-10-24 08:50:00 97.2 [degF] Com [facility] bmi 2023-10-24 08:50:00 27.66 kg/m2 Comm on [facility] oximetry 2023-10-24 08:50:00 98 % [facility] blood pressure systolic 2023-10-24 08:50:00 136 mm[Hg] [facility] blood pressure diastolic 2023-10-24 08:50:00 64 mm[Hg] [facility] height 2023-10-24 09:00:00 65.50 [in_i] Com [facility] weight 2023-10-24 09:00:00 168.8 [lb_av] [facility] temperature 2023-10-24 09:00:00 97.2 [degF] Com [facility] bmi 2023-10-24 09:00:00 27.66 kg/m2 Comm on [facility] oximetry 2023-10-24 09:00:00 98 % [facility] respiratory rate 2023-10-24 09:00:00 17 /min [facility] blood pressure systolic 2023-10-24 09:00:00 136 mm[Hg] [facility] blood pressure diastolic 2023-10-24 09:00:00 64 mm[Hg] [facility] height 2023-06-21 08:50:00 65.50 [in_i] Com [facility] weight 2023-06-21 08:50:00 169.6 [lb_av] [facility] temperature 2023-06-21 08:50:00 97.2 [degF] Com [facility] bmi 2023-06-21 08:50:00 27.79 kg/m2 Comm on [facility] oximetry 2023-06-21 08:50:00 98 % [facility] blood pressure systolic 2023-06-21 08:50:00 137 mm[Hg] [facility] blood pressure diastolic 2023-06-21 08:50:00 67 mm[Hg] [facility] height 2023-03-21 08:30:00 65.50 [in_i] Com [facility] weight 2023-03-21 08:30:00 174.8 [lb_av] [facility] 2023-03-21 08:30:00 97.5 [degF] Com [facility] bmi 2023-03-21 08:30:00 28.64 kg/m2 Comm on [facility] oximetry 2023-03-21 08:30:00 99 % [facility] blood pressure systolic 2023-03-21 08:30:00 138 mm[Hg] [facility] blood pressure diastolic 2023-03-21 08:30:00 62 mm[Hg] Common [facility] height 2022-11-18 08:30:00 65.50 [in_i] Com [facility] weight 2022-11-18 08:30:00 173.6 [lb_av] [facility] 2022-11-18 08:30:00 97.9 [degF] Com [facility] bmi 2022-11-18 08:30:00 28.45 kg/m2 Comm on [facility] oximetry 2022-11-18 08:30:00 97 % [facility] respiratory rate 2022-11-18 08:30:00 17 /min [facility] blood pressure systolic 2022-11-18 08:30:00 137 mm[Hg] [facility] blood pressure diastolic 2022-11-18 08:30:00 68 mm[Hg] [facility] height 2022-11-18 08:40:00 65.50 [in_i] Com [facility] weight 2022-11-18 08:40:00 173.6 [lb_av] [facility] temperature 2022-11-18 08:40:00 97.9 [degF] Com [facility] bmi 2022-11-18 08:40:00 28.45 kg/m2 Comm on [facility] oximetry 2022-11-18 08:40:00 97 % [facility] respiratory rate 2022-11-18 08:40:00 17 /min [facility] blood pressure systolic 2022-11-18 08:40:00 137 mm[Hg] [facility] blood pressure diastolic 2022-11-18 08:40:00 68 mm[Hg] [facility] height 2022-08-18 11:20:00 65.50 [in_i] Com [facility] weight 2022-08-18 11:20:00 173.6 [lb_av] [facility] 2022-08-18 11:20:00 98.1 [degF] Com [facility] bmi 2022-08-18 11:20:00 28.45 kg/m2 Comm on [facility] oximetry 2022-08-18 11:20:00 98 % [facility] respiratory rate 2022-08-18 11:20:00 18 /min [facility] blood pressure systolic 2022-08-18 11:20:00 140 mm[Hg] [facility] blood pressure diastolic 2022-08-18 11:20:00 64 mm[Hg] [facility] height 2022-05-10 13:30:00 65.50 [in_i] Com [facility] weight 2022-05-10 13:30:00 171.0 [lb_av] Co [facility] temperature 2022-05-10 13:30:00 97.0 [degF] Com [facility] bmi 2022-05-10 13:30:00 28.02 kg/m2 Comm on [facility] oximetry 2022-05-10 13:30:00 98 % [facility] respiratory rate 2022-05-10 13:30:00 17 /min [facility] blood pressure systolic 2022-05-10 13:30:00 138 mm[Hg] [facility] blood pressure diastolic 2022-05-10 13:30:00 67 mm[Hg] Common [facility] height 2022-03-10 09:15:00 65.50 [in_i] Com [facility] weight 2022-03-10 09:15:00 174 [lb_av] Comm on [facility] temperature 2022-03-10 09:15:00 98.4 [degF] Com [facility] bmi 2022-03-10 09:15:00 28.51 kg/m2 Comm on [facility] blood pressure systolic 2022-03-10 09:15:00 134 mm[Hg] [facility] blood pressure diastolic 2022-03-10 09:15:00 78 mm[Hg] Common [facility] height 2022-02-24 10:00:00 65.50 [in_i] Com [facility] weight 2022-02-24 10:00:00 172 [lb_av] Comm on [facility] temperature 2022-02-24 10:00:00 98.5 [degF] Com [facility] bmi 2022-02-24 10:00:00 28.18 kg/m2 Comm on [facility] blood pressure systolic 2022-02-24 10:00:00 128 mm[Hg] [facility] blood pressure diastolic 2022-02-24 10:00:00 81 mm[Hg] Common [facility] height 2022-02-10 09:00:00 65.50 [in_i] Com [facility] weight 2022-02-10 09:00:00 172 [lb_av] Comm on [facility] temperature 2022-02-10 09:00:00 98.6 [degF] Com [facility] bmi 2022-02-10 09:00:00 28.18 kg/m2 Comm on [facility] blood pressure systolic 2022-02-10 09:00:00 132 mm[Hg] Common [facility] blood pressure diastolic 2022-02-10 09:00:00 70 mm[Hg] Common [facility] height 2022-01-21 10:30:00 65.50 [in_i] Com [facility] weight 2022-01-21 10:30:00 172.2 [lb_av] [facility] 2022-01-21 10:30:00 97.6 [degF] Com [facility] bmi 2022-01-21 10:30:00 28.22 kg/m2 Comm on [facility] blood pressure systolic 2022-01-21 10:30:00 130 mm[Hg] [facility] blood pressure diastolic 2022-01-21 10:30:00 62 mm[Hg] [facility] height 2021-11-19 10:20:00 65.50 [in_i] Com [facility] weight 2021-11-19 10:20:00 172.2 [lb_av] [facility] temperature 2021-11-19 10:20:00 97.3 [degF] Com [facility] bmi 2021-11-19 10:20:00 28.22 kg/m2 Comm on [facility] oximetry 2021-11-19 10:20:00 98 % [facility] respiratory rate 2021-11-19 10:20:00 16 /min [facility] blood pressure systolic 2021-11-19 10:20:00 130 mm[Hg] [facility] blood pressure diastolic 2021-11-19 10:20:00 62 mm[Hg] Common [facility] height 2021-11-19 10:20:00 65.50 [in_i] Com [facility] weight 2021-11-19 10:20:00 172.2 [lb_av] [facility] temperature 2021-11-19 10:20:00 97.3 [degF] Com [facility] bmi 2021-11-19 10:20:00 28.22 kg/m2 Comm on [facility] oximetry 2021-11-19 10:20:00 98 % [facility] respiratory rate 2021-11-19 10:20:00 16 /min [facility] blood pressure systolic 2021-11-19 10:20:00 130 mm[Hg] [facility] blood pressure diastolic 2021-11-19 10:20:00 62 mm[Hg] Common [facility] height 2021-09-24 08:20:00 65.50 [in_i] Com [facility] weight 2021-09-24 08:20:00 172.4 [lb_av] [facility] temperature 2021-09-24 08:20:00 97.2 [degF] Com [facility] bmi 2021-09-24 08:20:00 28.25 kg/m2 Comm on [facility] oximetry 2021-09-24 08:20:00 98 % [facility] respiratory rate 2021-09-24 08:20:00 16 /min [facility] blood pressure systolic 2021-09-24 08:20:00 136 mm[Hg] Common [facility] blood pressure diastolic 2021-09-24 08:20:00 72 mm[Hg] Common [facility] height 2021-03-26 08:20:00 68 [in_i] Commo n [facility] weight 2021-03-26 08:20:00 172 [lb_av] Comm on [facility] temperature 2021-03-26 08:20:00 96.4 [degF] Com [facility] bmi 2021-03-26 08:20:00 26.15 kg/m2 Comm on [facility] oximetry 2021-03-26 08:20:00 99 % Com[facility] respiratory rate 2021-03-26 08:20:00 24 /min [facility] blood pressure systolic 2021-03-26 08:20:00 138 mm[Hg] [facility] blood pressure diastolic 2021-03-26 08:20:00 78 mm[Hg] Common [facility] height 2020-07-15 15:20:00 68 [in_i] Com[facility] weight 2020-07-15 15:20:00 176.0 [lb_av] Co [facility] temperature 2020-07-15 15:20:00 97.3 [degF] Com mon [facility] bmi 2020-07-15 15:20:00 26.76 kg/m2 Comm on [facility] oximetry 2020-07-15 15:20:00 97 % [facility] respiratory rate 2020-07-15 15:20:00 16 /min [facility] blood pressure systolic 2020-07-15 15:20:00 156 mm[Hg] [facility] blood pressure diastolic 2020-07-15 15:20:00 74 mm[Hg] [facility] Encounters Start Date/Time End Date/Time Encounter Type Admission Type Attending [facility] Care Facility Care Department Encounter ID Source 2022-11-16 08:03:00 Outpatient Carlos Manuel Griffithsh [facility] [id number] [facility] 2022-08-10 11:24:00 Outpatient Carlos Manuel Griffithsh [facility] [id number] [facility] 2022-01-21 08:39:01 Outpatient Luna, Na [facility] [id number] [facility] 2021-11-17 10:22:02 Outpatient Luna, Na [facility] [id number] [facility] 2021-09-22 13:16:01 Outpatient Luna, Na [facility] [id number] [facility] 2021-04-01 14:37:38 Outpatient Luna, Na [facility] [id number] [facility] 2021-04-01 13:27:39 Outpatient Luna, Na [facility] [id number] [facility] 2021-04-01 13:05:35 Outpatient Luna, Na [facility] [id number] [facility] 2021-04-01 13:04:59 Outpatient Belle Luna [facility] [id number] [facility] 2024-05-18 00:00:00 2024-05-18 00:00:00 (TEL) [facility] [id number] [facility] 2024-05-18 00:00:00 2024-05-18 00:00:00 (TEL) [facility] [id number] [facility] 2024-02-23 00:00:00 2024-02-23 00:00:00 OFFICE VISIT ESTAB PT LEVEL 4 [facility] [id number] [facility] 2023-10-24 00:00:00 2023-10-24 00:00:00 OFFICE VISIT ESTAB PT LEVEL 4 [facility] [id number] [facility] 2023-10-24 00:00:00 2023-10-24 00:00:00 SUB ANNUAL MCR WELLNESS VISIT [facility] [id number] [facility] 2023-06-21 00:00:00 2023-06-21 00:00:00 OFFICE VISIT ESTAB PT LEVEL 4 [facility] [id number] [facility] 2023-03-21 00:00:00 2023-03-21 00:00:00 (ESTPT) Establishe d Patient [facility] [id number] [facility] 2023-03-21 00:00:00 2023-03-21 00:00:00 (TEL) [facility] [id number] [facility] 2022-11-18 00:00:00 2022-11-18 00:00:00 OFFICE VISIT ESTAB PT LEVEL 4 [facility] [id number] [facility] 2022-11-18 00:00:00 2022-11-18 00:00:00 SUB ANNUAL MCR WELLNESS VISIT [facility] [id number] [facility] 2022-09-28 00:00:00 2022-09-28 00:00:00 (TEL) [facility]C [facility] [id number] [facility] 2022-09-27 00:00:00 2022-09-27 00:00:00 (TEL) [facility] [id number] [facility] 2022-08-18 00:00:00 2022-08-18 00:00:00 OFFICE VISIT ESTAB PT LEVEL 4 [facility] [id number] [facility] 2022-08-10 00:00:00 2022-08-10 00:00:00 (TEL) [facility] [id number] [facility] 2022-05-10 00:00:00 2022-05-10 00:00:00 OFFICE VISIT ESTAB PT LEVEL 4 [facility] [id number] [facility] 2022-03-10 00:00:00 2022-03-10 00:00:00 NON-BILLAB LE VISIT [facility]C [facility] [id number] [facility] 2022-02-24 00:00:00 2022-02-24 00:00:00 NON-BILLAB LE VISIT [facility] [id number] [facility] 2022-02-10 00:00:00 2022-02-10 00:00:00 NON-BILLAB LE VISIT [facility] [id number] [facility] 2022-02-04 00:00:00 2022-02-04 00:00:00 (TEL) [facility]C [facility] [id number] [facility] 2022-01-25 00:00:00 2022-01-25 00:00:00 (TEL) [facility] [id number] [facility] 2022-01-21 00:00:00 2022-01-21 00:00:00 OFFICE VISIT NEW PT LEVEL 3 [facility] [id number] [facility] 2021-11-19 00:00:00 2021-11-19 00:00:00 SUB ANNUAL MCR WELLNESS VISIT [facility] [id number] [facility] 2021-11-19 00:00:00 2021-11-19 00:00:00 NO CHARGE [facility]C [facility] [id number] [facility] 2021-09-24 00:00:00 2021-09-24 00:00:00 OFFICE VISIT ESTAB PT LEVEL 4 [facility] [id number] [facility] 2021-03-26 00:00:00 2021-03-26 00:00:00 OFFICE VISIT ESTAB PT LEVEL 4 [facility] [id number] [facility] 2021-02-23 00:00:00 2021-02-23 00:00:00 (TEL) [facility] [id number] [facility] 2020-12-22 00:00:00 2020-12-22 00:00:00 (TEL) [facility] [id number] [facility] 2020-09-23 00:00:00 2020-09-23 00:00:00 Outpatient [facility] [id number] [facility] 2020-09-23 00:00:00 2020-09-23 00:00:00 Outpatient [facility] [id number] [facility] 2020-09-23 00:00:00 2020-09-23 00:00:00 Outpatient [facility] [id number] [facility] 2020-07-15 00:00:00 2020-07-15 00:00:00 OFFICE VISIT NEW PT LEVEL 4 [facility] [id number] [facility] Results Test Description Test Time Test Comments Results Result Co mments Source HEMOGLOBIN [id number] 00:00:00* Test Item Value Reference Range Interpretation Comme nts HEMOGLOBIN A1c (test code = 4548-4) 6.8 % See_Comment H [Automated messa ge] The system which generated this result transmitted reference range: 4.2-5.6 %. The reference range was not used to interpret this result as normal/abnormal. CBC W/AUTO [id number] 00:00:00* Test Item Value Reference Range Interpretation Comme nts NUCLEATED RBCS (test code = 46610-4) 0.0 /100 WBC'S See_Comment [Automated messa ge] The system which generated this result transmitted reference range: 0.0 /100 WBC'S. The reference range was not used to interpret this result as normal/abnormal. ABSOLUTE EOSINOPHILS (test code = 12652-4) 0.08 K/UL See_Comment [Automated messa ge] The system which generated this result transmitted reference range: 0.00-0.50 K/UL. The reference range was not used to interpret this result as normal/abnormal. ABSOLUTE LYMPHOCYTES (test code = 85964-3) 1.63 K/UL See_Comment [Automated messa ge] The system which generated this result transmitted reference range: 1.00-4.00 K/UL. The reference range was not used to interpret this result as normal/abnormal. ABSOLUTE MONOCYTES (test code = 57815-2) 0.49 K/UL See_Comment [Automated messa ge] The system which generated this result transmitted reference range: 0.20-1.00 K/UL. The reference range was not used to interpret this result as normal/abnormal. ABSOLUTE NEUTROPHILS (test code = 70546-8) 3.45 K/UL See_Comment [Automated messa ge] The system which generated this result transmitted reference range: 1.50-7.50 K/UL. The reference range was not used to interpret this result as normal/abnormal. BASOPHILS (test code = 04769-4) 0.4 % EOSINOPHILS (test code = 15335-9) 1.4 % HEMATOCRIT (test code = 82792-0) 39.8 % See_Comment L [Automated messa ge] [...] result as normal/abnormal. LYMPHOCYTES (test code = 51505-8) 28.6 % MCH (test code = 98818-2) 31.8 PG See_Comment [Automated messa ge] The system which generated this result transmitted reference range: 25.0-33.0 PG. The reference range was not used to interpret this result as normal/abnormal. MCHC (test code = 71898-2) 32.9 G/DL See_Comment [Automated messa ge] The system which generated this result transmitted reference range: 31.0-36.0 G/DL. The reference range was not used to interpret this result as normal/abnormal. MCV (test code = 59779-9) 96.6 fL See_Comment [Automated messa ge] The system which generated this result transmitted reference range: 80.0-99.0 fL. The reference range was not used to interpret this result as normal/abnormal. MONOCYTES (test code = 16952-7) 8.6 % NEUTROPHILS (test code = 28896-3) 60.5 % PLATELET COUNT (test code = 72332-1) 153 K/UL See_Comment [Automated messa ge] The system which generated this result transmitted reference range: 130-400 K/UL. The reference range was not used to interpret this result as normal/abnormal. RBC (test code = 63542-0) 4.12 M/UL See_Comment L [Automated messa ge] The system which generated this result transmitted reference range: 4.50-6.10 M/UL. The reference range was not used to interpret this result as normal/abnormal. RDW (test code = 92088-6) 13.4 % See_Comment [Automated messa ge] The system which generated this result transmitted reference range: 11.5-15.0 %. The reference range was not used to interpret this result as normal/abnormal. WBC (test code = 69152-5) 5.7 K/UL See_Comment [Automated messa ge] The system which generated this result transmitted reference range: 3.5-11.0 K/UL. The reference range was not used to interpret this result as normal/abnormal. CBC W/AUTO [id number] 00:00:00* Test Item Value Reference Range Interpretation Comme nts NUCLEATED RBCS (test code = 00712-4) 0.0 /100 WBC'S See_Comment [Automated messa ge] The system which generated this result transmitted reference range: 0.0 /100 WBC'S. The reference range was not used to interpret this result as normal/abnormal. ABSOLUTE EOSINOPHILS (test code = 34451-2) 0.21 K/UL See_Comment [Automated messa ge] The system which generated this result transmitted reference range: 0.00-0.50 K/UL. The reference range was not used to interpret this result as normal/abnormal. ABSOLUTE LYMPHOCYTES (test code = 88688-1) 1.57 K/UL See_Comment [Automated messa ge] The system which generated this result transmitted reference range: 1.00-4.00 K/UL. The reference range was not used to interpret this result as normal/abnormal. ABSOLUTE MONOCYTES (test code = 00276-0) 0.53 K/UL See_Comment [Automated messa ge] The system which generated this result transmitted reference range: 0.20-1.00 K/UL. The reference range was not used to interpret this result as normal/abnormal. ABSOLUTE NEUTROPHILS (test code = 83653-4) 4.05 K/UL See_Comment [Automated messa ge] The system which generated this result transmitted reference range: 1.50-7.50 K/UL. The reference range was not used to interpret this result as normal/abnormal. BASOPHILS (test code = 53037-1) 0.5 % EOSINOPHILS (test code = 98363-6) 3.3 % HEMATOCRIT (test code = 58653-3) 39.8 % See_Comment L [Automated messa ge] [...] result as normal/abnormal. LYMPHOCYTES (test code = 60812-3) 24.4 % MCH (test code = 18384-4) 32.0 PG See_Comment [Automated messa ge] The system which generated this result transmitted reference range: 25.0-33.0 PG. The reference range was not used to interpret this result as normal/abnormal. MCHC (test code = 47951-7) 34.2 G/DL See_Comment [Automated messa ge] The system which generated this result transmitted reference range: 31.0-36.0 G/DL. The reference range was not used to interpret this result as normal/abnormal. MCV (test code = 68616-2) 93.6 fL See_Comment [Automated messa ge] The system which generated this result transmitted reference range: 80.0-99.0 fL. The reference range was not used to interpret this result as normal/abnormal. MONOCYTES (test code = 19149-5) 8.2 % NEUTROPHILS (test code = 97328-5) 62.8 % PLATELET COUNT (test code = 83066-0) 181 K/UL See_Comment [Automated messa ge] The system which generated this result transmitted reference range: 130-400 K/UL. The reference range was not used to interpret this result as normal/abnormal. RBC (test code = 59507-2) 4.25 M/UL See_Comment L [Automated messa ge] The system which generated this result transmitted reference range: 4.50-6.10 M/UL. The reference range was not used to interpret this result as normal/abnormal. RDW (test code = 32824-1) 13.8 % See_Comment [Automated messa ge] The system which generated this result transmitted reference range: 11.5-15.0 %. The reference range was not used to interpret this result as normal/abnormal. WBC (test code = 34573-1) 6.4 K/UL See_Comment [Automated messa ge] The system which generated this result transmitted reference range: 3.5-11.0 K/UL. The reference range was not used to interpret this result as normal/abnormal.
[2024-06-28] MEDS ORDERED: AZITHROMYCIN 250 MG TAB ONE (08:58)
[2024-06-28 09:44] LABS: Influenza A Ag Negative; Influenza B Ag Negative; SARS-CoV-2 Antigen Rapid Res Negative (Negative)
[2024-06-28 10:03] LABS: Absolute Lymphocytes (CBC) 1.1 K/uL (0.7-4.9); Absolute Monocytes 0.8 K/uL (0.1-1.3); Absolute Neutrophil 7.1 K/uL (1.8-8.0); Basophils % 0.3 % (0-1.3); Eosinophils % 0.3 % (0-4.4); Hematocrit 37.3 % (39.6-49.0); Hemoglobin 12.8 g/dL (13.6-17.9); Lymphocytes % 12.5 % (15.3-44.8); MCH 32.1 pg (27.0-35.0); MCHC 34.3 g/dL (32.0-36.0); MCV 93.6 fL (80-100); MPV 9.5 fL (7.6-11.3); Monocytes % 8.7 % (3.3-12.3); Neutrophils % 78.2 % (41.7-73.7); Platelets 155 thou/uL (152-406); RBC Red Blood Cell Count 3.98 M/uL (4.33-5.43); Red Cell Distribution Width 14.6 % (12.1-15.2)
[2024-06-28 10:25] LABS: Albumin 3.7 g/dL (3.4-5.0); Albumin/Globulin Ratio 0.9 (1.1-1.8); Bilirubin Total 0.6 mg/dL (0.2-1.0); Globulin 4.1 g/dL (2.3-3.5); Protein, Total 7.8 g/dL (6.4-8.2)
[2024-06-28] MEDS ORDERED: CEFTRIAXONE 2000 MG/VIAL ONE (10:49)
[2024-06-28] MEDS ORDERED: NA CHLORIDE 0.9% 100 ML ONE (10:49)
--- NOTE | 2024-06-28 11:25 | RAD REPORT ---
EXAM: Soft Tissue Neck W/Contr INDICATION: Neck pain TECHNIQUE: Helical CT examination of the neck [id number] cc Isovue-300 IV contrast. Sagittal and coronal reformations were generated. This exam was performed according to our departmental dose-optimization program, which includes automated exposure control, adjustment of the mA and/or kV according to patient size and/or use of iterative reconstruction technique. COMPARISON: None. FINDINGS: Left tonsillar enlargement. 1 cm mildly low-density area left peritonsillar region. Fullness left piriform sinus. Remainder of the visualized airway unremarkable. The remainder pharynx, larynx and subglottic trachea are unremarkable Parotid, submandibular and thyroid glands appear normal. No lymphadenopathy seen. No fluid within the visualized sinuses/mastoids. IMPRESSION: Mild left tonsillar enlargement presumably a tonsillitis. 1 cm low to intermediate density structure left peritonsillar region probably an early abscess. Fullness left piriform sinus usually secondary to incomplete distention. A subtle mass can also have this appearance and this can be monitored on subsequent imaging.
--- NOTE | 2024-06-28 11:39 | ER ---
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 Mostly on L side. Coronavirus ss screen: Client denies travel out of the [place] in the last 14 days. Ebola Screen: Patient denies exposure to infectious person. Patient denies travel to an Ebola-affected area in the 21 days before illness onset. Initial Sepsis Screen: Does the patient meet any 2 criteria? No. Patient's initial sepsis screen is negative. Does the patient have a suspected source of infection? No. Patient's initial sepsis screen is negative. Risk Assessment: Do you want to hurt yourself or someone else? Patient reports no desire to harm self or others. Onset of symptoms was June 25, 2024. 08:54 Method Of Arrival: Ambulatory ss 08:54 Acuity: [place] 3 ss Historical: - Allergies: 08:55 No Known Allergies; ss - PMHx: 08:55 coronary atherosclerosis; Hyperlipidemia; Hypertension; ss - PSHx: 08:55 heart stent; ss - Immunization history:: Adult Immunizations up to date. - Infectious Disease History:: Denies. - Social history:: Smoking status: Patient denies any tobacco usage or history of. Screenin:13 [facility] ED Fall Risk Assessment (Adult) History of falling in the last 3 months, ll1 including since admission No falls in past 3 months (0 pts) Confusion or Disorientation No (0 pts) Intoxicated or Sedated No (0 pts) Impaired Gait No (0 pts) Mobility Assist Device Used No (0 pt) Altered Elimination No (0 pt) Score/Fall Risk Level 0 - 2 = Low Risk Maintained a safe environment, Hourly rounding (assess needs \T\ fall precautionary measures) done. Abuse screen: Denies threats or abuse. Nutritional screening: No deficits noted. Tuberculosis screening: No symptoms or risk factors identified. Assessment: 09:01 Reassessment: No changes from previously documented assessment. Patient and/or family ll1 updated on plan of care and expected duration. Pain level reassessed. Patient is alert, oriented x 3, equal unlabored respirations, skin warm/dry/pink. 09:13 General: Appears in no apparent distress. Behavior is calm, cooperative, appropriate ll1 for age. Pain: Complains of pain in throat Quality of pain is described as aching. Respiratory: No deficits noted. Airway is patent Respiratory effort is even, unlabored. EENT: Throat is reddened Reports pain when swallowing. 10:06 Reassessment: No changes from previously documented assessment. Patient and/or family ll1 updated on plan of care and expected duration. Pain level reassessed. Patient is alert, oriented x 3, equal unlabored respirations, skin warm/dry/pink. 11:06 Reassessment: No changes from previously documented assessment. Patient and/or family ll1 updated on plan of care and expected duration. Pain level reassessed. gait steady to restroom. 11:47 Reassessment: No changes from previously documented assessment. Patient and/or family ll1 updated on plan of care and expected duration. Pain level reassessed. Patient is alert, oriented x 3, equal unlabored respirations, skin warm/dry/pink. Respiratory: Breath sounds are clear bilaterally. Vital Signs: 08:54 BP 155 / 75; Pulse 61; Resp 16; Temp 97.9(O); Pulse Ox 98% on R/A; Weight 78.93 kg; ss Height 5 ft. 6 in. ; Pain 5/10; 11:49 BP 151 / 71; Pulse 61; Resp 17; Pulse Ox 97% on R/A; Pain 0/10; ll1 08:54 Body Mass Index 28.08 (78.93 kg, 167.64 cm) ss 08:54 Pain Scale: Adult ss 11:49 Pain Scale: Adult ll1 ED Course: 08:41 Patient arrived in ED. im 08:41 Elder Cruz MD is Attending Physician. aidee 08:55 Triage completed. ss 08:55 Arm band placed on right wrist. ss 09:11 Group A Streptococcus Rapid Sent. ll1 09:11 COVID-19 Ag + Flu A+B Ag Sent. ll1 09:14 Patient has correct armband on for positive identification. Bed in low position. ll1 Provided Education on: ER procedures and process. 09:39 Rory Melgar, RN is Primary Nurse. ll1 09:55 Initial lab(s) drawn, by ED staff, sent to lab. ll1 09:55 Inserted saline lock: 22 gauge in right forearm, using aseptic technique. Blood ll1 collected. Flushed with 10 mL NS. 10:12 Missed attempt(s): 20 gauge in right antecubital area. Bleeding controlled, band aid am7 applied, catheter tip intact. 10:35 CT Soft Tissue Neck W/contr In Process Unspecified. EDMS 11:38 Jenn Hernandez MD is Referral Physician. aidee 11:48 IV discontinued, intact, bleeding controlled, No redness/swelling at site. Pressure ll1 dressing applied. 11:49 No provider procedures requiring assistance completed. ll1 Administered Medications: 09:11 Drug: AZITHromycin PO 500 mg PO once Route: PO; ll1 10:06 Follow up: Response: No adverse reaction ll1 10:06 Drug: NS 0.9% IV 500 ml 500 ml IV at 1 bolus once; to be given as a bolus over 30 ll1 minutes Volume: 500 ml; Route: IV; Rate: 1 bolus; Site: right forearm; 11:05 Follow up: Response: No adverse reaction; IV Status: Completed infusion; IV Intake: ll1 500ml 10:06 Drug: Decadron - Dexamethasone IVP 10 mg IVP once Route: IVP; Site: right forearm; ll1 11:06 Follow up: Response: No adverse reaction ll1 10:06 Drug: Clindamycin IVPB 900 mg IVPB once over 30 mins; (mix in 50 mL) Route: IVPB; ll1 Infused Over: 30 mins; Site: right forearm; 11:06 Follow up: Response: No adverse reaction; IV Status: Completed infusion; IV Intake: [id number] 11:06 Drug: Rocephin IV 2 grams IV at per protocol once; Given slow IV push per pharmarcy ll1 instructions Route: IV; Rate: per protocol; Site: right forearm; 11:49 Follow up: Response: No adverse reaction; IV Status: Completed infusion; IV Intake: ll1 100ml Medication: 09:14 VIS not applicable for this client. ll1 Intake: 11:05 IV: 500ml; Total: 500ml. ll1 11:06 IV: 50ml; Total: 550ml. ll1 11:49 IV: 100ml; Total: 650ml. ll1 Outcome: 11:38 Discharge ordered by . aidee 11:49 Discharged to home ambulatory, ll1 11:49 Condition: stable 11:49 Discharge instructions given to patient, Instructed on discharge instructions, follow up and referral plans. medication usage, Demonstrated understanding of instructions, follow-up care, medications, Prescriptions given X 1, 11:50 Patient left the ED. 1 Signatures: Dispatcher [employer] [facility]W[place] Elder Cruz MD MD cha Blanchard, Shelby, RN RN Rory Oliver RN RN [facility] Celina Turner Abigail am7
--- NOTE | 2024-06-28 11:39 | EDPHYS ---
Physician Documentation [facility] Name: Cordell Patterson Age: 84 yrs Sex: Male : 1940 Arrival Date: 06/28/2024 Time: 08:35 Bed 15 Private MD: ED Physician Elder Cruz HPI: 06/28 09:22 This 84 yrs old Male presents to ER via Ambulatory with complaints of Sore aidee Throat. 09:22 The patient presents with sore throat. The patient describes throat pain as burning. aidee Onset: The symptoms/episode began/occurred 2 day(s) ago. Severity of symptoms: At their worst the symptoms were moderate, in the emergency department the symptoms are unchanged. Modifying factors: The symptoms are alleviated by nothing, the symptoms are aggravated by swallowing. Associated signs and symptoms: The patient has no apparent associated signs or symptoms. The patient has not experienced similar symptoms in the past. Historical: - Allergies: 08:55 No Known Allergies; ss - PMHx: 08:55 coronary atherosclerosis; Hyperlipidemia; Hypertension; ss - PSHx: 08:55 heart stent; ss - Immunization history:: Adult Immunizations up to date. - Infectious Disease History:: Denies. - Social history:: Smoking status: Patient denies any tobacco usage or history of. ROS: 09:22 Constitutional: Negative for fever, chills, and weight loss, Eyes: Negative for injury, aidee pain, redness, and discharge, Neck: Negative for injury, pain, and swelling, Cardiovascular: Negative for chest pain, palpitations, and edema, Respiratory: Negative for shortness of breath, cough, wheezing, and pleuritic chest pain, Abdomen/GI: Negative for abdominal pain, nausea, vomiting, diarrhea, and constipation, Back: Negative for injury and pain, : Negative for injury, bleeding, discharge, and swelling, MS/Extremity: Negative for injury and deformity, Skin: Negative for injury, rash, and discoloration, Neuro: Negative for headache, weakness, numbness, tingling, and seizure, Psych: Negative for depression, anxiety, suicide ideation, homicidal ideation, and hallucinations, Allergy/Immunology: Negative for hives, rash, and allergies, Endocrine: Negative for neck swelling, polydipsia, polyuria, polyphagia, and marked weight changes, Hematologic/Lymphatic: Negative for swollen nodes, abnormal bleeding, and unusual bruising, : ENT: Positive for sore throat, Exam: : Constitutional: This is a well developed, well nourished patient who is awake, alert, aidee and in no acute distress. Head/Face: Normocephalic, atraumatic. Eyes: Pupils equal round and reactive to light, extra-ocular motions intact. Lids and lashes normal. Conjunctiva and sclera are non-icteric and not injected. Cornea within normal limits. Periorbital areas with no swelling, redness, or edema. Neck: Trachea midline, no thyromegaly or masses palpated, and no cervical lymphadenopathy. Supple, full range of motion without nuchal rigidity, or vertebral point tenderness. No Meningismus. Chest/axilla: Normal chest wall appearance and motion. Nontender with no deformity. No lesions are appreciated. Cardiovascular: Regular rate and rhythm with a normal S1 and S2. No gallops, murmurs, or rubs. Normal PMI, no JVD. No pulse deficits. Respiratory: Lungs have equal breath sounds bilaterally, clear to auscultation and percussion. No rales, rhonchi or wheezes noted. No increased work of breathing, no retractions or nasal flaring. Abdomen/GI: Soft, non-tender, with normal bowel sounds. No distension or tympany. No guarding or rebound. No evidence of tenderness throughout. Back: No spinal tenderness. No costovertebral tenderness. Full range of motion. Male : Normal genitalia with no discharge or lesions. Skin: Warm, dry with normal turgor. Normal color with no rashes, no lesions, and no evidence of cellulitis. : ENT: Mouth: Lips: normal, moist, Oral mucosa: normal, moist, Gums: normal with healthy appearance, Posterior pharynx: Tonsils: enlarged on the left, with erythema, Uvula: midline, non-edematous, no erythema, swelling, is not appreciated, Vital Signs: 08:54 BP 155 / 75; Pulse 61; Resp 16; Temp 97.9(O); Pulse Ox 98% on R/A; Weight 78.93 kg; ss Height 5 ft. 6 in. ; Pain 5/10; 11:49 BP 151 / 71; Pulse 61; Resp 17; Pulse Ox 97% on R/A; Pain 0/10; ll1 08:54 Body Mass Index 28.08 (78.93 kg, 167.64 cm) ss 08:54 Pain Scale: Adult ss 11:49 Pain Scale: Adult ll1 MDM: 08:41 Medical Screening Exam initiated [facility] 09:25 Differential diagnosis: hydrops, influenza, mononucleosis, peritonsillar abscess aidee retropharyngeal abcess tonsillitis, upper respiratory infection, uvulitis, viral syndrome. Data reviewed: vital signs, nurses notes, lab test result(s), radiologic studies, CT scan. Consideration of Admission/Observation Escalation of care including admission/observation considered. I considered the following discharge prescriptions or medication management in the emergency department Medications were administered in the Emergency Department. See MAR. Independent interpretation of the following test(s) in the Emergency Department CT Scan: My interpretation is ct soft tissue neck. Care significantly affected by the following chronic conditions: cad eliquis, high chlesterol. 06/28 08:43 Order name: Group A Streptococcus Rapid; Complete Time: 10:28 [facility] 06/28 08:43 Order name: COVID-19 Ag + Flu A+B Ag; Complete Time: 10:28 [facility] 06/28 09:22 Order name: CBC with Diff; Complete Time: 10:28 [facility] 06/28 09:22 Order name: CMP; Complete Time: 10:28 [facility] 06/28 09:46 Order name: Throat Culture [facility] 06/28 09:22 Order name: CT Soft Tissue Neck W/contr aidee Administered Medications: 09:11 Drug: AZITHromycin PO 500 mg PO once Route: PO; ll1 10:06 Follow up: Response: No adverse reaction ll1 10:06 Drug: NS 0.9% IV 500 ml 500 ml IV at 1 bolus once; to be given as a bolus over 30 ll1 minutes Volume: 500 ml; Route: IV; Rate: 1 bolus; Site: right forearm; 11:05 Follow up: Response: No adverse reaction; IV Status: Completed infusion; IV Intake: ll1 500ml 10:06 Drug: Decadron - Dexamethasone IVP 10 mg IVP once Route: IVP; Site: right forearm; ll1 11:06 Follow up: Response: No adverse reaction ll1 10:06 Drug: Clindamycin IVPB 900 mg IVPB once over 30 mins; (mix in 50 mL) Route: IVPB; ll1 Infused Over: 30 mins; Site: right forearm; 11:06 Follow up: Response: No adverse reaction; IV Status: Completed infusion; IV Intake: [id number] 11:06 Drug: Rocephin IV 2 grams IV at per protocol once; Given slow IV push per pharmarcy ll1 instructions Route: IV; Rate: per protocol; Site: right forearm; 11:49 Follow up: Response: No adverse reaction; IV Status: Completed infusion; IV Intake: ll1 100ml Disposition Summary: 06/28/24 11:38 Discharge Ordered Notes: Location: Home aidee Problem: new aidee Symptoms: have improved aidee Condition: Stable aidee Diagnosis - Peritonsillar abscess - 1 cm left aidee - snf (current) use of anticoagulants - hold for 24 hours aidee Followup: aidee - With: Jenn Hernandez MD - When: Tomorrow - Reason: Recheck today's complaints, Continuance of care, Re-evaluation by your physician Discharge Instructions: - Peritonsillar Abscess aidee - Peritonsillar Abscess, [id number] aidee - Discharge Summary Sheet ss Forms: - Medication Reconciliation Form aidee - Antibiotic Education aidee - Prescription Opioid Use aidee - Patient Portal Instructions aidee - Leadership Thank You Letter aidee - SBAR form ss Prescriptions: - Clindamycin HCl 300 mg Oral Capsule - take 1 capsule ORAL route every 6 hours for 10 days; 40 capsule; Refills: 0, aidee Product Selection Permitted Signatures: Dispatcher [employer] Elder Stratton MD MD cha Blanchard, Shelby, RN RN ss Rory Melgar RN RN ll1 Corrections: (The following items were deleted from the chart) 09:22 09:22 Soft Tissue Neck W/Contr+CT.RAD.BRZ ordered. EDMS EDMS
[2024-06-28 12:02] VITALS: TEMP 97.9
[2024-06-28 12:04] VITALS: BP 151/71; O2SAT 97
== END 2024-06-28 11:50 | disposition home or self-care (01) ==
LOC: ER 08:35
DX: J36 Peritonsillar abscess (principal); Z79.01 Long term (current) use of anticoagulants; Z11.52 Encounter for screening for COVID-19
CPT/HCPCS: 96365; 96367; 87070; 85025; 36415; 80053; 70491; 96375; 99284; 87428; Q9967; J0696